=== PATIENT | female | born 1945 | race Caucasian/White ===

== ENCOUNTER 2016-08-23 16:10 | Emergency (ER) | payer MEDICARE, OTHER ==
[2016-08-23 16:36] VITALS: TEMP 97.7
[2016-08-23] MEDS: SODIUM CHLORIDE 0.9% 500 ML IV SCH ×2 (17:40→21:48)
[2016-08-23 18:01] LABS: Basophils % (A) 0 %; CH 30.3; CHCM 33.4; Eosinophils % (A) 0 %; HCT 36.5 % (34.0-46.0); HDW 2.41; HGB 12.1 gm/dL (11.4-16.0); Luc # (Auto) 0.11; Luc % (Auto) 2; Lymphocytes # (A) 0.5 k/uL (1.0-4.8); Lymphocytes % (A) 7 %; MCV 90.8 fL (80.0-100.0); Monocytes # (A) 0.4 k/uL (0-1.0); Monocytes % (A) 5 %; Neutrophils # (A) 6.2 k/uL (1.3-7.7); Neutrophils % (A) 87 %; RBC 4.02 m/uL (3.80-5.40); RDW 14.4 % (11.5-15.5); WBC 7.1 k/uL (3.8-10.6); WBC (Perox) 7.09
[2016-08-23 18:07] LABS: ALT 53 U/L (9-52); AST 25 U/L (14-36); Alkaline Phosphatase 75 U/L (38-126); Anion Gap 4 mmol/L; Blood Urea Nitrogen 34 mg/dL (7-17); Calcium 9.2 mg/dL (8.4-10.2); Carbon Dioxide 27 mmol/L (22-30); Chloride 107 mmol/L (98-107); Glucose 110 mg/dL (74-99); Non-African American GFR(MDRD) 55 (>60 ml/min/1.73 sqM); Potassium 4.4 mmol/L (3.5-5.1); Sodium 138 mmol/L (137-145); Total Bilirubin 0.5 mg/dL (0.2-1.3); Total Protein 5.6 g/dL (6.3-8.2)
[2016-08-23 18:14] LABS: Appearance,Urine Cloudy (Clear); Bacteria,Urine Rare /hpf; Bilirubin,Urine Negative (Negative); Calcium Oxalate Crystals,Urine Many /hpf; Glucose,Urine (UA) Negative (Negative); Ketones,Urine Negative (Negative); Leukocyte Esterase,Urine Trace (Negative); Mucus,Urine Rare /hpf; Nitrite,Urine Negative (Negative); Particle Count 3022; Protein,Urine 1+ (Negative); RBC,Urine 4 /hpf (0-5); Specific Gravity,Urine 1.028 (1.001-1.035); Squamous Epithelial Cell,Urine <1 /hpf (0-4); UA Billing (MACRO vs. MICRO) MICRO; WBC,Urine 10 /hpf (0-5)
[2016-08-23 18:17] LABS: INR 0.9 (<1.1); Prothrombin Time 9.5 sec (9.0-12.0)
[2016-08-23 18:18] LABS: Creatine Kinase MB 0.6 ng/mL (0.0-2.4); Troponin I 0.022 ng/mL (0.000-0.034)
[2016-08-23 18:25] LABS: Partial Thromboplastin Time 19.4 sec (22.0-30.0)
[2016-08-23] MEDS ORDERED: SODIUM CHLORIDE 0.9% 1,000 ML IV ONE (20:00)
--- NOTE | 2016-08-23 20:52 | ED ---
General Adult HPI - General Chief complaint: Recheck/Abnormal Lab/Rx Stated complaint: Sent by [facility]. Time Seen by Provider: 08/23/16 16:46 Source: patient, RN notes reviewed Mode of arrival: ambulatory Limitations: no limitations - History of Present Illness Initial comments: This patient is a 70-year-old woman who presents to be evaluated for decreased urinary output. The patient states that she had been at her radiation oncologist's today at the [facility]. She told him there that she had not urinated today. She states that she also feels she has not been producing much urine over the past 2-3 days. She attributes this to the steroids that she is taking for her metastatic cancer. The patient is denying symptoms of urinary tract infection including no fevers or chills, no flank or abdominal pain, no dysuria or hematuria. -: hour(s) - Related Data Home Medications Medication Instructions Recorded Confirmed Cimetidine [Tagamet] 400 mg PO BID 05/26/14 08/23/16 Metoprolol Tartrate [Lopressor] 25 mg PO BID 05/26/14 08/23/16 Anastrozole [Arimidex] 1 mg PO DAILY 07/06/14 08/23/16 Beclomethasone Dipropionate [Qvar 1 - 2 puff INHALATION RT-BID PRN 06/25/15 80 mcg/puff] Calcium Carbonate/Vitamin D3 1 tab PO TID 06/25/15 08/23/16 [Calcium 600 + Vit D Tablet] Cyanocobalamin [Vitamin B-12] 500 mcg PO DAILY 06/25/15 08/23/16 LORazepam [Ativan] 0.5 mg PO BID PRN 06/25/15 08/23/16 Multivit with Calcium,Iron,Min 1 tab PO DAILY 06/25/15 08/23/16 [Women's Daily Multivitamin] Denosumab [Prolia] 60 mg SQ Q180D 06/30/15 08/23/16 Dexamethasone 4 mg PO BID 07/07/16 08/23/16 Enalapril [Vasotec] 5 mg PO DAILY 07/12/16 08/23/16 Azithromycin [Zithromax] 500 mg PO DAILY 08/23/16 08/23/16 Previous Rx's Medication Instructions Recorded Sulfamethox-Tmp 800-160Mg [Bactrim 1 each PO Q12HR #6 tab 08/23/16 Ds] Allergies Allergy/AdvReac Type Severity Reaction Status Date / Time ciprofloxacin HCl Allergy Itching Verified 08/23/16 17:10 [From Cipro] NSAIDS (Non-Steroidal Allergy Rash/Hives Verified 08/23/16 17:10 Anti-Inflamma aripiprazole [From Abilify] AdvReac sleepiness Verified 08/23/16 17:10 Penicillins AdvReac Nausea Verified 08/23/16 17:10 Review of Systems ROS Statement: Those systems with pertinent positive or pertinent negative responses have been documented in the HPI. ROS Other: All systems not noted in ROS Statement are negative. Constitutional: Reports: weakness. Denies: fever, chills Respiratory: Denies: cough, dyspnea Cardiovascular: Denies: chest pain, palpitations Endocrine: Reports: fatigue Gastrointestinal: Denies: abdominal pain, nausea, vomiting, diarrhea, constipation Genitourinary: Reports: other (Decreased urination). Denies: dysuria, frequency , hematuria Musculoskeletal: Denies: back pain Skin: Denies: rash Neurological: Reports: weakness (Generalized weakness). Denies: headache Past Medical History Past Medical History: Asthma, Cancer, COPD, GERD/Reflux, Hypertension, Osteoarthritis (OA), Renal Disease Additional Past Medical History / Comment(s): osteoporosis,right kidney CA, right BREAST CA-had chemo & radiation 2012, sliding hiatal hernia, 07/09 brain, lung, lymph node of unknown primary at this time, starting radiation 07/12/16. History of Any Multi-Drug Resistant Organisms: None Reported Past Surgical History: Appendectomy, Cholecystectomy, Orthopedic Surgery Additional Past Surgical History / Comment(s): RT mastectomy, lymph node removal , R wrist fx repair, right nephrectomy, left hand surg. Past Anesthesia/Blood Transfusion Reactions: No Reported Reaction Past Psychological History: No Psychological Hx Reported Smoking Status: Former smoker Past Alcohol Use History: Occasional Additional Past Alcohol Use History / Comment(s): quit smoking 1 month, smoked 1 /2-1ppd since mid Past Drug Use History: None Reported - Past Family History Mother Family Medical History: No Reported History Additional Family Medical History / Comment(s): pt adopted no family history General Exam Limitations: no limitations General appearance: alert, in no apparent distress Head exam: Present: atraumatic, other (Treviño facies) Eye exam: Present: normal appearance. Absent: scleral icterus, conjunctival injection ENT exam: Present: mucous membranes dry Neck exam: Present: normal inspection, full ROM Respiratory exam: Present: normal lung sounds bilaterally. Absent: respiratory distress, wheezes, rales, rhonchi Cardiovascular Exam: Present: regular rate, normal rhythm, normal heart sounds. Absent: systolic murmur, diastolic murmur, rubs, gallop GI/Abdominal exam: Present: soft. Absent: distended, tenderness, guarding, rebound, rigid, mass Extremities exam: Absent: pedal edema, calf tenderness Back exam: Present: normal inspection. Absent: CVA tenderness (R), CVA tenderness (L) Neurological exam: Present: alert Skin exam: Present: warm, dry, intact, normal color. Absent: rash Course Vital Signs 08/23/16 08/23/16 08/23/16 16:33 17:14 18:46 Temperature 97.7 F Pulse Rate 90 64 Respiratory 18 18 18 Rate Blood Pressure 111/79 133/74 O2 Sat by Pulse 97 98 Oximetry 08/23/16 20:35 Temperature Pulse Rate 74 Respiratory 16 Rate Blood Pressure 124/69 O2 Sat by Pulse 97 Oximetry EKG Findings - EKG Results: EKG: interpreted by FRANK, sinus rhythm (Rate 70 bpm), normal axis, normal QRS, normal ST/T, no acute changes Medical Decision Making - Medical Decision Making Given the patient's history and the fact that she states she only has one kidney she had labs sent. The results show that her creatinine is at approximately her baseline, but she does have elevated BUN, consistent with prerenal. Patient will be given IV fluid. She also has a few white cells in the urine, and she is given antibiotics here and prescription for the same. She requests to go home and states that she is feeling better. Given that she has come here from her oncologist's office, I paged and discussed her case with Dr. Mckeon, the oncologist. The patient is clear to go home and have close follow-up. Discussed return parameters and appropriate follow-up. - Lab Data Result diagrams: 08/23/16 17:35 08/23/16 17:35 Lab Results 08/23/16 08/23/16 08/23/16 Range/Units 17:35 17:35 17:35 WBC 7.1 (3.8-10.6) k/uL RBC 4.02 (3.80-5.40) m/uL Hgb 12.1 (11.4-16.0) gm/dL Hct 36.5 (34.0-46.0) % MCV 90.8 (80.0-100.0) fL MCH 30.0 (25.0-35.0) pg MCHC 33.0 (31.0-37.0) g/dL RDW 14.4 (11.5-15.5) % Plt Count 137 L (150-450) k/uL Neutrophils % 87 % Lymphocytes % 7 % Monocytes % 5 % Eosinophils % 0 % Basophils % 0 % Neutrophils # 6.2 (1.3-7.7) k/uL Lymphocytes # 0.5 L (1.0-4.8) k/uL Monocytes # 0.4 (0-1.0) k/uL Eosinophils # 0.0 (0-0.7) k/uL Basophils # 0.0 (0-0.2) k/uL PT (9.0-12.0) sec INR (<1.1) APTT (22.0-30.0) sec Sodium 138 (137-145) mmol/L Potassium 4.4 (3.5-5.1) mmol/L Chloride 107 (98-107) mmol/L Carbon Dioxide 27 (22-30) mmol/L Anion Gap 4 mmol/L BUN 34 H (7-17) mg/dL Creatinine 1.00 (0.52-1.04) mg/dL Est GFR (MDRD) Af Amer >60 (>60 ml/min/1.73 sqM) Est GFR (MDRD) Non-Af 55 (>60 ml/min/1.73 sqM) Glucose 110 H (74-99) mg/dL Plasma Lactic Acid Sami (0.7-2.0) mmol/L Calcium 9.2 (8.4-10.2) mg/dL Total Bilirubin 0.5 (0.2-1.3) mg/dL AST 25 (14-36) U/L ALT 53 H (9-52) U/L Alkaline Phosphatase 75 (38-126) U/L Total Creatine Kinase 32 (30-135) U/L CK-MB (CK-2) 0.6 (0.0-2.4) ng/mL CK-MB (CK-2) Rel Index 1.9 Troponin I 0.022 (0.000-0.034) ng/mL Total Protein 5.6 L (6.3-8.2) g/dL Albumin 3.0 L (3.5-5.0) g/dL Cortisol 1 ug/dL Urine Color Urine Appearance (Clear) Urine pH (5.0-8.0) Ur Specific [place] (1.001-1.035) Urine Protein (Negative) Urine Glucose (UA) (Negative) Urine Ketones (Negative) Urine Blood (Negative) Urine Nitrate (Negative) Urine Bilirubin (Negative) Urine Urobilinogen (<2.0) mg/dL Ur Leukocyte Esterase (Negative) Urine RBC (0-5) /hpf Urine WBC (0-5) /hpf Ur Squamous Epith Cells (0-4) /hpf Calcium Oxalate Crystal (None) /hpf Urine Bacteria (None) /hpf Hyaline Casts (0-2) /lpf Urine Mucus (None) /hpf 08/23/16 08/23/16 08/23/16 Range/Units 17:35 17:35 17:47 WBC (3.8-10.6) k/uL RBC (3.80-5.40) m/uL Hgb (11.4-16.0) gm/dL Hct (34.0-46.0) % MCV (80.0-100.0) fL MCH (25.0-35.0) pg MCHC (31.0-37.0) g/dL RDW (11.5-15.5) % Plt Count (150-450) k/uL Neutrophils % % Lymphocytes % % Monocytes % % Eosinophils % % Basophils % % Neutrophils # (1.3-7.7) k/uL Lymphocytes # (1.0-4.8) k/uL Monocytes # (0-1.0) k/uL Eosinophils # (0-0.7) k/uL Basophils # (0-0.2) k/uL PT 9.5 (9.0-12.0) sec INR 0.9 (<1.1) APTT 19.4 L (22.0-30.0) sec Sodium (137-145) mmol/L Potassium (3.5-5.1) mmol/L Chloride (98-107) mmol/L Carbon Dioxide (22-30) mmol/L Anion Gap mmol/L BUN (7-17) mg/dL Creatinine (0.52-1.04) mg/dL Est GFR (MDRD) Af Amer (>60 ml/min/1.73 sqM) Est GFR (MDRD) Non-Af (>60 ml/min/1.73 sqM) Glucose (74-99) mg/dL Plasma Lactic Acid Sami 1.2 (0.7-2.0) mmol/L Calcium (8.4-10.2) mg/dL Total Bilirubin (0.2-1.3) mg/dL AST (14-36) U/L ALT (9-52) U/L Alkaline Phosphatase (38-126) U/L Total Creatine Kinase (30-135) U/L CK-MB (CK-2) (0.0-2.4) ng/mL CK-MB (CK-2) Rel Index Troponin I (0.000-0.034) ng/mL Total Protein (6.3-8.2) g/dL Albumin (3.5-5.0) g/dL Cortisol ug/dL Urine Color Yellow Urine Appearance Cloudy H (Clear) Urine pH 6.0 (5.0-8.0) Ur Specific [place] 1.028 (1.001-1.035) Urine Protein 1+ H (Negative) Urine Glucose (UA) Negative (Negative) Urine Ketones Negative (Negative) Urine Blood Negative (Negative) Urine Nitrate Negative (Negative) Urine Bilirubin Negative (Negative) Urine Urobilinogen 3.0 (<2.0) mg/dL Ur Leukocyte Esterase Trace H (Negative) Urine RBC 4 (0-5) /hpf Urine WBC 10 H (0-5) /hpf Ur Squamous Epith Cells <1 (0-4) /hpf Calcium Oxalate Crystal Many H (None) /hpf Urine Bacteria Rare H (None) /hpf Hyaline Casts 1 (0-2) /lpf Urine Mucus Rare H (None) /hpf Disposition Clinical Impression: Dehydration, Urinary tract infection Disposition: HOME SELF-CARE Condition: Fair Instructions: Urinary Tract Infection in Women (ED) Prescriptions: Sulfamethox-Tmp 800-160Mg [Bactrim Ds] 1 each PO Q12HR #6 tab Referrals: Ronnell Koo MD [Primary Care Provider] - 1-2 days
[2016-08-23 21:01] VITALS: BP 124/69; PULSE 74; RESP 16
== END 2016-08-23 21:20 | disposition home or self-care (01) ==
LOC: EC 16:10
DX: E86.0 Dehydration (principal); N39.0 Urinary tract infection, site not specified; K21.9 Gastro-esophageal reflux disease without esophagitis; I10 Essential (primary) hypertension; J45.909 Unspecified asthma, uncomplicated; J44.9 Chronic obstructive pulmonary disease, unspecified; Z79.899 Other long term (current) drug therapy; Z88.0 Allergy status to penicillin; Z88.6 Allergy status to analgesic agent; Z88.1 Allergy status to other antibiotic agents; Z88.8 Allergy status to other drugs, medicaments and biological substances; Z85.3 Personal history of malignant neoplasm of breast; Z87.891 Personal history of nicotine dependence; Z79.51 Long term (current) use of inhaled steroids; Z92.3 Personal history of irradiation; Z92.21 Personal history of antineoplastic chemotherapy
CPT/HCPCS: 36415; 93005; 80053; 82533; 82550; 82553; 83605; 84484; 85025; 85610; 85730; 81001; 87040; 87086; 99283; 96365; J0696; 87077; 87186

== ENCOUNTER 2016-09-04 11:28 | Inpatient (IN) | payer BC, MEDICARE, OTHER ==
[2016-09-04] MEDS ORDERED: SODIUM CHLORIDE 0.9% 1,000 ML IV STA (11:48)
--- NOTE | 2016-09-04 11:50 | ED ---
General Adult HPI - General Chief complaint: Weakness Stated complaint: Weakness Time Seen by Provider: 09/04/16 11:38 Source: patient, EMS, RN notes reviewed Mode of arrival: EMS Limitations: physical limitation - History of Present Illness Initial comments: Patient is a pleasant 70-year-old female presenting to the emergency department for concerns of weakness and not being able to take care of herself. Patient does have a history of breast cancer with radiation to the brain. Patient did recently finish radiation therapy and has started chemotherapy. Patient does have progressive right-sided weakness. Patient is unable to get in and out of bed on her own. Patient is unable to use her walker. Patient is fearful living at home at this time. Patient states she has had some dyspnea and elevated heart rate for a couple of months now. - Related Data Home Medications Medication Instructions Recorded Confirmed Cimetidine [Tagamet] 400 mg PO BID 05/26/14 09/04/16 Metoprolol Tartrate [Lopressor] 25 mg PO BID 05/26/14 09/04/16 Beclomethasone Dipropionate [Qvar 1 - 2 puff INHALATION RT-BID PRN 06/25/1506/10 80 mcg/puff] Calcium Carbonate/Vitamin D3 1 tab PO TID 06/25/15 09/04/16 [Calcium 600 + Vit D Tablet] Cyanocobalamin [Vitamin B-12] 500 mcg PO DAILY 06/25/15 09/04/16 Multivit with Calcium,Iron,Min 1 tab PO DAILY 06/25/15 09/04/16 [Women's Daily Multivitamin] Denosumab [Prolia] 60 mg SQ Q180D 06/30/15 09/04/16 Dexamethasone 4 mg PO BID 07/07/16 09/04/16 Enalapril [Vasotec] 5 mg PO DAILY 07/12/16 09/04/16 Anastrozole [Arimidex] 1 mg PO DAILY 09/04/16 09/04/16 LORazepam [Ativan] 0.5 mg PO BID PRN 09/04/16 09/04/16 Allergies Allergy/AdvReac Type Severity Reaction Status Date / Time ciprofloxacin HCl Allergy Itching Verified 09/04/16 13:13 [From Cipro] NSAIDS (Non-Steroidal Allergy Rash/Hives Verified 09/04/16 13:13 Anti-Inflamma aripiprazole [From Abilify] AdvReac sleepiness Verified 09/04/16 13:13 Penicillins AdvReac Nausea Verified 09/04/16 13:13 Review of Systems ROS Statement: Those systems with pertinent positive or pertinent negative responses have been documented in the HPI. ROS Other: All systems not noted in ROS Statement are negative. Constitutional: Denies: fever Eyes: Denies: eye pain ENT: Denies: ear pain Respiratory: Reports: dyspnea. Denies: cough Cardiovascular: Reports: palpitations Endocrine: Reports: fatigue Gastrointestinal: Denies: abdominal pain Genitourinary: Denies: dysuria Skin: Denies: rash Neurological: Reports: weakness (Right-sided) Past Medical History Past Medical History: Asthma, Cancer, COPD, GERD/Reflux, Hypertension, Osteoarthritis (OA), Renal Disease Additional Past Medical History / Comment(s): osteoporosis,right kidney CA, right BREAST CA-had chemo & radiation 2012, sliding hiatal hernia, 07/09 brain, lung, lymph node of unknown primary at this time, starting radiation 07/12/16. History of Any Multi-Drug Resistant Organisms: None Reported Past Surgical History: Appendectomy, Cholecystectomy, Orthopedic Surgery Additional Past Surgical History / Comment(s): RT mastectomy, lymph node removal , R wrist fx repair, right nephrectomy, left hand surg. Past Anesthesia/Blood Transfusion Reactions: No Reported Reaction Past Psychological History: No Psychological Hx Reported Smoking Status: Former smoker Past Alcohol Use History: Occasional Additional Past Alcohol Use History / Comment(s): quit smoking 1 month, smoked 1 /2-1ppd since mid Past Drug Use History: None Reported - Past Family History Mother Family Medical History: No Reported History Additional Family Medical History / Comment(s): pt adopted no family history General Exam Limitations: no limitations General appearance: alert, in no apparent distress Head exam: Present: atraumatic Eye exam: Present: normal appearance, PERRL ENT exam: Present: normal oropharynx Neck exam: Present: normal inspection Respiratory exam: Present: normal lung sounds bilaterally Cardiovascular Exam: Present: tachycardia GI/Abdominal exam: Present: soft. Absent: tenderness Extremities exam: Present: normal inspection Neurological exam: Present: alert Expanded Motor strength exam: RUE: 4, LUE: 5, RLE: 3, LLE: 5 Psychiatric exam: Present: normal affect, normal mood Skin exam: Absent: rash Course Vital Signs 09/04/16 09/04/16 11:38 13:34 Temperature 98.1 F 98.3 F Pulse Rate 134 H 130 H Respiratory 18 17 Rate Blood Pressure 138/73 118/86 O2 Sat by Pulse 96 98 Oximetry EKG Findings - EKG Comments: EKG Findings:: Sinus tachycardia 131. NH 142. QRS 68. QT 286. QTc 422. Normal axis. Normal QRS. Normal ST-T. Medical Decision Making - Medical Decision Making Patient reexamined and unchanged. Case was discussed in detail with Dr. Velez who did come evaluate the patient. Case also discussed with Dr. Hanson, who will admit. - Lab Data Result diagrams: 09/04/16 12:15 09/04/16 12:15 Lab Results 09/04/16 09/04/16 09/04/16 Range/Units 12:15 12:15 12:15 WBC 6.4 (3.8-10.6) k/uL RBC 4.35 (3.80-5.40) m/uL Hgb 12.8 (11.4-16.0) gm/dL Hct 39.3 (34.0-46.0) % MCV 90.3 (80.0-100.0) fL MCH 29.4 (25.0-35.0) pg MCHC 32.6 (31.0-37.0) g/dL RDW 14.7 (11.5-15.5) % Plt Count 108 L (150-450) k/uL Neutrophils % 73 % Lymphocytes % 15 % Monocytes % 7 % Eosinophils % 1 % Basophils % 1 % Neutrophils # 4.7 (1.3-7.7) k/uL Lymphocytes # 1.0 (1.0-4.8) k/uL Monocytes # 0.5 (0-1.0) k/uL Eosinophils # 0.1 (0-0.7) k/uL Basophils # 0.0 (0-0.2) k/uL PT (9.0-12.0) sec INR (<1.1) APTT (22.0-30.0) sec Sodium 137 (137-145) mmol/L Potassium 4.2 (3.5-5.1) mmol/L Chloride 103 (98-107) mmol/L Carbon Dioxide 25 (22-30) mmol/L Anion Gap 9 mmol/L BUN 19 H (7-17) mg/dL Creatinine 1.19 H (0.52-1.04) mg/dL Est GFR (MDRD) Af Amer 55 (>60 ml/min/1.73 sqM) Est GFR (MDRD) Non-Af 45 (>60 ml/min/1.73 sqM) Glucose 140 H (74-99) mg/dL Calcium 10.0 (8.4-10.2) mg/dL Total Bilirubin 1.6 H (0.2-1.3) mg/dL AST 38 H (14-36) U/L ALT 53 H (9-52) U/L Alkaline Phosphatase 88 (38-126) U/L Total Creatine Kinase 91 (30-135) U/L CK-MB (CK-2) 0.7 (0.0-2.4) ng/mL CK-MB (CK-2) Rel Index 0.8 Troponin I 0.058 H* (0.000-0.034) ng/mL Total Protein 6.9 (6.3-8.2) g/dL Albumin 3.6 (3.5-5.0) g/dL Urine Color Urine Appearance (Clear) Urine pH (5.0-8.0) Ur Specific [place] (1.001-1.035) Urine Protein (Negative) Urine Glucose (UA) (Negative) Urine Ketones (Negative) Urine Blood (Negative) Urine Nitrate (Negative) Urine Bilirubin (Negative) Urine Urobilinogen (<2.0) mg/dL Ur Leukocyte Esterase (Negative) Urine RBC (0-5) /hpf Urine WBC (0-5) /hpf Ur Squamous Epith Cells (0-4) /hpf Calcium Oxalate Crystal (None) /hpf Hyaline Casts (0-2) /lpf Urine Mucus (None) /hpf 09/04/16 09/04/16 Range/Units 12:15 12:20 WBC (3.8-10.6) k/uL RBC (3.80-5.40) m/uL Hgb (11.4-16.0) gm/dL Hct (34.0-46.0) % MCV (80.0-100.0) fL MCH (25.0-35.0) pg MCHC (31.0-37.0) g/dL RDW (11.5-15.5) % Plt Count (150-450) k/uL Neutrophils % % Lymphocytes % % Monocytes % % Eosinophils % % Basophils % % Neutrophils # (1.3-7.7) k/uL Lymphocytes # (1.0-4.8) k/uL Monocytes # (0-1.0) k/uL Eosinophils # (0-0.7) k/uL Basophils # (0-0.2) k/uL PT 10.1 (9.0-12.0) sec INR 1.0 (<1.1) APTT 21.8 L (22.0-30.0) sec Sodium (137-145) mmol/L Potassium (3.5-5.1) mmol/L Chloride (98-107) mmol/L Carbon Dioxide (22-30) mmol/L Anion Gap mmol/L BUN (7-17) mg/dL Creatinine (0.52-1.04) mg/dL Est GFR (MDRD) Af Amer (>60 ml/min/1.73 sqM) Est GFR (MDRD) Non-Af (>60 ml/min/1.73 sqM) Glucose (74-99) mg/dL Calcium (8.4-10.2) mg/dL Total Bilirubin (0.2-1.3) mg/dL AST (14-36) U/L ALT (9-52) U/L Alkaline Phosphatase (38-126) U/L Total Creatine Kinase (30-135) U/L CK-MB (CK-2) (0.0-2.4) ng/mL CK-MB (CK-2) Rel Index Troponin I (0.000-0.034) ng/mL Total Protein (6.3-8.2) g/dL Albumin (3.5-5.0) g/dL Urine Color Yellow Urine Appearance Clear (Clear) Urine pH 6.0 (5.0-8.0) Ur Specific [place] 1.021 (1.001-1.035) Urine Protein 1+ H (Negative) Urine Glucose (UA) Negative (Negative) Urine Ketones Negative (Negative) Urine Blood Trace H (Negative) Urine Nitrate Negative (Negative) Urine Bilirubin Negative (Negative) Urine Urobilinogen <2.0 (<2.0) mg/dL Ur Leukocyte Esterase Negative (Negative) Urine RBC 6 H (0-5) /hpf Urine WBC 4 (0-5) /hpf Ur Squamous Epith Cells <1 (0-4) /hpf Calcium Oxalate Crystal Few H (None) /hpf Hyaline Casts 3 H (0-2) /lpf Urine Mucus Rare H (None) /hpf - Radiology Data Radiology results: image reviewed (Chest x-ray shows right middle lobe infiltrate) Disposition Clinical Impression: Weakness, Pneumonia Disposition: ADMITTED IP TO THIS HOSP
[2016-09-04 12:49] LABS: Basophils % (A) 1 %; CH 30.5; CHCM 33.9; Eosinophils # (A) 0.1 k/uL (0-0.7); Eosinophils % (A) 1 %; HCT 39.3 % (34.0-46.0); HDW 2.68; HGB 12.8 gm/dL (11.4-16.0); Luc # (Auto) 0.17; Luc % (Auto) 3; Lymphocytes % (A) 15 %; MCH 29.4 pg (25.0-35.0); MCHC 32.6 g/dL (31.0-37.0); MCV 90.3 fL (80.0-100.0); Mean Platelet Volume 8.4; Monocytes # (A) 0.5 k/uL (0-1.0); Monocytes % (A) 7 %; Neutrophils # (A) 4.7 k/uL (1.3-7.7); Neutrophils % (A) 73 %; RBC 4.35 m/uL (3.80-5.40); RDW 14.7 % (11.5-15.5); WBC 6.4 k/uL (3.8-10.6); WBC (Perox) 6.66
--- NOTE | 2016-09-04 12:53 | XR ---
EXAMINATION TYPE: XR chest 2V DATE OF EXAM: 09/04/2016 12:38 PM COMPARISON: 04/27/2016 HISTORY: Weakness TECHNIQUE: Frontal and lateral views of the chest are obtained. FINDINGS: There is some infiltrate in the right middle lobe seen on the lateral view. The other lung anderson are clear. There is no heart failure. Heart is slightly enlarged. There are chest leads. Ther e is no definite pleural effusion. Bony thorax appears intact. IMPRESSION: There is new right middle lobe pneumonic infiltrate compared to last exam. No heart fail ure.
[2016-09-04 13:00] LABS: Appearance,Urine Clear (Clear); Bilirubin,Urine Negative (Negative); Calcium Oxalate Crystals,Urine Few /hpf; Glucose,Urine (UA) Negative (Negative); Ketones,Urine Negative (Negative); Leukocyte Esterase,Urine Negative (Negative); Mucus,Urine Rare /hpf; Nitrite,Urine Negative (Negative); Particle Count 4601; Protein,Urine 1+ (Negative); RBC,Urine 6 /hpf (0-5); Specific Gravity,Urine 1.021 (1.001-1.035); Squamous Epithelial Cell,Urine <1 /hpf (0-4); UA Billing (MACRO vs. MICRO) MICRO; Urobilinogen,Urine <2.0 mg/dL (<2.0); WBC,Urine 4 /hpf (0-5)
[2016-09-04 13:09] LABS: Prothrombin Time 10.1 sec (9.0-12.0)
[2016-09-04 13:10] LABS: Total Bilirubin 1.6 mg/dL (0.2-1.3); Total Protein 6.9 g/dL (6.3-8.2)
[2016-09-04 13:11] LABS: Potassium 4.2 mmol/L (3.5-5.1)
[2016-09-04 13:13] LABS: Partial Thromboplastin Time 21.8 sec (22.0-30.0)
[2016-09-04 13:29] LABS: Creatine Kinase MB 0.7 ng/mL (0.0-2.4)
[2016-09-04 13:38] LABS: Troponin I 0.058 ng/mL (0.000-0.034)
[2016-09-04] MEDS ORDERED: PNEUMONIA PROTOCOL UTILIZED 1 EACH MISC PO PRN (14:28)
[2016-09-04] MEDS ORDERED: AZITHROMYCIN 500 MG in SODIUM CHLORIDE 0.9% 250 ML IVPB STA (14:28)
[2016-09-04 17:07] VITALS: BMI 34.0
[2016-09-04] MEDS ORDERED: DENOSUMAB 60 MG/ML 1 ML SYRINGE SQ SCH (17:15)
--- NOTE | 2016-09-04 19:42 | HP ---
DATE OF ADMISSION: Patient is a 70-year-old pleasant female with history of breast cancer, is actively receiving radiation therapy for metastatic disease for pain, came in with complaints of generalized weakness, unable to take care of herself, anxiety, has been going on for 3 days. Patient has been subsequently getting ( ). Patient is also complaining of ( ) with musculoskeletal chest pain in the right chest, probably from the metastatic disease. Patient appears to have a few mets into the adrenal glands, she says it is kidney and some other places. Patient is on Decadron for metastasis to the brain. Patient is presently undergoing radiation. Patient is having generalized weakness and patient was brought into [facility] and patient is complaining of some minimal cough as well as multiple episodes of diarrhea yesterday and cough with sputum production. Patient is unable to tell me what color of sputum she was producing. Patient has low-grade fevers here. Patient denied any fevers at home or chills at home. Home medications include ( ), metoprolol, ( ), calcium carbonate, cyanocobalamin, multivitamin, Prolia, dexamethasone, Enalapril, anastrazole and lorazepam. ALLERGIES: ALLERGIC TO CIPROFLOXACIN, NSAIDS, ( ), APRESOLINE. REVIEW OF SYSTEMS: CONSTITUTIONAL: As described in HPI. HEENT: No recent visual problems or hearing problems. Denied any sore throat. CARDIOVASCULAR: No chest pain, orthopnea, PND, no palpitations, no syncope. PULMONARY: As described in HPI. Patient was also complaining of shortness of breath. Denied any orthopnea or PND. GASTROINTESTINAL: No diarrhea, no nausea, no vomiting, no abdominal pain. Normoactive bowel sounds. NEUROLOGICAL: No headaches, no weakness, no numbness. HEMATOLOGICAL: Denies any bleeding or petechiae. GENITOURINARY: Denies any burning micturition, frequency, or urgency. MUSCULOSKELETAL/RHEUMATOLOGICAL: Denies any joint pain, swelling, or any muscle pain. ENDOCRINE: Denies any polyuria or polydipsia. The rest of the 14 point review of systems is negative. PAST MEDICAL HISTORY: Significant for COPD, gastroesophageal reflux disease, hypertension, osteoarthritis, breast cancer, metastatic disease, mets to the brain, chronic kidney disease stage II, hiatal hernia, appendectomy, cholecystectomy, orthopedic surgery, former smoker, used to smoke one and a half packs per day. Denied any alcohol abuse or any drug abuse. FAMILY HISTORY: Patient is adopted and does not know any of mother or father's history. PHYSICAL EXAMINATION: VITAL SIGNS: Temperature 98.1, pulse of 134, respiratory rate of 17, blood pressure is 138/73, saturating at 98% on room air. GENERAL EXAMINATION: Patient appears to be in minimal respiratory distress. Alert and oriented x3. HEENT: Pupils are round and equally reacting to light. EOMI. No scleral icterus. No conjunctival pallor. Normocephalic, atraumatic. No pharyngeal erythema. No thyromegaly. CARDIOVASCULAR: S1 and S2 present. No murmurs, rubs, or gallops. PULMONARY: On lung examination there were crackles in the right upper and posterior lung anderson with bronchophony and egophony on exam. ABDOMEN: Soft, nontender, nondistended, normoactive bowel sounds. No palpable organomegaly. MUSCULOSKELETAL: No joint swelling or deformity. EXTREMITIES: No cyanosis, clubbing, or pedal edema. NEUROLOGICAL: Gross neurological examination did not reveal any focal deficits. SKIN: No rashes. LABORATORY DATA: CBC and CMP are abnormal for normal WBC count, normal hemoglobin. Minimally elevated troponin of 0.058. Normal CK-MB. UA not significantly abnormal. Chest x-ray showed right middle lobe pneumonia. ASSESSMENT AND PLAN: 1. ( ) secondary to right middle lobe pneumonia and patient will be started on IV Zosyn. I will obtain ( ) vancomycin, which will be continued at this point of time. 2. Acute hypoxic respiratory failure secondary to pneumonia for which patient will continue with respiratory support. 3. Chronic obstructive pulmonary disease without any acute exacerbation at this point of time. Continue with Symbicort, continue with inhalational steroids and continue with albuterol and ipratropium. 4. Gastroesophageal reflux disease. 5. Breast cancer with metastasis to the brain. Continue with Decadron and Oncology was consulted. 6. Osteoarthritis. 7. Acute kidney injury with possibility of chronic kidney disease stage II for which patient will be started on IV fluids. 8. We will continue with her pain medications. Will continue with anastrazole and Prolia for her breast cancer. 9. Patient's primary care physician is Dr. Ronnell Koo.
[2016-09-04] MEDS: HYDROcodone/APAP 7.5-325MG 1 EACH TAB PO PRN (19:53)
[2016-09-04] MEDS: SODIUM CHLORIDE 0.9% 1,000 ML IV SCH ×4 (19:57→22:54)
--- NOTE | 2016-09-04 20:47 | CONS ---
DATE OF CONSULTATION: 09/04/2016 REASON FOR CONSULTATION: Metastatic breast cancer. CHIEF COMPLAINT: Right-sided weakness. Maile is a very pleasant 70-year-old lady, very well-known to me. The patient initially presented with palpable right axillary lymph node in April 2012. Her work-up revealed a 2 cm suspicious lesion in the right breast. She had a biopsy, which was positive for malignancy. She underwent right modified mastectomy on June 07, 2012, revealing 2 foci of areas of carcinoma, 2 cm and 1.8 cm, and unfortunately she has 14 out of 25 axillary lymph nodes positive for metastatic disease, estrogen receptor and progesterone receptor positive, and HER-2/lupillo by FISH. Her initial work-up at that time with a CT scan of the chest, abdomen and pelvis and bone scan revealed no evidence of metastatic disease, however, she was found to have a right renal mass, which was suspicious for renal cell carcinoma. The patient started adjuvant chemotherapy with a combination of Taxotere, carboplatin and Herceptin regimen on 07/20/2012 and she completed 6 cycles on 11/02/2012, which she tolerated very well. Subsequently, she was started on Arimidex and she received adjuvant radiation therapy to her chest wall as well, which was completed in December 2012. Then she completed one year of Herceptin on 07/12/2013. 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 The patient had been doing fairly well and she continued on Arimidex and also she was receiving [place] for osteoporosis. Unfortunately, she did well until June 2016 when she presented with left facial numbness, headaches and progressive weakness. She had a MRI done of the brain on 06/30/2016 which revealed at least 7 enhancing parenchymal brain lesions. Repeat CT scan of the chest, abdomen, and pelvis revealed a new 2.5 cm subcarinal node. She did undergo a brain biopsy on 08/08/2016, which was positive for metastatic breast carcinoma. Subsequently, the patient underwent whole brain radiation therapy, which was completed on 08/30/2016. The patient presented to the emergency department yesterday with progressive right upper extremity and right lower extremity weakness. She could not move her leg. She felt tired with inability to move right leg. She was also found to be tachycardic and she had some wheezing in her lungs. She is being admitted to the hospital for further evaluation. Overall, just feels very tired. She is short of breath with slight exertion. She has difficult hard ambulating and moving her right leg and also she has weakness in her right upper extremity as well. She denies any fever or chills. Her appetite is borderline but she has not lost any weight. She does not have any headaches or nausea or vomiting. No dysphagia. She is short of breath with exertion. No nausea or vomiting. No melena, hematochezia, hematuria, hemoptysis, hematemesis or epistaxis. PAST MEDICAL HISTORY: In addition to what is stated above in regard to her breast cancer and her renal cell carcinoma, she has a history of hypertension and osteoporosis. PAST SURGICAL HISTORY: She had a right mastectomy, appendectomy, cholecystectomy, and right nephrectomy. FAMILY HISTORY: She is adopted. SOCIAL HISTORY: She is a smoker. She continues to smoke. No alcohol abuse or substance abuse. She is . ALLERGIES: CIPRO, PENICILLIN, ANCEF. REVIEW OF SYSTEMS: As stated above in the history of present illness, otherwise noncontributory. On physical examination she is alert and oriented x3. She does not appear to be in distress. VITAL SIGNS: Her vital signs: Temperature 99.1, afebrile, pulse 124, respirations 20, blood pressure 118/86. HEENT: Normocephalic, atraumatic. No obvious icterus. NECK: Supple. No jugular venous distention. CHEST: Equal expansion bilaterally. LUNGS: Reveal scattered wheezes in all anderson. HEART: Tachy and regular. ABDOMEN: Soft. No apparent organomegaly or masses. EXTREMITIES: Reveal no edema. SKIN: No significant bruises, ecchymosis or petechia. LYMPHATICS: No peripherally enlarged cervical, supraclavicular lymphadenopathy. MUSCULOSKELETAL: She has upper motor weakness in the right upper extremity and right lower extremity as well. LYMPHATICS: No peripherally enlarged cervical, supraclavicular lymphadenopathy. There is no percussion tenderness detected over spine or sternum. LABORATORY DATA: WBC 6.4, hemoglobin 12.8, hematocrit 39.3, platelets are 105. Sodium 137, potassium 4.2, chloride 103, BUN is 19, creatinine 1.19. Total bilirubin is 1.6, AST 38, ALT 53, alkaline phosphatase is 88. Her troponin is 0.08. Chest x-ray revealed a new right middle lobe infiltrate. IMPRESSION: 1. Metastatic breast carcinoma with diagnostic and therapeutic circumstances as stated above, with recent completion of palliative whole brain radiation therapy. 2. History of early stage renal cell carcinoma. 3. Progressive right-sided weakness related to brain metastases. 4. Possible pneumonia. RECOMMENDATIONS: 1. Agree with admitting the patient to the hospital. 2. Agree with starting the patient on antibiotics. 3. The patient has been, in the outpatient setting, on tapering dose of Decadron. We will resume Decadron while she is in the hospital and this time and we will increase the dose, hopefully that will help her overall neurological symptoms. 4. Her overall prognosis is very guarded. The patient is aware of that and the plan is based on how much improvement she gets in her performance status, then systemic treatment would be considered. We did discuss the option of treatment with Ado-Trastuzumab Emtansin as an outpatient versus treatment with oral Cabecitabine and Lapatinib in the outpatient setting based on her improvement in performance status. The above was discussed in detail with the patient and all questions were answered her satisfaction. Thank you very much for allowing me to participate in the care of this patient.
[2016-09-04] MEDS: METOPROLOL TARTRATE 25 MG TAB PO SCH (20:59)
[2016-09-04] MEDS: FAMOTIDINE 20 MG TAB PO SCH (20:59)
[2016-09-04] MEDS: DEXAMETHASONE 4 MG TAB PO SCH (20:59)
[2016-09-05] MEDS: HYDROcodone/APAP 7.5-325MG 1 EACH TAB PO PRN (06:56)
[2016-09-05] MEDS: ALBUTEROL NEBULIZED 2.5 MG/3 ML INHALATION PRN ×2 (07:06→19:28)
[2016-09-05 07:16] LABS: CH 30.6; CHCM 33.7; HCT 38.8 % (34.0-46.0); HGB 12.8 gm/dL (11.4-16.0); Mean Platelet Volume 9.1; RBC 4.26 m/uL (3.80-5.40); RDW 14.4 % (11.5-15.5)
[2016-09-05 08:14] LABS: ALT 50 U/L (9-52); AST 41 U/L (14-36); Alkaline Phosphatase 97 U/L (38-126); Anion Gap 10 mmol/L; Blood Urea Nitrogen 24 mg/dL (7-17); Calcium 9.8 mg/dL (8.4-10.2); Carbon Dioxide 23 mmol/L (22-30); Chloride 105 mmol/L (98-107); Glucose 141 mg/dL (74-99); Non-African American GFR(MDRD) 55 (>60 ml/min/1.73 sqM); Potassium 4.8 mmol/L (3.5-5.1); Sodium 138 mmol/L (137-145); Total Bilirubin 1.3 mg/dL (0.2-1.3); Total Protein 6.3 g/dL (6.3-8.2)
[2016-09-05] MEDS: METOPROLOL TARTRATE 25 MG TAB PO SCH ×2 (08:24→20:05)
[2016-09-05] MEDS: DEXAMETHASONE 4 MG TAB PO SCH ×2 (08:24→20:05)
[2016-09-05] MEDS: ANASTROZOLE 1 MG TAB PO SCH (08:24)
[2016-09-05] MEDS: SODIUM CHLORIDE 0.9% 1,000 ML IV SCH ×4 (08:26→18:05)
--- NOTE | 2016-09-05 08:29 | XR ---
EXAMINATION TYPE: XR chest 2V DATE OF EXAM: 09/05/2016 6:30 AM COMPARISON: September 04, 2016 HISTORY: Weakness, history of breast cancer with intracranial metastasis and current shortness of serina ath. TECHNIQUE: Frontal and lateral views of the chest are obtained. FINDINGS: There is worsening of the right middle lobe infiltrate, again best appreciated on the late ral image. There is also a degree of atelectasis within the right lower lobe is there is a secondary sign of volume loss demonstrated as right hemidiaphragm elevation. Remainder the lungs are again katherine r. Cardia mediastinal silhouette is within normal limits of size. Osseous structures appear intact. IMPRESSION: Worsening right middle lobe pneumonia and right basilar atelectasis.
--- NOTE | 2016-09-05 12:13 | PN ---
Patient is a 70-year-old admitted with right middle lobe pneumonia. Patient has chest wall pain which is musculoskeletal in nature. Patient is still a bit tachycardic. I will continue with IV fluids. I will also obtain a TSH level on her and it is probably because of pneumonia. Continue with antibiotics and possibility of discharge tomorrow. I will repeat another troponin. Troponin elevation is secondary to pneumonia and sepsis. REVIEW OF SYSTEMS: CARDIOVASCULAR: No chest pain, no orthopnea, no PND, no palpitations. PULMONARY: Denied any shortness of breath. No cough or hemoptysis. GASTROINTESTINAL: No diarrhea, nausea or vomiting. No abdominal pain. Normoactive bowel sounds. NEUROLOGIC: No headaches, no weakness, no numbness. Patient is feeling much better compared to yesterday. Medications were reviewed. PHYSICAL EXAMINATION: Temperature 97.1, pulse 113, respiratory rate 22, blood pressure is 130/71, saturating at 90% on room air. GENERAL: The patient is alert and oriented x3, not in any acute distress. Well developed, well nourished. HEENT: Pupils are round and equally reacting to light. EOMI. No scleral icterus. No conjunctival pallor. Normocephalic, atraumatic. No pharyngeal erythema. No thyromegaly. CARDIOVASCULAR: S1 and S2 present. No murmurs, rubs, or gallops. PULMONARY: Chest is clear to auscultation, no wheezing or crackles. ABDOMEN: Soft, nontender, nondistended, normoactive bowel sounds. No palpable organomegaly. MUSCULOSKELETAL: No joint swelling or deformity. EXTREMITIES: No cyanosis, clubbing, or pedal edema. NEUROLOGICAL: Gross neurological examination did not reveal any focal deficits. SKIN: No rashes. LABORATORY DATA: CBC, CMP are abnormal for elevated BUN and creatinine. Although, creatinine minimally improved compared to yesterday. Mildly low platelet count of 103,000. ASSESSMENT AND PLAN: 1. Sepsis secondary to right middle lobe pneumonia. Continue with Rocephin and azithromycin. 2. Acute hypoxic respiratory pneumonia secondary to pneumonia. 3. Chronic obstructive pulmonary disease without any significant exacerbation at this point of time. 4. Gastroesophageal reflux disease. 5. Breast cancer with metastatic disease to brain. Patient is on Decadron, which will be continued. 6. Acute kidney injury, which is improving with IV fluid resuscitation secondary to intravascular volume depletion from sepsis. 7. Tachycardia due to intravascular volume depletion. 8. Breast cancer for which patient is on anastrozole and Prolia, which will be continued.
[2016-09-05] MEDS: AZITHROMYCIN 500 MG TAB PO SCH (12:41)
[2016-09-05] MEDS: SYMBICORT 160-4.5 MCG INHALER INHALATION SCH (19:28)
[2016-09-05] MEDS: FAMOTIDINE 20 MG TAB PO SCH (20:05)
[2016-09-05] MEDS: LORazepam 0.5 MG TAB PO PRN (20:07)
[2016-09-06] MEDS: SODIUM CHLORIDE 0.9% 1,000 ML IV SCH ×3 (01:38→21:43)
[2016-09-06] MEDS: SYMBICORT 160-4.5 MCG INHALER INHALATION SCH ×2 (07:10→18:56)
[2016-09-06] MEDS: BECLOMETHASONE DIP 80 MCG/PUFF INHALER INHALATION PRN ×2 (07:11→18:56)
[2016-09-06 08:09] LABS: Anion Gap 9 mmol/L; Blood Urea Nitrogen 20 mg/dL (7-17); Calcium 9.7 mg/dL (8.4-10.2); Carbon Dioxide 23 mmol/L (22-30); Chloride 109 mmol/L (98-107); Glucose 132 mg/dL (74-99); Non-African American GFR(MDRD) >60 (>60 ml/min/1.73 sqM); Potassium 4.3 mmol/L (3.5-5.1); Sodium 141 mmol/L (137-145)
[2016-09-06] MEDS: LORazepam 0.5 MG TAB PO PRN (08:29)
[2016-09-06] MEDS: AZITHROMYCIN 500 MG TAB PO SCH (08:29)
[2016-09-06] MEDS: METOPROLOL TARTRATE 25 MG TAB PO SCH ×3 (08:29→21:42)
[2016-09-06] MEDS: DEXAMETHASONE 4 MG TAB PO SCH ×2 (08:30→21:42)
[2016-09-06] MEDS: ANASTROZOLE 1 MG TAB PO SCH (08:30)
[2016-09-06] MEDS ORDERED: RX INFO: IV CONTRAST WAS GIVEN 1 EACH MISC MISCELLANE PRN (09:49)
--- NOTE | 2016-09-06 10:01 | P.CRDCN ---
History of Present Illness Consult date: 09/06/16 Chief complaint: Shortness of breath History of present illness: This is a pleasant 70-year-old female patient who sees Dr. Umana as an outpatient with a past medical history significant for hypertension who was diagnosed with breast cancer with metastasis to the brain as well as renal cell carcinoma was admitted to the hospital with shortness of breath. The patient was diagnosed with COPD exacerbation as well as with community-acquired pneumonia. The patient has right sided weakness secondary to the metastasis to the brain and she is on steroids as an outpatient. We get involved in the care of the patient because her cardiac enzymes were checked and came in to be slightly abnormal. The patient also describes atypical chest discomfort. She is not aware of any prior history of coronary artery disease or coronary artery revascularization. On physical examination, she is tachycardic with heart rate around 100. The blood pressure has been within normal range. Also, the patient has reproducible chest discomfort. In view of the patient's poor prognosis I would recommend a conservative medical approach. The patient abnormal cardiac enzymes is likely secondary to the thigh sinus tachycardia. I am going to increase the dose of metoprolol to 25 mg by mouth 3 times a day. We'll obtain an echocardiogram was Doppler. I would not recommend any further cardiac workup at this point. Past Medical History Past Medical History: Asthma, Cancer, COPD, GERD/Reflux, Hypertension, Osteoarthritis (OA), Renal Disease Additional Past Medical History / Comment(s): . History of Any Multi-Drug Resistant Organisms: None Reported Past Surgical History: Appendectomy, Cholecystectomy, Orthopedic Surgery Additional Past Surgical History / Comment(s): RT mastectomy, lymph node removal , R wrist fx repair, right nephrectomy, Past Anesthesia/Blood Transfusion Reactions: No Reported Reaction Past Psychological History: Depression Smoking Status: Former smoker Past Alcohol Use History: Occasional Additional Past Alcohol Use History / Comment(s): quit smoking 1 month, smoked 1 /2-1ppd since mid Past Drug Use History: None Reported - Past Family History Mother Family Medical History: No Reported History Additional Family Medical History / Comment(s): pt adopted no family history known Medications and Allergies Home Medications Medication Instructions Recorded Confirmed Type Cimetidine [Tagamet] 400 mg PO BID 05/26/14 09/04/16 History Metoprolol Tartrate [Lopressor] 25 mg PO BID 05/26/14 09/04/16 History Beclomethasone Dipropionate [Qvar 1 - 2 puff INHALATION RT-BID PRN 06/25/1506/10 History 80 mcg/puff] Calcium Carbonate/Vitamin D3 1 tab PO TID 06/25/15 09/04/16 History [Calcium 600 + Vit D Tablet] Cyanocobalamin [Vitamin B-12] 500 mcg PO DAILY 06/25/15 09/04/16 History Multivit with Calcium,Iron,Min 1 tab PO DAILY 06/25/15 09/04/16 History [Women's Daily Multivitamin] Denosumab [Prolia] 60 mg SQ Q180D 06/30/15 09/04/16 History Dexamethasone 4 mg PO BID 07/07/16 09/04/16 History Enalapril [Vasotec] 5 mg PO DAILY 07/12/16 09/04/16 History Anastrozole [Arimidex] 1 mg PO DAILY 09/04/16 09/04/16 History LORazepam [Ativan] 0.5 mg PO BID PRN 09/04/16 09/04/16 History Allergies Allergy/AdvReac Type Severity Reaction Status Date / Time ciprofloxacin HCl Allergy Itching Verified 09/04/16 13:13 [From Cipro] NSAIDS (Non-Steroidal Allergy Rash/Hives Verified 09/04/16 13:13 Anti-Inflamma aripiprazole [From Abilify] AdvReac sleepiness Verified 09/04/16 13:13 Penicillins AdvReac Nausea Verified 09/04/16 13:13 Physical Exam Vitals: Vital Signs Temp Pulse Pulse Resp BP Pulse Ox 09/06/16 07:00 97 F L 95 20 121/81 94 L 09/05/16 22:40 107 H 18 09/05/16 22:14 97.5 F L 107 H 18 127/86 90 L 09/05/16 19:43 100 09/05/16 19:28 100 09/05/16 14:44 97.8 F 109 H 18 107/56 92 L 09/05/16 12:00 102 H 16 107/76 90 L Intake and Output 09/05/16 09/06/16 09/06/16 22:59 06:59 14:59 Intake Total 760 800 Balance 760 800 Intake: IV 400 800 Sodium Chloride 0.9% 1, 400 800 000 ml @ 100 mls/hr IV . Q10H EDISON Rx#:[id number] Oral 360 Other: Voiding Method Bedside Commode Bedside Commode # Voids 1 1 Weight 85 kg - Constitutional General appearance: no acute distress - Respiratory Respiratory: bilateral: diminished, wheezing - Cardiovascular Rhythm: regular Heart sounds: normal: S1, S2 Results 09/05/16 06:35 09/06/16 07:32 Cardiac Enzymes 09/05/16 09/05/16 Range/Units 10:44 16:53 Troponin I 0.114 H* 0.115 H* (0.000-0.034) ng/mL Comprehensive Metabolic Panel 09/06/16 Range/Units 07:32 Sodium 141 (137-145) mmol/L Potassium 4.3 (3.5-5.1) mmol/L Chloride 109 H (98-107) mmol/L Carbon Dioxide 23 (22-30) mmol/L BUN 20 H (7-17) mg/dL Creatinine 0.80 (0.52-1.04) mg/dL Glucose 132 H (74-99) mg/dL Calcium 9.7 (8.4-10.2) mg/dL Current Medications Generic Name Dose Route Start Last Admin Trade Name Freq PRN Reason Stop Dose Admin Acetaminophen/Hydrocodone Bitart 1 each 09/04/16 17:25 09/05/16 06:56 [place] 7.5-325 PO 1 each Q6H PRN Administration Pain Albuterol Sulfate 2.5 mg 09/04/16 14:28 09/05/16 19:28 Ventolin Nebulized INHALATION 2.5 mg RT-Q4H PRN Administration Shortness Of Breath Or Wheezing Anastrozole 1 mg 09/05/16 09:00 09/06/16 08:30 Arimidex PO 1 mg DAILY EDISON Administration Azithromycin 500 mg 09/05/16 12:00 09/06/16 08:29 Zithromax PO 500 mg DAILY EDISON Administration Beclomethasone Dipropionate 2 puff 09/04/16 17:15 09/06/16 07:11 Qvar INHALATION 2 puff RT-BID PRN Administration copd Budesonide/Formoterol Fumarate 2 puff 09/05/16 20:00 09/06/16 07:10 Symbicort 160-4.5 Mcg Inhaler INHALATION 2 puff RT-BID EDISON Administration Dexamethasone 4 mg 09/04/16 21:00 09/06/16 08:30 Hexadrol PO 4 mg BID EDISON Administration Famotidine 20 mg 09/04/16 21:00 09/05/16 20:05 Pepcid PO 20 mg HS EDISON Administration Sodium Chloride 1,000 mls @ 100 mls/hr 09/04/16 14:30 09/06/16 01:38 Saline 0.9% IV 100 mls/hr .Q10H EDISON Administration Ceftriaxone Sodium 1,000 mg/ 50 mls @ 100 mls/hr 09/05/16 12:00 09/06/16 08: 29 Sodium Chloride IVPB 09/08/16 12:01 100 mls/hr Q24HR EDISON Administration Lorazepam 0.5 mg 09/04/16 17:15 09/06/16 08:29 Ativan PO 0.5 mg BID PRN Administration Anxiety Metoprolol Tartrate 25 mg 09/06/16 16:00 Lopressor PO TID EDISON Miscellaneous Information 1 each 09/04/16 14:28 Pneumonia Protocol Utilized PO ONCE PRN Per Protocol Miscellaneous Information 1 each 09/06/16 09:49 Rx Info: Iv Contrast Was Given MISCELLANE 09/08/16 09:49 DAILY PRN Per Protocol Intake and Output 09/05/16 09/06/16 09/06/16 22:59 06:59 14:59 Intake Total 760 800 Balance 760 800 Intake: IV 400 800 Sodium Chloride 0.9% 1, 400 800 000 ml @ 100 mls/hr IV . Q10H EDISON Rx#:[id number] Oral 360 Other: Voiding Method Bedside Commode Bedside Commode # Voids 1 1 Weight 85 kg 09/05/16 06:35 09/06/16 07:32 Assessment and Plan Plan: Assessment #1 breast cancer with metastasis to the brain #2 renal cell carcinoma #3 sinus tachycardia #4 mildly abnormal cardiac enzymes #5 COPD Plan #1 increase the dose of metoprolol to 25 mg by mouth 3 times a day #2 obtain an echocardiogram was Doppler #3 follow-up with the patient
--- NOTE | 2016-09-06 11:35 | ECHOF ---
Referral Reason:abnormal cardiac enzymes MEASUREMENTS -------- HEIGHT: 157.5 cm WEIGHT: 84.8 kg BP: 121/81 RVIDd: 2.9 cm (< 3.3) IVSd: 1.1 cm (0.6 - 1.1) LVIDd: 3.2 cm (3.9 - 5.3) LVPWd: 1.0 cm (0.6 - 1.1) IVSs: 1.5 cm LVIDs: 2.4 cm LVPWs: 1.6 cm LA Diam: 2.9 cm (2.7 - 3.8) LAESV Index (A-L): 15.47 ml/m Ao Diam: 3.7 cm (2.0 - 3.7) AV Cusp: 1.9 cm (1.5 - 2.6) MV EXCURSION: 13.666 mm (> 18.000) MV EF SLOPE: 35 mm/s (70 - 150) EPSS: 0.8 cm MV E Kimani: 0.74 m/s MV DecT: 237 ms MV A Kimani: 0.88 m/s MV E/A Ratio: 0.84 RAP: 5.00 mmHg RVSP: 32.43 mmHg FINDINGS -------- Sinus rhythm. This was a technically good study. The left ventricular size is normal. There is borderline concentric left ventricular hypertrophy. Overall left ventricular systolic function is normal with, an EF between 55 - 60 %. The right ventricle is normal in size and function. The left atrium is normal in size. Normal LA size by volume 22+/-6 ml/m2. The right atrium is normal in size. Aortic valve is trileaflet and is mildly thickened. Mild mitral annular calcification present. Mild tricuspid regurgitation present. Right ventricular systolic pressure is normal at < 35 mmHg. The pulmonic valve was not well visualized. The aortic root is dilated measuring 3.7cm. Normal inferior vena cava with normal inspiratory collapse consistent with estimated right atrial pressure of 5 mmHg. There is no pericardial effusion. CONCLUSIONS -------- 1. Sinus rhythm. 2. Mild mitral annular calcification present. 3. Mild tricuspid regurgitation present. 4. Right ventricular systolic pressure is normal at < 35 mmHg. 5. The pulmonic valve was not well visualized. 6. The aortic root is dilated measuring 3.7cm. 7. There is no pericardial effusion. 8. This was a technically good study. 9. The left ventricular size is normal. 10. There is borderline concentric left ventricular hypertrophy. 11. Overall left ventricular systolic function is normal with, an EF between 55 - 60 %. 12. The right ventricle is normal in size and function. 13. Normal LA size by volume 22+/-6 ml/m2. 14. The right atrium is normal in size. 15. Aortic valve is trileaflet and is mildly thickened. [employer] SUPERVISOR: Abigail Rose RDCS
--- NOTE | 2016-09-06 12:04 | US ---
EXAMINATION TYPE: US venous doppler duplex LE DATE OF EXAM: 09/06/2016 11:49 AM COMPARISON: NONE CLINICAL HISTORY: swelling. SIDE PERFORMED: bilateral VESSELS IMAGED: External Iliac Vein (EIV) Common Femoral Vein Deep Femoral Vein Greater Saphenous Vein * Femoral Vein Popliteal Vein Small Saphenous Vein * Proximal Calf Veins (* superficial vessels) TECHNOLOGIST IMPRESSION: left Greater Saphenous clot propagating into Common femoral Right Leg: Negative for DVT Left Leg: Left GSV clot propagating into CFV No popliteal fossa lesion is seen. IMPRESSION: This examination is positive for superficial thrombus in this greater saphenous vein on the left whic h is extending into the deep venous system of the common femoral vein.
--- NOTE | 2016-09-06 12:37 | CT ---
EXAMINATION TYPE: CT angio chest DATE OF EXAM: 09/06/2016 11:35 AM COMPARISON: Chest x-ray 05 September 2016 HISTORY: Shortness of breath, deep venous thrombosis CT DLP: 335.30 mGycm Automated exposure control for dose reduction was used. CONTRAST: CTA scan of the thorax is performed with IV Contrast, patient injected with 80 ml mL of Visipaque 320 , pulmonary embolism protocol. MIP images are created and reviewed. 3D reconstructed images are cre ated on an independent workstation and reviewed. FINDINGS: LUNGS: Abnormal attenuation present in the right upper lobe peripherally has increased in the interva l and may be due to some local airspace disease, difficult to exclude aspiration, some patchy density also present at the posterior right lung base, right lower lobe. There may be underlying pulmonary i nfarction. AORTA: Rib the aorta is dilated at 3.9 cm, a sending aorta 4.2 cm. MEDIASTINUM: There is extensive abnormal luminal filling defect involving the left and right pulmonar y arteries, pulmonary artery, occlusion of the segmental branches to the right lower lobe, partial oc clusion to the right middle lobe as well as segmental filling defects involving the left lower lobe a re noted as well as lingula, segmental left upper lobe branches. Mediastinal and hilar adenopathy yovany nges are suspected. OTHER: Edematous change in the left axilla. There is a large hiatal hernia present. IMPRESSION: EXTENSIVE PULMONARY EMBOLISM DESCRIBED, THERE IS LIKELY ASSOCIATED PULMONARY INFARCTION, DIFFICULT TO EXCLUDE ASPIRATION PNEUMONIA. REPORT RELATED TO ONCOLOGY NURSE AT THE TIME OF INTERPRETATION OF T HIS EXAM AT 1235 HOURS 06 SEPTEMBER 2016.
[2016-09-06] MEDS: RIVAROXABAN 15 MG TAB PO SCH ×2 (13:31→16:56)
[2016-09-06] MEDS: HYDROcodone/APAP 7.5-325MG 1 EACH TAB PO PRN (13:47)
--- NOTE | 2016-09-06 14:06 | CDI ---
In responding to this query, please exercise your independent professional judgment. The [facility] Coding Staff and Clinical Documentation Specialists appreciate your assistance in clarifying documentation, maintaining compliance with coding guidelines, accurately documenting patients condition and capturing severity of illness. The fact that a question is asked does not imply that any particular answer is desired or expected. Communication forms are a method of clarifying documentation and are not made part of the Legal Health Record. Thank you in advance for your clarification. Last Revision, September 2015 Selene Patel [address] [facility] [place] [address] Documentation Clarification Form Date: 09/06/2016 1:48:00 PM From: Marlene Douglas Admit Date: 09/04/2016 3:12:00 PM Patient Name: Shira Cornell Visit Number: [id number] Discharge Date: Dr. Sean Umana/Rica DAVILA Asthma is documented in the consult and progress notes. Patient history/risk factors: COPD, Asthma, Diabetes Mellitus, Hyperlipidemia, Hypertension, Clinical Indicators: Complains of increased shortness of breath, mild cough, Wheezes with decreased breath sounds Chest x-ray: No ac cardiopulmonary disease, clearing of the mild atelectasis at the lung bases. Vital Signs: 127/70 84 22 97.4 91 % Ra 95 % 10 /L Aerosol Mask Other Clinical Indicators: Lungs per attending: Significantly limited air entry to bilateral lung anderson with minimal expiratory wheezing. Treatment: Albuterol Duonebs Symbicort Inhaler Vibromycin PO Solu-Medrol IV Monitor Labs/BS In your professional opinion, can you please further specify Asthma if known? With Acute Exacerbation Status asthmaticus Acute lower respiratory infection COPD (specify with or without exacerbation) Chronic obstructive bronchitis Other, please specify Unable to determine Severity Mild intermittent Mild persistent Moderate persistent Severe persistent Other, please specify ____ Unable to determine Form or Type Cough variant Childhood Exercise induced bronchospasm Extrinsic allergic Idiosyncratic Intrinsic nonallergic Late-onset Mixed Other, please specify Unable to determine Please document in your progress notes and discharge summary in order to capture severity of illness and risk of mortality. Include clinical findings that support your diagnosis. FYI: Press F11 to launch patient chart. Place X here if this finding has no clinical significance, is not applicable or if you are not able to provide any additional documentation. MTDD
--- NOTE | 2016-09-06 15:02 | PN ---
Patient is admitted with right middle lobe pneumonia. Patient continues to complain of chest pain with clear lungs because of which patient has musculoskeletal chest pain because of which there is a concern of pulmonary embolism. Patient is getting a CT angio of the chest. Patient has only unilateral kidney, although this test is definitely needed because of which will monitor the kidney function. Will go ahead and get the test done. REVIEW OF SYSTEMS: CARDIOVASCULAR: No chest pain, no orthopnea, no PND, no palpitations. PULMONARY: As described above. denied any shortness of breath. No cough or hemoptysis. GASTROINTESTINAL: No diarrhea, nausea or vomiting. No abdominal pain. Normoactive bowel sounds. NEUROLOGIC: No headaches, no weakness, no numbness. Medications were reviewed. PHYSICAL EXAMINATION: Temperature 97.0, pulse of 95, respiratory rate of 20, blood pressure is 121/81, saturating at 94% on 2 L of O2 by nasal cannula. Although on paper she appears to be improved, but she was getting quite short of breath upon just ambulation and regular activities. GENERAL: The patient is alert and oriented x3, not in any acute distress. Well developed, well nourished. HEENT: Pupils are round and equally reacting to light. EOMI. No scleral icterus. No conjunctival pallor. Normocephalic, atraumatic. No pharyngeal erythema. No thyromegaly. CARDIOVASCULAR: S1 and S2 present. No murmurs, rubs, or gallops. PULMONARY: Chest is clear to auscultation, no wheezing or crackles. ABDOMEN: Soft, nontender, nondistended, normoactive bowel sounds. No palpable organomegaly. MUSCULOSKELETAL: No joint swelling or deformity. EXTREMITIES: No cyanosis, clubbing, or pedal edema. NEUROLOGICAL: Gross neurological examination did not reveal any focal deficits. SKIN: No rashes. Patient appears to be in mild respiratory distress as she just came from the bathroom. LABORATORY DATA: Basic metabolic profile is essentially within normal limits. ASSESSMENT AND PLAN: 1. Sepsis secondary to right middle lobe pneumonia and acute hypoxic respiratory failure secondary to that. Continue with Zosyn and azithromycin. 2. Continued acute hypoxemia without any chronic obstructive pulmonary disease exacerbation, obtaining a CT for pulmonary embolism to rule out pulmonary embolism. 3. Gastroesophageal reflux disease. 4. Breast cancer, metastatic disease to brain. Patient is presently on Decadron. 5. Acute kidney injury which improved with IV fluid resuscitation. 6. Tachycardia due to intravascular volume depletion, which improved and metoprolol dose was increased. Breast cancer for which patient is on anastrozole and Prolia, which will be continued.
--- NOTE | 2016-09-06 17:47 | P.PN ---
Subjective Principal diagnosis: left sided weakness Pt seen today in follow up, her right leg is stronger, her RUE is still weak. She continues to be SOB with pleuritic chest pain. She denies fever, nausea, dysuria, diarrhea or constipation, no other pain to report. Objective - Vital Signs Vital signs: Vital Signs Temp 96.5 F L 09/06/16 15:00 Pulse 98 09/06/16 15:00 Resp 20 09/06/16 15:00 BP 142/84 09/06/16 15:00 Pulse Ox 95 09/06/16 15:00 Intake & Output 09/05/16 09/06/16 09/06/16 18:59 06:59 18:59 Intake Total 1560 750 Balance 1560 750 Weight 84.8 kg 85 kg 85 kg Intake: IV 1200 700 Sodium Chloride 0.9% 1, 1200 700 000 ml @ 100 mls/hr IV . Q10H [facility] Rx#:[id number] Intake, IV Titration 50 Amount cefTRIAXone 1,000 mg In 50 Sodium Chloride 0.9% 50 ml @ 100 mls/hr IVPB Q24HR [facility] Rx#:[id number] Oral 360 Other: Voiding Method Bedside Commode Bedside Commode Bedside Commode # Voids 1 1 2 - Constitutional General appearance: Present: cooperative, mild distress, obese - EENT Eyes: Present: anicteric sclerae ENT: Present: normal oropharynx - Respiratory Respiratory: bilateral: diminished (tight) - Cardiovascular Heart sounds: normal: S1, S2 - Gastrointestinal General gastrointestinal: Present: normal bowel sounds, soft. Absent: absent bowel sounds, decreased bowel sounds, distended, hepatomegaly, hyperactive bowel sounds, organomegaly, rigid, scaphoid, splenomegaly, tenderness, umbilical hernia, ventral hernia - Neurologic Neurologic Comment(s): RUE weakness, BLE strength nearly equal, slight right leg deficit - Psychiatric Psychiatric: Present: A&O x's 3, appropriate affect, intact judgment & insight - Labs CBC & Chem 7: 09/05/16 06:35 09/06/16 07:32 Labs: Abnormal Lab Results - Last 24 Hours (Table) 09/05/16 09/06/16 Range/Units 16:53 07:32 Chloride 109 H (98-107) mmol/L BUN 20 H (7-17) mg/dL Glucose 132 H (74-99) mg/dL Troponin I 0.115 H* (0.000-0.034) ng/mL Microbiology - Last 24 Hours (Table) 09/05/16 08:30 Gram Stain - Preliminary Sputum 09/04/16 16:52 Blood Culture - Preliminary Blood No Growth after 24 hours 09/04/16 16:07 Blood Culture - Preliminary Blood No Growth after 24 hours Assessment and Plan (1) Breast cancer Narrative/Plan: Pt has just recently completed WBRT for recurrent metastatic disease. Her steroids have been resumed with significant improvement in her neurological symptoms. Will taper steroids over a longer period of time and monitor closely for symptoms. She will f/u with Dr. Velez for further plans for treatment. Status: Chronic (2) SOB (shortness of breath) Narrative/Plan: CTA chest ordered for SOB, pleuritic chest pain BLE doppler requested for complete work up Status: Acute Plan: CTA and doppler reports available at time of documentation, anticoagulation has already been started on pt, will review results with her in AM.
[2016-09-06] MEDS: FAMOTIDINE 20 MG TAB PO SCH (21:42)
[2016-09-07] MEDS: SYMBICORT 160-4.5 MCG INHALER INHALATION SCH ×2 (07:58→19:32)
[2016-09-07] MEDS: BECLOMETHASONE DIP 80 MCG/PUFF INHALER INHALATION PRN (07:58)
[2016-09-07] MEDS: DEXAMETHASONE 4 MG TAB PO SCH ×2 (09:59→20:49)
[2016-09-07] MEDS: RIVAROXABAN 15 MG TAB PO SCH ×2 (09:59→17:15)
[2016-09-07] MEDS: LORazepam 0.5 MG TAB PO PRN (09:59)
[2016-09-07] MEDS: ANASTROZOLE 1 MG TAB PO SCH (10:00)
[2016-09-07] MEDS: METOPROLOL TARTRATE 25 MG TAB PO SCH ×3 (10:00→20:49)
[2016-09-07] MEDS: AZITHROMYCIN 500 MG TAB PO SCH (10:07)
--- NOTE | 2016-09-07 12:28 | P.PN ---
Subjective Principal diagnosis: Patient noted have extensive pulmonary embolism with pulmonary infarction. Patient states she is comfortable at this time Objective - Vital Signs Vital signs: Vital Signs Temp 98.1 F 09/07/16 07:00 Pulse 86 09/07/16 07:00 Resp 20 09/07/16 07:00 BP 118/74 09/07/16 07:00 Pulse Ox 93 L 09/07/16 07:00 Intake & Output 09/06/16 09/07/16 09/07/16 18:59 06:59 18:59 Intake Total 750 1560 Balance 750 1560 Weight 85 kg Intake: IV 700 1200 Sodium Chloride 0.9% 1, 700 1200 000 ml @ 100 mls/hr IV . Q10H [facility] Rx#:[id number] Intake, IV Titration 50 Amount cefTRIAXone 1,000 mg In 50 Sodium Chloride 0.9% 50 ml @ 100 mls/hr IVPB Q24HR [facility] Rx#:[id number] Oral 360 Other: Voiding Method Bedside Commode Bedside Commode # Voids 2 1 - Constitutional General appearance: Present: mild distress - EENT Eyes: Present: PERRLA Ears: bilateral: normal - Neck Neck: Present: normal ROM - Respiratory Respiratory: bilateral: diminished - Cardiovascular Rhythm: regular - Integumentary Integumentary: Present: normal - Neurologic Neurologic: Present: CNII-XII intact - Musculoskeletal Musculoskeletal: Present: generalized weakness - Psychiatric Psychiatric: Present: A&O x's 3, appropriate affect, intact judgment & insight - Labs CBC & Chem 7: 09/05/16 06:35 09/06/16 07:32 Labs: Microbiology - Last 24 Hours (Table) 09/05/16 08:30 Gram Stain - Final Sputum Sputum Culture - Final 09/04/16 16:52 Blood Culture - Preliminary Blood No Growth after 48 hours 09/04/16 16:07 Blood Culture - Preliminary Blood No Growth after 48 hours - Imaging and Cardiology Chest x-ray: report reviewed CT scan - chest: report reviewed Assessment and Plan Plan: Assessment Sepsis secondary to middle lobe pneumonia and acute hypoxic respiratory failure secondary to pneumonia Hypoxia acute Pulmonary embolism extensive with pulmonary infarction GERD Breast cancer metastatic disease to brain Acute kidney injury Tachycardia secondary to intervascular volume depletion Plan continue consultation with Dr. Velez Continue consultation with cardiology Pulmonology consulted regarding PE
--- NOTE | 2016-09-07 12:42 | P.PN ---
Progress Note - Text This is a pleasant 70-year-old female patient who sees Dr. Umana as an outpatient with a past medical history significant for hypertension who was diagnosed with breast cancer with metastasis to the brain as well as renal cell carcinoma was admitted to the hospital with shortness of breath. The patient was diagnosed with COPD exacerbation as well as with community-acquired pneumonia. The patient has right sided weakness secondary to the metastasis to the brain and she is on steroids as an outpatient. We get involved in the care of the patient because her cardiac enzymes were checked and came in to be slightly abnormal. The patient also describes atypical chest discomfort. She is not aware of any prior history of coronary artery disease or coronary artery revascularization. The patient was slightly tachycardic yesterday and she was in sinus tachycardia. She was started on metoprolol with improvement in the heart rate. She underwent an echocardiogram which showed normal LV function without significant valvular abnormalities. She underwent a CTA of the chest which showed finding consistent was PE. Anticoagulation was initiated using Xarelto. From the cardiovascular standpoint overview, I would continue the metoprolol. We'll continue anticoagulation using Xarelto.
[2016-09-07] MEDS: DOCUSATE 100 MG CAP PO SCH (13:40)
[2016-09-07] MEDS: SODIUM CHLORIDE 0.9% 1,000 ML IV SCH ×2 (13:40→20:50)
--- NOTE | 2016-09-07 15:25 | P.CNPUL ---
History of Present Illness Consult date: 09/07/16 Reason for consult: dyspnea, pulmonary embolism, DVT Chief complaint: Weakness History of present illness: This is a 70-year-old white female who presented to the emergency department on September 04 complaining of weakness and not be able get up off the commode. She has a history of breast cancer with radiation to the brain because of metastasis. The patient appeared apparently presented with progressive weakness and was really unable to do much for herself at home. Her had to help her. For that reason she was evaluated in admitted. In addition, she apparently had some shortness of breath and an elevated heart rate was subsequently evaluated for pulmonary embolism. She was found to have extensive PE on CT angiogram and a left DVT. Review of Systems A 12 point review of systems is positive for primarily weakness but also positive for shortness of breath and tachycardia. She is a bit better today but still having significant weakness and some shortness of breath particularly when she exerts herself. The rest of the 12 point review of system is unremarkable. Past Medical History Past Medical History: Asthma, Cancer, COPD, GERD/Reflux, Hypertension, Osteoarthritis (OA), Renal Disease Additional Past Medical History / Comment(s): . History of Any Multi-Drug Resistant Organisms: None Reported Past Surgical History: Appendectomy, Cholecystectomy, Orthopedic Surgery Additional Past Surgical History / Comment(s): RT mastectomy, lymph node removal , R wrist fx repair, right nephrectomy, Past Anesthesia/Blood Transfusion Reactions: No Reported Reaction Past Psychological History: Depression Smoking Status: Former smoker Past Alcohol Use History: Occasional Additional Past Alcohol Use History / Comment(s): quit smoking 1 month, smoked 1 /2-1ppd since mid Past Drug Use History: None Reported - Past Family History Mother Family Medical History: No Reported History Additional Family Medical History / Comment(s): pt adopted no family history known Medications and Allergies Home Medications Medication Instructions Recorded Confirmed Type Cimetidine [Tagamet] 400 mg PO BID 05/26/14 09/04/16 History Metoprolol Tartrate [Lopressor] 25 mg PO BID 05/26/14 09/04/16 History Beclomethasone Dipropionate [Qvar 1 - 2 puff INHALATION RT-BID PRN 06/25/1506/10 History 80 mcg/puff] Calcium Carbonate/Vitamin D3 1 tab PO TID 06/25/15 09/04/16 History [Calcium 600 + Vit D Tablet] Cyanocobalamin [Vitamin B-12] 500 mcg PO DAILY 06/25/15 09/04/16 History Multivit with Calcium,Iron,Min 1 tab PO DAILY 06/25/15 09/04/16 History [Women's Daily Multivitamin] Denosumab [Prolia] 60 mg SQ Q180D 06/30/15 09/04/16 History Dexamethasone 4 mg PO BID 07/07/16 09/04/16 History Enalapril [Vasotec] 5 mg PO DAILY 07/12/16 09/04/16 History Anastrozole [Arimidex] 1 mg PO DAILY 09/04/16 09/04/16 History LORazepam [Ativan] 0.5 mg PO BID PRN 09/04/16 09/04/16 History Allergies Allergy/AdvReac Type Severity Reaction Status Date / Time ciprofloxacin HCl Allergy Itching Verified 09/04/16 13:13 [From Cipro] NSAIDS (Non-Steroidal Allergy Rash/Hives Verified 09/04/16 13:13 Anti-Inflamma aripiprazole [From Abilify] AdvReac sleepiness Verified 09/04/16 13:13 Penicillins AdvReac Nausea Verified 09/04/16 13:13 Physical Exam Osteopathic Statement: *. No significant issues noted on an osteopathic structural exam other than those noted in the History and Physical/Consult. Vitals: Vital Signs Temp Pulse Resp BP Pulse Ox 09/07/16 14:21 97 F L 94 18 118/73 09/07/16 07:00 98.1 F 86 20 118/74 93 L 09/07/16 00:00 83 09/06/16 22:55 97.9 F 83 18 125/67 94 L Intake and Output 09/07/16 09/07/16 09/07/16 06:59 14:59 22:59 Intake Total 800 Balance 800 Intake: IV 800 Sodium Chloride 0.9% 1, 800 000 ml @ 100 mls/hr IV . Q10H [facility] Rx#:[id number] Other: Voiding Method Bedside Commode Bedside Commode # Voids 2 No acute distress, oriented 3. HEENT examination is grossly unremarkable. Mucous membranes are moist. No oral lesions. Supple. Full range of motion. No adenopathy or thyromegaly. Cardiovascular examination reveals regular rhythm rate. S1-S2 normal. Lungs reveal few scattered rhonchi. No wheezes. Breath sounds are diminished. No crackles. Abdomen soft bowel sounds are heard. Extremities are intact. Results - Laboratory Findings CBC and BMP: 09/05/16 06:35 09/06/16 07:32 PT/INR, D-dimer PT 10.1 sec (9.0-12.0) 09/04/16 12:15 INR 1.0 (<1.1) 09/04/16 12:15 Abnormal lab findings: Abnormal Labs 09/05/16 09/05/16 09/05/16 06:35 06:35 10:44 Plt Count 103 L Chloride BUN 24 H Glucose 141 H AST 41 H Troponin I 0.114 H* Albumin 3.4 L TSH 09/05/16 09/05/16 09/06/16 10:44 16:53 07:32 Plt Count Chloride 109 H BUN 20 H Glucose 132 H AST Troponin I 0.115 H* Albumin TSH 0.139 L - Diagnostic Findings Chest x-ray: image reviewed CT scan - chest: image reviewed U/S of Legs: image reviewed (X-rays blood work in medications are all reviewed.) Assessment and Plan (1) Pulmonary embolism and infarction Status: Acute (2) DVT (deep venous thrombosis) Status: Acute (3) SOB (shortness of breath) Status: Acute (4) Weakness Status: Acute (5) Breast cancer Status: Chronic Plan: Plan dated 09/07/2016 The patient has been diagnosed as having pulmonary embolism a left-sided DVT. Her clot burden is extensive. The patient will be treated with IV heparin and then oral anticoagulants. Because of her history of metastatic breast cancer, she should have lifelong treatment. Additional recommendations and suggestions are forthcoming. Prognosis is poor. Time with Patient: Greater than 30
[2016-09-07] MEDS: FAMOTIDINE 20 MG TAB PO SCH (20:49)
[2016-09-07] MEDS: HYDROcodone/APAP 7.5-325MG 1 EACH TAB PO PRN (20:51)
[2016-09-07 22:01] VITALS: RESP 20
[2016-09-08] MEDS: SYMBICORT 160-4.5 MCG INHALER INHALATION SCH ×2 (07:44→20:41)
[2016-09-08] MEDS: ANASTROZOLE 1 MG TAB PO SCH (08:46)
[2016-09-08] MEDS: AZITHROMYCIN 500 MG TAB PO SCH (08:46)
[2016-09-08] MEDS: METOPROLOL TARTRATE 25 MG TAB PO SCH ×3 (08:46→21:53)
[2016-09-08] MEDS: DEXAMETHASONE 4 MG TAB PO SCH ×2 (08:46→20:17)
[2016-09-08] MEDS: DOCUSATE 100 MG CAP PO SCH (08:46)
[2016-09-08] MEDS: SODIUM CHLORIDE 0.9% 1,000 ML IV SCH ×2 (08:47→18:23)
--- NOTE | 2016-09-08 10:49 | P.PN ---
Progress Note - Text This is a pleasant 70-year-old female patient who sees Dr. Umana as an outpatient with a past medical history significant for hypertension who was diagnosed with breast cancer with metastasis to the brain as well as renal cell carcinoma was admitted to the hospital with shortness of breath, and was diagnosed with PE. The patient has right sided weakness secondary to the metastasis to the brain and she is on steroids as an outpatient. We get involved in the care of the patient because her cardiac enzymes were checked and came in to be slightly abnormal. The patient was slightly tachycardic yesterday and she was in sinus tachycardia. She was started on metoprolol with improvement in the heart rate. She underwent an echocardiogram which showed normal LV function without significant valvular abnormalities. She underwent a CTA of the chest which showed finding consistent was PE. Anticoagulation was initiated using Xarelto. From the cardiovascular standpoint overview, I would continue the metoprolol. We'll continue anticoagulation using Xarelto. We will follow-up with the patient on when necessary case.
[2016-09-08] MEDS: LORazepam 0.5 MG TAB PO PRN (11:56)
--- NOTE | 2016-09-08 12:27 | P.PN ---
Subjective Patient resting comfortably in bed denies chest pain. Shortness of breath develops with ambulation. And pulmonary consultation regarding of pulmonary embolism Objective - Vital Signs Vital signs: Vital Signs Temp 97.9 F 09/08/16 07:00 Pulse 66 09/08/16 07:00 Resp 20 09/08/16 08:00 BP 141/82 09/08/16 07:00 Pulse Ox 95 09/08/16 07:00 Intake & Output 09/07/16 09/08/16 09/08/16 18:59 06:59 18:59 Intake Total 1200 75 Balance 1200 75 Intake: IV 1200 Sodium Chloride 0.9% 1, 1200 000 ml @ 100 mls/hr IV . Q10H [facility] Rx#:[id number] Oral 75 Other: Voiding Method Bedside Commode Bedside Commode Bedside Commode # Voids 2 1 - Constitutional General appearance: Present: obese - EENT Eyes: Present: PERRLA Ears: bilateral: normal - Neck Neck: Present: normal ROM - Respiratory Respiratory: bilateral: diminished - Cardiovascular Rhythm: regular - Gastrointestinal General gastrointestinal: Present: soft - Integumentary Integumentary: Present: normal - Neurologic Neurologic: Present: CNII-XII intact - Musculoskeletal Musculoskeletal: Present: generalized weakness - Psychiatric Psychiatric: Present: A&O x's 3, appropriate affect, intact judgment & insight - Labs CBC & Chem 7: 09/05/16 06:35 09/06/16 07:32 Labs: Microbiology - Last 24 Hours (Table) 09/04/16 16:52 Blood Culture - Preliminary Blood No Growth after 72 hours 09/04/16 16:07 Blood Culture - Preliminary Blood No Growth after 72 hours 09/05/16 08:30 Gram Stain - Final Sputum Sputum Culture - Final Assessment and Plan Plan: Assessment Sepsis secondary to middle lobe pneumonia with acute hypoxic respiratory failure Pulmonary embolism extensive with pulmonary infarction GERD Breast cancer with metastatic disease to the brain Acute kidney injury Tachycardia secondary to volume depletion Plan Continue consultation with Dr. Velez Continue consultation with cardiology Continue consultation with pulmonology regarding PE
--- NOTE | 2016-09-08 13:00 | P.PN ---
Subjective This is a very pleasant 70-year-old female patient with a history of breast cancer with metastasis to the brain. She is recently been undergoing treatment. She presented here on 09/04/2016 with complaints of progressive weakness and inability to stand. She also had complaints of shortness of breath at the time. She was found to have a DVT of the left lower extremity as well as extensive bilateral pulmonary emboli along with associated pulmonary infarction. She was seen yesterday in consultation by Dr. Umana. She is seen again today in the oncology for follow-up. She is awake and alert in no acute distress. She denies any significant shortness of breath, cough or congestion. She is maintaining good O2 saturations in the mid 90s on 2 L/m per nasal cannula. She has been initiated on Xarelto. Objective - Vital Signs Vital signs: Vital Signs Temp 97.9 F 09/08/16 07:00 Pulse 66 09/08/16 07:00 Resp 20 09/08/16 08:00 BP 141/82 09/08/16 07:00 Pulse Ox 95 09/08/16 07:00 Intake & Output 09/07/16 09/08/16 09/08/16 18:59 06:59 18:59 Intake Total 1200 75 Balance 1200 75 Intake: IV 1200 Sodium Chloride 0.9% 1, 1200 000 ml @ 100 mls/hr IV . Q10H [facility] Rx#:[id number] Oral 75 Other: Voiding Method Bedside Commode Bedside Commode Bedside Commode # Voids 2 1 - Exam GENERAL EXAM: Alert, active, comfortable in no apparent distress. HEAD: Normocephalic. EYES: Normal reaction of pupils, equal size. NOSE: Clear with pink turbinates. THROAT: No erythema or exudates. NECK: No masses, no JVD. CHEST: No chest wall deformity. LUNGS: Equal air entry with no crackles, wheeze, rhonchi or dullness. CVS: S1 and S2 normal with no audible murmurs, regular rhythm. ABDOMEN: No hepatosplenomegaly, normal bowel sounds, no guarding or rigidity. SPINE: No scoliosis or deformity SKIN: No rashes CENTRAL NERVOUS SYSTEM: No focal deficits, tone is normal in all 4 extremities. Extremities: There is no significant peripheral edema. No clubbing, no cyanosis. Peripheral pulses are intact. - Labs CBC & Chem 7: 09/05/16 06:35 09/06/16 07:32 Labs: Microbiology - Last 24 Hours (Table) 09/04/16 16:52 Blood Culture - Preliminary Blood No Growth after 72 hours 09/04/16 16:07 Blood Culture - Preliminary Blood No Growth after 72 hours 09/05/16 08:30 Gram Stain - Final Sputum Sputum Culture - Final Assessment and Plan Plan: Impression: #1 Acute pulmonary embolism with extensive clot burden suspect secondary to breast cancer history with metastasis to the brain. #2 Acute left lower extremity DVT. #3 Progressive weakness secondary to above. #4 Hypertension. #5 Osteoarthritis. #6 History of asthma. #7 Chronic obstructive pulmonary disease. #8 Chronic tobacco dependence for approximately 40 years. Quit approximately 1 month ago. Plan: The patient was seen and evaluated by Dr. Umana. He has recommended lifelong anticoagulation due to her metastatic cancer and significant clot burden. She has been initiated on Xarelto. We will continue with her current pulmonary medications including Symbicort and bronchodilators. She remains on empiric antibiotics in the form of azithromycin. We will continue to follow and make further recommendations based on her clinical status.
[2016-09-08] MEDS: RIVAROXABAN 15 MG TAB PO SCH (17:16)
--- NOTE | 2016-09-08 18:48 | P.PN ---
Subjective Principal diagnosis: Right sided weakness-incorrectly documented as left-sided weakness Patient seen today in follow-up. Patient is able to raise her right arm above her head independently but numbness and tingling persists, she does drop any items she picks up if she does not focus, she does notice increase neuropathic type pain, this fluctuates. Patient's right lower extremity strength is significantly improved, she still has weak plantar flexion, patient is not having numbness and tingling in the leg. Patient's right face is numb but she denies difficulty swallowing, coughing after ingesting food or fluids. Patient denies any incontinence of stool or urine. Patient has not had any fevers, no taste but she continues to eat, no nausea or vomiting. Patient states she has been working with physical therapy, she was in the shower today and has been up to the bedside commode multiple times Objective - Vital Signs Vital signs: Vital Signs Temp 98.3 F 09/08/16 15:58 Pulse 84 09/08/16 15:58 Resp 20 09/08/16 16:00 BP 112/58 09/08/16 15:58 Pulse Ox 94 L 09/08/16 15:58 Intake & Output 09/07/16 09/08/16 09/08/16 18:59 06:59 18:59 Intake Total 1200 875 Balance 1200 875 Intake: IV 1200 800 Sodium Chloride 0.9% 1, 1200 800 000 ml @ 100 mls/hr IV . Q10H [facility] Rx#:[id number] Oral 75 Other: Voiding Method Bedside Commode Bedside Commode Bedside Commode # Voids 2 1 4 - Constitutional Constitutional Comment(s): Treviño facies General appearance: Present: cooperative, no acute distress, obese - EENT Eyes: Present: EOMI, normal appearance ENT: Present: normal oropharynx - Respiratory Respiratory: bilateral: CTA - Cardiovascular Heart sounds: normal: S1, S2 - Peripheral edema leg Peripheral Edema: bilateral: Trace - Gastrointestinal General gastrointestinal: Present: normal bowel sounds, soft. Absent: absent bowel sounds, decreased bowel sounds, distended, hepatomegaly, hyperactive bowel sounds, organomegaly, rigid, scaphoid, splenomegaly, tenderness, umbilical hernia, ventral hernia - Musculoskeletal Musculoskeletal: Present: right sided weakness - Psychiatric Psychiatric: Present: A&O x's 3, appropriate affect, intact judgment & insight - Labs CBC & Chem 7: 09/05/16 06:35 09/06/16 07:32 Labs: Microbiology - Last 24 Hours (Table) 09/04/16 16:07 Blood Culture - Preliminary Blood No Growth after 96 hours 09/04/16 16:52 Blood Culture - Preliminary Blood No Growth after 72 hours Assessment and Plan (1) Breast cancer Narrative/Plan: Pt has just recently completed WBRT for recurrent metastatic disease. Her steroids have been resumed with significant improvement in her neurological symptoms. We'll continue steroids at this time. Patient states that Dr. Velez wanted to follow-up with her 3 weeks after completion of whole brain radiation. Will continue with this plan of care. Plans for chemotherapy based on Dr. Velez's evaluation of the patient at that time Status: Chronic (2) SOB (shortness of breath) Narrative/Plan: Patient has been diagnosed with DVT and pulmonary embolism. Patient is started on anticoagulation. Shortness of breath is improved. Pulmonary is following. Patient was able to ambulate today without O2. Status: Acute (3) Metastasis to brain Narrative/Plan: Patient is status post whole brain radiation completed about 6 days ago. Patient neurological symptoms did return when the steroids were being tapered. Steroids have been increased with improvement in neurological symptoms. Patient will continue on steroids at this time with a very slow taper over probably about the next month. Status: Acute (4) Right sided weakness Narrative/Plan: Secondary to brain metastases. Patient is going to participate in rehabilitation for a few weeks which was encouraged. Patient is doing much better with the increase in steroids on admission. As stated above steroids will be tapered over the next 4 weeks based on symptoms and response. Status: Acute
[2016-09-08] MEDS: FAMOTIDINE 20 MG TAB PO SCH (20:17)
[2016-09-08] MEDS: HYDROcodone/APAP 7.5-325MG 1 EACH TAB PO PRN (20:18)
[2016-09-09] MEDS: SODIUM CHLORIDE 0.9% 1,000 ML IV SCH (02:04)
[2016-09-09] MEDS: SYMBICORT 160-4.5 MCG INHALER INHALATION SCH (07:39)
[2016-09-09 07:42] VITALS: BP 129/77; PULSE 74; TEMP 97.6
[2016-09-09] MEDS: DOCUSATE 100 MG CAP PO SCH (07:50)
[2016-09-09] MEDS: AZITHROMYCIN 500 MG TAB PO SCH (07:50)
[2016-09-09] MEDS: ANASTROZOLE 1 MG TAB PO SCH (07:50)
[2016-09-09] MEDS: RIVAROXABAN 15 MG TAB PO SCH (07:50)
[2016-09-09] MEDS: METOPROLOL TARTRATE 25 MG TAB PO SCH (07:50)
[2016-09-09] MEDS: DEXAMETHASONE 4 MG TAB PO SCH (07:50)
--- NOTE | 2016-09-09 13:02 | DS ---
DATE OF ADMISSION: 09/04/2016 DATE OF DISCHARGE: FINAL DIAGNOSES: 1. Acute pulmonary embolism with acute extensive pulmonary infarction. 2. Admitted on pneumonia with possible sepsis and acute hypoxic respiratory failure. 3. Acute deep venous thrombosis of the leg. 4. Gastroesophageal reflux disease. 5. History of breast cancer with METs to the brain. 6. Acute kidney injury. 7. Tachycardia secondary to volume depletion. 8. Troponin 0.115 indeterminate. 9. Increased creatinine with acute mild acute renal, present on admission with possible prerenal factors. 10. Increased AST, ALT, present on admission, improved. 11. Thrombocytopenia, possibly secondary to malignancy. 12. Chronic obstructive pulmonary disease, without any acute exacerbation. 13. Gastroesophageal reflux disease. 14. NO CODE, NO CPR, NO VENT. DISCHARGE DISPOSITION: The patient will be discharged in stable condition with guarded prognosis. Total time taken 35 minutes. HISTORY OF PRESENT ILLNESS: This 70-year-old woman with a past medical history of multiple medical problems being followed by Dr. Ronnell Koo in the outpatient setting was admitted with features of pulmonary embolism infarction, DVT, and as well as shortness of breath, possible pneumonia and sepsis. The patient treated with anticoagulation and patient improved significantly. Multiple consultants including Dr. Umana, Dr. De La Cruz, Dr. Ceja saw the patient's. Care was coordinated. The patient improved significantly. On exam, vital signs are stable. CARDIOVASCULAR SYSTEM: S1, S2 muffled. RESPIRATORY: A few scattered rhonchi and crackles. ABDOMEN: Soft, nontender. So the patient will be transferred to [facility] on the [address] in a stable condition with guarded prognosis. DISCHARGE ADVICE AND MEDICATIONS: 1. Diet is cardiac. 2. Activity limited until follow-up. 3. Follow up with Dr. Dueñas at [facility] in 2 to 3 days. 4. Follow up with Dr. Ronnell Koo 2 to 3 days. 5. Follow-up with Dr. Velez as recommended. 6. Medications are as before: albuterol 2.5 q.i.d. and p.r.n. 7. Arimidex 1 mg p.o. daily. 8. Zithromax 500 mg p.o. daily for 5 days. 9. Q-Brennon 1 to 2 puffs q.i.d. p.r.n. 10. Tagamet 400 mg p.o. b.i.d. 11. Vitamin B12 500 mcg p.o. daily. 12. Prolia 60 mg subcu every 180 days. 13. Dexamethasone 4 mg p.o. b.i.d. for 10 days, 4 mg milligrams daily for 10 days. 2 mg daily for 10 days and 1 mg daily for 10 days and then discontinue. 14. Colace 100 mg p.o. daily. Hold if the patient has diarrhea. 15. Pepcid 20 mg at bedtime. 16. [place] 7.5 q.6 p.r.n. 17. Ativan 0.5 mg p.o. b.i.d. p.r.n. for anxiety. 18. Lopressor 25 mg p.o. t.i.d. 19. Multivitamins 1 p.o. daily. 20. Xarelto 15 mg p.o. b.i.d. with meals for now and follow-up in the outpatient setting, 15 for 3 weeks and then 20 mg p.o. daily. 21. CBC, BMP in [address] Dueñas. 22. Follow up with Dr. Ronnell Koo after discharge from [facility].
== END 2016-09-09 12:55 | disposition home or self-care (01) | DRG 871 ==
LOC: EC 11:28 → EEVIPCON 11:28 → 6SEL 14:28 → 5ONC 09-05 10:21
PROVIDERS: ADMIT Family Medicine; ATTEND Family Medicine
DX: A41.9 Sepsis, unspecified organism (principal); I26.99 Other pulmonary embolism without acute cor pulmonale; J96.01 Acute respiratory failure with hypoxia; N17.9 Acute kidney failure, unspecified; J18.9 Pneumonia, unspecified organism; D69.59 Other secondary thrombocytopenia; C79.31 Secondary malignant neoplasm of brain; E86.9 Volume depletion, unspecified; I82.402 Acute embolism and thrombosis of unspecified deep veins of left lower extremity; J44.9 Chronic obstructive pulmonary disease, unspecified; J45.909 Unspecified asthma, uncomplicated; M81.0 Age-related osteoporosis without current pathological fracture; K44.9 Diaphragmatic hernia without obstruction or gangrene; M19.90 Unspecified osteoarthritis, unspecified site; N18.2 Chronic kidney disease, stage 2 (mild); I12.9 Hypertensive chronic kidney disease with stage 1 through stage 4 chronic kidney disease, or unspecified chronic kidney disease; K21.9 Gastro-esophageal reflux disease without esophagitis; Z90.11 Acquired absence of right breast and nipple; Z85.3 Personal history of malignant neoplasm of breast; Z87.891 Personal history of nicotine dependence; Z90.49 Acquired absence of other specified parts of digestive tract; Z92.3 Personal history of irradiation; Z85.528 Personal history of other malignant neoplasm of kidney; Z92.21 Personal history of antineoplastic chemotherapy; Z79.899 Other long term (current) drug therapy
CPT/HCPCS: 36415; 71020; 71275; 77336; 77412; 77417; 80048; 80053; 81001; 82550; 82553; 83605; 84439; 84443; 84484; 85025; 85027; 85610; 85730; 87040; 87070; 87205; 93005; 93306; 93970; 94640; 96360; 96361; 99285

== ENCOUNTER → 2016-10-11 | Outpatient (CLI) | payer MEDICARE, OTHER | LOC: RADCTMAIN 13:48 → EEVIPCON 16:00 | PROVIDERS: ATTEND Internal Medicine Hematology & Oncology | DX: Z03.89 Encounter for observation for other suspected diseases and conditions ruled out (principal); C50.111 Malignant neoplasm of central portion of right female breast | CPT/HCPCS: 82565; 84520 ==

== ENCOUNTER → 2016-10-13 | Outpatient (CLI) | payer MEDICARE, OTHER ==
--- NOTE | 2016-10-13 15:48 | CT ---
EXAMINATION TYPE: CT ChestAbdPelvis w con DATE OF EXAM: 10/13/2016 2:39 PM COMPARISON: CTA chest September 06, 2016. HISTORY: Follow up breast cancer CT DLP: 1600 mGycm. Automated Exposure Control for Dose Reduction was Utilized. CONTRAST: CT scan of the thorax, abdomen and pelvis is performed with oral and with IV Contrast, patient inject ed with 80 mL of Visipaque 320. FINDINGS: LUNGS: Some peripheral reticulation and/or fibrosis remains present more prominent in the right lung versus left lung. There is interval improvement in groundglass opacity and consolidation in the right middle lobe with persistent nodular consolidation laterally measuring 13 x 12 mm on axial image 36. Slightly more focal atelectasis or nodular consolidation posteriorly in the right lung base is presen t axial image 50. There is improvement in posterior atelectasis and/or infiltrate noted. No pleural e ffusion or pneumothorax is seen bilaterally. Tracheobronchial tree is patent MEDIASTINUM: There are no greater than 1 cm hilar or mediastinal lymph nodes. Ascending aorta measure s 3.8 cm in diameter felt stable. No cardiomegaly or pericardial effusion is seen. OTHER: Surgical changes from right-sided mastectomy are redemonstrated. Interval improvement in edema and subcentimeter nodularity left axillary region is noted. LIVER/GB: Cholecystectomy clips are present. PANCREAS: No significant abnormality is seen. SPLEEN: No significant abnormality is seen. ADRENALS: Right adrenal Mass. Posterior limb measuring 2.2 x 1.6 cm on axial image 54 is felt unchang ed from prior abdominal CT. KIDNEYS: Right kidney is surgically absent. Numerous clips at this level are present. BOWEL: There is stable moderate size hiatal hernia. Some scattered colonic diverticula are present. T here is no suspicious small or large bowel dilatation GENITAL ORGANS: A 1.6 cm low dense lesion in left ovary or adnexa on axial image 98 is abnormal findi ng for postmenopausal female but unchanged from prior CT suggesting benign etiology. LYMPH NODES: No greater than 1cm abdominal or pelvic lymph nodes are appreciated. OSSEOUS STRUCTURES: There is multilevel facet arthropathy in the lower lumbar spine. Exaggerated curv ature is seen on sagittal images. OTHER: No significant additional abnormality is seen. IMPRESSION: 1. Improving groundglass opacity and consolidation in the right upper and lower lobes. Some areas of nodularity need to be followed. 2. Stable right adrenal and left ovarian mass. No new mass or adenopathy is seen to suggest neoplasti c recurrence or progression. 3. Resolving inflammatory change or edema left axillary region noted.
== END | disposition home or self-care (01) ==
LOC: RADCTMAIN 13:23
PROVIDERS: ATTEND Internal Medicine Hematology & Oncology
DX: C50.111 Malignant neoplasm of central portion of right female breast (principal); J98.4 Other disorders of lung; R91.8 Other nonspecific abnormal finding of lung field
CPT/HCPCS: 82565; 84520; 71260; 74177; 96360; 96361; 36415; Q9967

== ENCOUNTER → 2016-10-13 | Outpatient (CLI) | payer MEDICARE, OTHER ==
[~2016-10-13] MED LIST: SODIUM CHLORIDE 0.9% 1,000 ML IV SCH; SODIUM CHLORIDE 0.9% 250 ML in EMPTY BAG 1 BAG IV PRN; SODIUM CHLORIDE 0.9% 500 ML in EMPTY BAG 1 BAG IV PRN
[2016-10-13 10:47] VITALS: BP 92/67; PULSE 78; RESP 16; TEMP 98.2
== END ==
LOC: PROCWHC3 10:00
PROVIDERS: ATTEND Internal Medicine Hematology & Oncology
DX: C50.111 Malignant neoplasm of central portion of right female breast (principal); N18.3 Chronic kidney disease, stage 3 (moderate); D63.1 Anemia in chronic kidney disease
CPT/HCPCS: 36415; 82565; 84520; 96360; 96361

== ENCOUNTER 2016-10-17 10:50 | Inpatient (IN) | payer MEDICARE, OTHER ==
[2016-10-17] MEDS ORDERED: SODIUM CHLORIDE 0.9% 500 ML IV SCH (11:30)
[2016-10-17 12:09] LABS: Calcium 9.1 mg/dL (8.4-10.2); Total Bilirubin 0.8 mg/dL (0.2-1.3); Total Protein 5.2 g/dL (6.3-8.2)
--- NOTE | 2016-10-17 12:10 | XR ---
EXAMINATION TYPE: XR chest 2V DATE OF EXAM: 10/17/2016 11:52 AM COMPARISON: 09/05/2016 HISTORY: Fever TECHNIQUE: Frontal and lateral views of the chest are obtained. FINDINGS: There is some patchy consolidation along the right lateral chest wall. Heart is probably e nlarged. There is no gross heart failure. There is slight blunting of right costophrenic angle. There are chest leads. The bony thorax appears intact. IMPRESSION: There is small right pleural effusion with right lower lobe pulmonary infiltrate along t he right lateral chest wall. The chest is slightly improved compared to 09/05/2016. No heart failure.
[2016-10-17 12:13] LABS: Creatine Kinase 26 U/L (30-135)
[2016-10-17 12:25] LABS: Creatine Kinase MB <0.2 ng/mL (0.0-2.4); Troponin I <0.012 ng/mL (0.000-0.034)
[2016-10-17 12:40] LABS: Aty Lym Flag Slight; CH 31.2; CHCM 32.2; HCT 25.8 % (34.0-46.0); HDW 2.93; Hypochromasia Slight; MCH 32.1 pg (25.0-35.0); Mean Platelet Volume 7.6; RBC 2.65 m/uL (3.80-5.40); RDW 15.7 % (11.5-15.5); WBC 5.1 k/uL (3.8-10.6); WBC (Perox) 5.06
[2016-10-17 12:41] LABS: HGB 8.5 gm/dL (11.4-16.0); MCV 97.5 fL (80.0-100.0)
[2016-10-17 12:48] LABS: INR 1.4 (<1.1); Partial Thromboplastin Time 26.5 sec (22.0-30.0); Prothrombin Time 13.5 sec (9.0-12.0)
[2016-10-17 13:02] LABS: Add Differential Manual Differential
[2016-10-17 13:04] LABS: Manual Review Performed; Nucleated Red Blood Cells 0 /100 WBC (0-0); Total Cells Counted 100
[2016-10-17 13:10] LABS: Appearance,Urine Clear (Clear); Bilirubin,Urine Negative (Negative); Glucose,Urine (UA) Negative (Negative); Ketones,Urine Negative (Negative); Leukocyte Esterase,Urine Trace (Negative); Nitrite,Urine Negative (Negative); Particle Count 594; Protein,Urine Negative (Negative); Specific Gravity,Urine 1.003 (1.001-1.035); UA Billing (MACRO vs. MICRO) MICRO; Urobilinogen,Urine <2.0 mg/dL (<2.0); WBC,Urine 2 /hpf (0-5)
--- NOTE | 2016-10-17 13:44 | ED ---
General Adult HPI - General Chief complaint: Recheck/Abnormal Lab/Rx Stated complaint: Hypotension Time Seen by Provider: 10/17/16 10:59 Source: EMS Mode of arrival: EMS Limitations: no limitations - History of Present Illness Initial comments: 70 years old female presented with a low blood pressure she checked her blood pressure at home today was 67/47 and in the EMS he was low as well she felt weak blood pressure was fine last night she had some fever as well she has been treated for breast cancer and PE in the past and now she had a radiation for brain cancer. Denies any headaches no chest pain or shortness of breath no abdominal pain no frequency urgency dysuria no signs of TIA or CVA - Related Data Home Medications Medication Instructions Recorded Confirmed Cimetidine [Tagamet] 400 mg PO DAILY@0600 05/26/14 10/17/16 Beclomethasone Dipropionate [Qvar 1 - 2 puff INHALATION RT-BID PRN 06/25/15 80 mcg/puff] Multivit with Calcium,Iron,Min 1 tab PO DAILY@0900 06/25/15 10/17/16 [Women's Daily Multivitamin] Anastrozole [Arimidex] 1 mg PO DAILY@0900 09/04/16 10/17/16 Dexamethasone 1 mg PO DAILY@0900 10/13/16 10/17/16 LORazepam [Ativan] 0.5 mg PO BID PRN 10/13/16 10/17/16 Metoprolol Tartrate [Lopressor] 25 mg PO BID@0900,2100 10/13/16 10/17/16 Rivaroxaban [Xarelto] 20 mg PO DAILY@0900 10/13/16 10/17/16 Acetaminophen [Tylenol] 650 mg PO Q4H PRN 10/17/16 10/17/16 Albuterol Nebulized [Ventolin 2.5 mg INHALATION RT-Q4H PRN 10/17/16 10/17/16 Nebulized] Albuterol Nebulized [Ventolin 2.5 mg INHALATION RT-QID 10/17/16 10/17/16 Nebulized] Arginaid Extra Liquid 1 can PO AC-BID@0900,1700 10/17/16 10/17/16 Docusate [Colace] 100 mg PO HS@2100 10/17/16 10/17/16 Famotidine [Pepcid] 20 mg PO HS@2100 10/17/16 10/17/16 Gabapentin [Neurontin] 300 mg PO TID@0900,1300,2100 10/17/16 10/17/16 HYDROcodone/APAP 7.5-325MG [[place] 1 tab PO Q6H PRN 10/17/16 10/17/16 7.5-325] Allergies Allergy/AdvReac Type Severity Reaction Status Date / Time ciprofloxacin HCl Allergy Itching Verified 10/17/16 12:22 [From Cipro] NSAIDS (Non-Steroidal Allergy Rash/Hives Verified 10/17/16 12:22 Anti-Inflamma aripiprazole [From Abilify] AdvReac sleepiness Verified 10/17/16 12:22 Penicillins AdvReac Nausea Verified 10/17/16 12:22 Review of Systems ROS Statement: Those systems with pertinent positive or pertinent negative responses have been documented in the HPI. ROS Other: All systems not noted in ROS Statement are negative. Past Medical History Past Medical History: Asthma, Cancer, COPD, GERD/Reflux, Hypertension, Osteoarthritis (OA), Pulmonary Embolus (PE), Renal Disease Additional Past Medical History / Comment(s): breast, Brain, and kidney cancer History of Any Multi-Drug Resistant Organisms: None Reported Past Surgical History: Appendectomy, Cholecystectomy Additional Past Surgical History / Comment(s): RT mastectomy, lymph node removal , R wrist fx repair, right nephrectomy, brain biopsy Past Anesthesia/Blood Transfusion Reactions: No Reported Reaction Past Psychological History: Depression Smoking Status: Former smoker Past Alcohol Use History: Occasional Additional Past Alcohol Use History / Comment(s): quit smoking 1 month, smoked 1 /2-1ppd since mid Past Drug Use History: None Reported - Past Family History Mother Family Medical History: No Reported History Additional Family Medical History / Comment(s): pt adopted no family history known General Exam - General Exam Comments Initial Comments: General: The patient is awake and alert, in no distress, and does not appear acutely ill. Skin: Skin is warm and dry and no rashes or lesions are noted. She Large areas of ecchymosis on the left arm she said he been there for a few days, mild erythema Eye: Pupils are equal, round and reactive to light, extra-ocular movements are intact; there is normal conjunctiva bilaterally. Ears, nose, mouth and throat: There are moist mucous membranes and no oral lesions. Neck: The neck is supple, there is no tenderness or JVD. Cardiovascular: There is a regular rate and rhythm. No murmur, rub or gallop is appreciated. Respiratory: To auscultation bilateral, no wheezing no rhonchi no distress respiratory harg[place] noticed Gastrointestinal: Soft, non-distended, non-tender abdomen without masses or organomegaly noted. There is no rebound or guarding present. Bowel sounds are unremarkable. Back: There is no tenderness to palpation in the midline. There is no obvious deformity. Musculoskeletal: Normal ROM, no tenderness, There is no pedal edema. There is no calf tenderness or swelling. No cords were appreciated. Neurological: CN II-XII intact, Cranial nerves III through XII are intact. There are no obvious motor or sensory deficits. Coordination appears grossly intact. Speech is normal. Psychiatric: Cooperative, appropriate mood & affect, normal judgment. Limitations: no limitations Course Vital Signs 10/17/16 10:53 Temperature 99.3 F Pulse Rate 85 Respiratory 20 Rate Blood Pressure 92/57 O2 Sat by Pulse 97 Oximetry Patient was reassessed at 1330 white count is normal INR is normal hemoglobin is 8.5 and was above 12 just a month ago lactate is 2.8 and troponin is 0 considering her low blood pressure and anemia and a pneumonia she be started on empiric strong antibiotics she be admitted and would have a GI consult to make sure that she is not bleeding in upper or lower GI and also do the serial CBCs as well EKG Findings - EKG Comments: EKG Findings:: EKG is normal sinus rhythm ventricular rate is 78 NV interval is 156 QRS duration is 66 QT/QTc is 372/424 review of this EKG does not reveal any ST elevation or ST depression Medical Decision Making - Lab Data Result diagrams: 10/17/16 12:35 10/17/16 11:11 Lab Results 10/17/16 10/17/16 10/17/16 Range/Units 11:11 11:11 11:11 WBC (3.8-10.6) k/uL RBC (3.80-5.40) m/uL Hgb (11.4-16.0) gm/dL Hct (34.0-46.0) % MCV (80.0-100.0) fL MCH (25.0-35.0) pg MCHC (31.0-37.0) g/dL RDW (11.5-15.5) % Plt Count (150-450) k/uL Neutrophils % (Manual) % Band Neutrophils % % Lymphocytes % (Manual) % Monocytes % (Manual) % Neutrophils # (Manual) (1.3-7.7) k/uL Lymphocytes # (Manual) (1.0-4.8) k/uL Monocytes # (Manual) (0-1.0) k/uL Nucleated RBCs (0-0) /100 WBC Manual Slide Review Hypochromasia Poikilocytosis (manual PT (9.0-12.0) sec INR (<1.1) APTT (22.0-30.0) sec Sodium 140 (137-145) mmol/L Potassium 4.0 (3.5-5.1) mmol/L Chloride 105 (98-107) mmol/L Carbon Dioxide 24 (22-30) mmol/L Anion Gap 11 mmol/L BUN 18 H (7-17) mg/dL Creatinine 1.30 H (0.52-1.04) mg/dL Est GFR (MDRD) Af Amer 49 (>60 ml/min/1.73 sqM) Est GFR (MDRD) Non-Af 41 (>60 ml/min/1.73 sqM) Glucose 78 (74-99) mg/dL Plasma Lactic Acid Sami 2.8 H* (0.7-2.0) mmol/L Calcium 9.1 (8.4-10.2) mg/dL Total Bilirubin 0.8 (0.2-1.3) mg/dL AST 24 (14-36) U/L ALT 33 (9-52) U/L Alkaline Phosphatase 39 (38-126) U/L Total Creatine Kinase 26 L (30-135) U/L CK-MB (CK-2) <0.2 (0.0-2.4) ng/mL CK-MB (CK-2) Rel Index Troponin I <0.012 (0.000-0.034) ng/mL Total Protein 5.2 L (6.3-8.2) g/dL Albumin 2.9 L (3.5-5.0) g/dL Cortisol 6 ug/dL Urine Color Urine Appearance (Clear) Urine pH (5.0-8.0) Ur Specific [place] (1.001-1.035) Urine Protein (Negative) Urine Glucose (UA) (Negative) Urine Ketones (Negative) Urine Blood (Negative) Urine Nitrite (Negative) Urine Bilirubin (Negative) Urine Urobilinogen (<2.0) mg/dL Ur Leukocyte Esterase (Negative) Urine WBC (0-5) /hpf 10/17/16 10/17/16 10/17/16 Range/Units 11:29 12:35 12:44 WBC 5.1 (3.8-10.6) k/uL RBC 2.65 L (3.80-5.40) m/uL Hgb 8.5 L D (11.4-16.0) gm/dL Hct 25.8 L (34.0-46.0) % MCV 97.5 D (80.0-100.0) fL MCH 32.1 (25.0-35.0) pg MCHC 33.0 (31.0-37.0) g/dL RDW 15.7 H (11.5-15.5) % Plt Count 259 D (150-450) k/uL Neutrophils % (Manual) 62.0 % Band Neutrophils % 1.0 % Lymphocytes % (Manual) 18.0 % Monocytes % (Manual) 19.0 % Neutrophils # (Manual) 3.2 (1.3-7.7) k/uL Lymphocytes # (Manual) 0.9 L (1.0-4.8) k/uL Monocytes # (Manual) 1.0 (0-1.0) k/uL Nucleated RBCs 0 (0-0) /100 WBC Manual Slide Review Performed Hypochromasia Slight Poikilocytosis (manual Present PT 13.5 H (9.0-12.0) sec INR 1.4 (<1.1) APTT 26.5 (22.0-30.0) sec Sodium (137-145) mmol/L Potassium (3.5-5.1) mmol/L Chloride (98-107) mmol/L Carbon Dioxide (22-30) mmol/L Anion Gap mmol/L BUN (7-17) mg/dL Creatinine (0.52-1.04) mg/dL Est GFR (MDRD) Af Amer (>60 ml/min/1.73 sqM) Est GFR (MDRD) Non-Af (>60 ml/min/1.73 sqM) Glucose (74-99) mg/dL Plasma Lactic Acid Sami (0.7-2.0) mmol/L Calcium (8.4-10.2) mg/dL Total Bilirubin (0.2-1.3) mg/dL AST (14-36) U/L ALT (9-52) U/L Alkaline Phosphatase (38-126) U/L Total Creatine Kinase (30-135) U/L CK-MB (CK-2) (0.0-2.4) ng/mL CK-MB (CK-2) Rel Index Troponin I (0.000-0.034) ng/mL Total Protein (6.3-8.2) g/dL Albumin (3.5-5.0) g/dL Cortisol ug/dL Urine Color Light Yellow Urine Appearance Clear (Clear) Urine pH 6.0 (5.0-8.0) Ur Specific [place] 1.003 (1.001-1.035) Urine Protein Negative (Negative) Urine Glucose (UA) Negative (Negative) Urine Ketones Negative (Negative) Urine Blood Negative (Negative) Urine Nitrite Negative (Negative) Urine Bilirubin Negative (Negative) Urine Urobilinogen <2.0 (<2.0) mg/dL Ur Leukocyte Esterase Trace H (Negative) Urine WBC 2 (0-5) /hpf Disposition Clinical Impression: Hypotension, Pneumonia, Anemia Disposition: ADMITTED IP TO THIS [facility] Condition: Fair
[2016-10-17] MEDS ORDERED: AZITHROMYCIN 500 MG in SODIUM CHLORIDE 0.9% 250 ML IVPB STA (13:45)
[2016-10-17] MEDS ORDERED: PNEUMONIA PROTOCOL UTILIZED 1 EACH MISC PO PRN (13:46)
[2016-10-17] MEDS ORDERED: cefTRIAXone 2,000 MG in SODIUM CHLORIDE 0.9% 100 ML IVPB STA (13:49)
[2016-10-17] MEDS: SODIUM CHLORIDE 0.9% 1,000 ML IV SCH (14:21)
[2016-10-17] MEDS: IPRATROPIUM-ALBUTEROL 3 ML NEB INHALATION SCH ×2 (15:35→19:15)
[2016-10-17 16:16] VITALS: BMI 36.6
[2016-10-17 17:41] LABS: Creatine Kinase 29 U/L (30-135)
[2016-10-17 17:54] LABS: Creatine Kinase MB <0.2 ng/mL (0.0-2.4); Troponin I <0.012 ng/mL (0.000-0.034)
[2016-10-17] MEDS ORDERED: PIPERACILLIN-TAZOBACTAM 3.375 GM in DEXTROSE/WATER 1 50ML.BAG IVPB SCH (18:15)
[2016-10-17] MEDS ORDERED: HYDROmorphone 1 MG/ML 1 ML SYRINGE IVP PRN (18:15)
[2016-10-17] MEDS ORDERED: ALPRAZolam 0.25 MG TAB PO PRN (18:15)
[2016-10-17] MEDS ORDERED: TEMAZEPAM 15 MG CAP PO PRN (18:15)
[2016-10-17] MEDS ORDERED: LORazepam 0.5 MG TAB PO PRN (18:16)
[2016-10-17] MEDS: BUDESONIDE 1 MG/2 ML NEBU INHALATION SCH (19:15)
[2016-10-17] MEDS: FORMOTEROL FUMARATE 20 MCG/2 ML NEBU INHALATION SCH (19:15)
[2016-10-17] MEDS: DOCUSATE 100 MG CAP PO SCH (21:03)
[2016-10-17] MEDS: METOPROLOL TARTRATE 25 MG TAB PO SCH (21:04)
[2016-10-17] MEDS: GABAPENTIN 300 MG CAP PO SCH (21:04)
[2016-10-17] MEDS: PIPERACILLIN-TAZOBACTAM 3.375 GM in DEXTROSE/WATER 1 50ML.BAG IVPB SCH (21:04)
--- NOTE | 2016-10-17 22:41 | HP ---
DATE OF ADMISSION: 10/17/2016 CHIEF COMPLAINT: Hypotension as well as shortness of breath. I am covering for Dr. Koo. HISTORY OF PRESENT ILLNESS: This 70-year-old woman with a past history of multiple medical problems, including past medical history including history of breast cancer, metastases to the brain, history of asthma, COPD, history of pulmonary embolus, history of DVTs, history of hypertension, history of DJD, history of renal disease, appendectomy, cholecystectomy, depression, being followed by Dr. Koo in the outpatient setting was a weak and blood pressure found to be 67/47, EMS brought the patient to [facility] and admitted to the hospital for further evaluation and treatment. The patient also had some fever. The patient also was receiving radiation of the brain for mets. Otherwise, there is no history of fever, rigors or chills. No history of headache, loss of consciousness or seizures. The patient was taken to [facility] and admitted to the hospital for further evaluation and treatment. Evaluation in the ER showed WBC 5.7, hemoglobin 8.5. INR is 1.4, plasma lactic acid 2.8 and 1.2. Influenza is negative. Chest x-ray which I reviewed personally showed evidence of right pleural effusion with right lower lobe infiltrate also. There is no history of any fever, rigors, chills, headache, loss of consciousness or seizures. PAST MEDICAL HISTORY: History of breast cancer with METS to the brain with radiation, COPD, GERD, hypertension, history of DJD, pulmonary embolus, history of cholecystectomy, depression. Medications prior to admission include: Home medications are: 1. Xarelto 20 mg p.o. daily. 2. Multivitamins 1 p.o. daily. 3. Lopressor 25 mg b.i.d. 4. Ativan 0.5 mg b.i.d. p.r.n. 5. [place] 7.5 1 q.6h p.r.n. 6. Neurontin 300 mg t.i.d. 7. Pepcid 20 mg q.h.s. 8. Colace 100 milligrams q.h.s. 9. Dexamethasone 1 milligrams p.o. daily. 10. Tagamet 400 mg p.o. daily. 11. Q-[place]ren[place] 1 to 2 puffs b.i.d. p.r.n. 13. Arimidex 1 mg p.o. daily. 14. Ventolin 2.5 q.i.d. and q.4 p.r.n. 15. Tylenol 650 q.4 p.r.n. ALLERGIES: CIPRO, NSAIDS, ABILIFY AND PENICILLIN. FAMILY HISTORY: The family is adopted. Family history unknown. SOCIAL HISTORY: Previous history of smoking, occasional alcohol intake. REVIEW OF SYSTEMS: ENT: Diminishing hearing. Diminished vision. CARDIOVASCULAR: As mentioned earlier. RESPIRATORY: As mentioned earlier. GI: No nausea. No vomiting. : No dysuria. Nervous system: No numbness or weakness. Allergy/immunology: No asthma or hayfever. MUSCULOSKELETAL: As mentioned earlier. Dermatology: Negative. Rheumatology: Negative. HEMATOLOGY/ONCOLOGY: No history of anemia. ENDOCRINE: No history of diabetes mellitus, hypothyroidism. CONSTITUTIONAL: As mentioned earlier. DERMATOLOGY: Negative. RHEUMATOLOGY: Negative. PSYCHIATRY: As mentioned earlier. PHYSICAL EXAMINATION: The patient is alert and oriented times three. Pulse 88, blood pressure nd. Respiratory rate 18, temperature normal, pulse ox 98% on room air. HEENT: Conjunctivae normal. Oral mucosal moist. NECK: No jugular venous distention. No carotid bruit. No lymph node enlargement. CARDIOVASCULAR: S1, S2 muffled. RESPIRATORY: Breath sounds diminished at the bases. A few scattered rhonchi and crackles. ABDOMEN: Soft, obese, nontender. LEGS: No edema. No swelling. CENTRAL NERVOUS SYSTEM: No focal deficits. LABS: WBC ntd hemoglobin 8.5, creatinine 1.30. ASSESSMENT: 1. Acute right lower lobe pneumonia, possibly gram-negative with severe sepsis and septic shock and hypotension. 2. Increased plasma lactic acid. 3. Increased creatinine with possibly chronic kidney disease, stage III. 4. Anemia, normocytic. 5. Hypoalbuminemia with mild to moderate protein calorie malnutrition. 6. History of breast cancer with brain metastases status post radiation. 7. History of chronic obstructive pulmonary disease. 8. History of gastroesophageal reflux disease. 9. Hypertension. 10. History of degenerative joint disease. 11. History of extensive pulmonary embolism with pulmonary infarction. 12. History of cholecystectomy. 13. History of right mastectomy. 14. History of depression, not otherwise specified. 15. Remote history of nicotine dependence. 16. Anemia, normocytic, anemia secondary to malignancy. 17. Mild coagulopathy. 18. Chronic obstructive pulmonary disease. 19. History of gastroesophageal reflux disease. 20. NO CODE, NO CARDIOPULMONARY RESUSCITATION NO VENT. RECOMMENDATIONS AND DISCUSSION: In this 70-year-old woman who presented with multiple complex medical issues, we will monitor the patient closely. Continue the current medications, continue symptomatic treatment. I would recommend continue the bronchodilators and empiric antibiotics. I would recommend IV Zosyn at this time and obtain the cultures. Other than that, also recommend evaluation with Dr. Ceja and as well as pulmonary team also. The prognosis is guarded because of multiple complex medical issues. Further recommendations to follow. A copy of dictation being forwarded to Dr. Ronnell Koo who is the primary care physician. NIC
[2016-10-17 23:39] LABS: Creatine Kinase 36 U/L (30-135)
[2016-10-17 23:49] LABS: Creatine Kinase MB <0.2 ng/mL (0.0-2.4); Troponin I <0.012 ng/mL (0.000-0.034)
[2016-10-18] MEDS: SODIUM CHLORIDE 0.9% 1,000 ML IV SCH ×3 (05:52→21:33)
[2016-10-18] MEDS: PIPERACILLIN-TAZOBACTAM 3.375 GM in DEXTROSE/WATER 1 50ML.BAG IVPB SCH ×3 (05:52→23:23)
[2016-10-18 06:57] LABS: Basophils % (A) 0 %; CH 30.7; CHCM 30.6; Eosinophils % (A) 1 %; HDW 2.84; HGB 8.9 gm/dL (11.4-16.0); Hypochromasia Moderate; Luc # (Auto) 0.07; Luc % (Auto) 2; Lymphocytes # (A) 0.3 k/uL (1.0-4.8); Lymphocytes % (A) 8 %; MCH 31.9 pg (25.0-35.0); MCHC 31.6 g/dL (31.0-37.0); MCV 100.8 fL (80.0-100.0); Macrocytosis Slight; Mean Platelet Volume 7.4; Monocytes # (A) 0.3 k/uL (0-1.0); Monocytes % (A) 6 %; Neutrophils # (A) 3.7 k/uL (1.3-7.7); Neutrophils % (A) 84 %; RBC 2.78 m/uL (3.80-5.40); RDW 15.4 % (11.5-15.5); WBC 4.4 k/uL (3.8-10.6); WBC (Perox) 4.69
[2016-10-18 07:18] LABS: Calcium 8.9 mg/dL (8.4-10.2)
--- NOTE | 2016-10-18 07:41 | XR ---
EXAMINATION TYPE: XR chest 2V DATE OF EXAM: 10/18/2016 7:37 AM HISTORY: pneumonia. REFERENCE: Previous study dated 10/17/2016. FINDINGS: Lung volumes are prominent. The heart is mildly enlarged. There is a small right-sided effu flor. There are diffuse increased markings on the right. Overall aeration has improved. IMPRESSION: 1. COPD. 2. MILD CARDIOMEGALY. 3. SMALL RIGHT EFFUSION. 4. IMPROVED AERATION OF THE RIGHT LUNG.
[2016-10-18] MEDS ORDERED: MULTIVIT WITH CALCIUM IRON MIN PO SCH (09:00)
[2016-10-18] MEDS ORDERED: [UNRECOGNIZED DRUG - OTHER] PO SCH (09:00)
[2016-10-18] MEDS ORDERED: cefTRIAXone 2,000 MG in SODIUM CHLORIDE 0.9% 100 ML IVPB SCH (09:00)
[2016-10-18] MEDS: ACETAMINOPHEN TAB 325 MG TAB PO PRN ×2 (09:02→17:40)
[2016-10-18] MEDS: PANTOPRAZOLE 40 MG TABLET PO SCH (09:03)
[2016-10-18] MEDS: ANASTROZOLE 1 MG TAB PO SCH (09:03)
[2016-10-18] MEDS: DEXAMETHASONE 0.5 MG TAB PO SCH (09:04)
[2016-10-18] MEDS: GABAPENTIN 300 MG CAP PO SCH ×3 (09:04→21:33)
[2016-10-18] MEDS: RIVAROXABAN 10 MG TAB PO SCH (09:05)
[2016-10-18] MEDS: METOPROLOL TARTRATE 25 MG TAB PO SCH ×2 (09:05→21:33)
[2016-10-18] MEDS: BUDESONIDE 1 MG/2 ML NEBU INHALATION SCH ×2 (09:08→20:27)
[2016-10-18] MEDS: FORMOTEROL FUMARATE 20 MCG/2 ML NEBU INHALATION SCH ×2 (09:08→20:27)
[2016-10-18] MEDS: IPRATROPIUM-ALBUTEROL 3 ML NEB INHALATION SCH ×4 (09:08→20:27)
[2016-10-18] MEDS ORDERED: AZITHROMYCIN 500 MG TAB PO SCH (12:00)
[2016-10-18] MEDS: MULTIVITAMINS, THERA 1 EACH TAB PO SCH (12:29)
[2016-10-18] MEDS: THIAMINE 100 MG TAB PO SCH (12:29)
[2016-10-18] MEDS: FOLIC ACID 1 MG TAB PO SCH (12:29)
--- NOTE | 2016-10-18 12:47 | P.CNPUL ---
History of Present Illness Consult date: 10/18/16 Requesting physician: Ivette Velez Reason for consult: dyspnea Chief complaint: Low blood pressure readings at home, weakness History of present illness: This is a very pleasant 70-year-old female patient who follows with Dr. Ronnell Koo is her primary care physician. She has a history of chronic obstructive pulmonary disease with the 40+ pack per day smoking history however quit approximately a month ago, hypertension, pulmonary embolism/DVT, osteoarthritis. She also has history of breast cancer status post right mastectomy with metastasis to the brain. She has a history of kidney cancer status post right nephrectomy as well. She was seen here approximately one month ago and found to have a PE at that time and has been on Xarelto. She presented here to the emergency room yesterday after having progressive weakness and checked her blood pressure at home and found it to be in the 60s systolically and was brought in by EMS. She is seen today in consultation on the selective care unit. She is currently awake and alert in no acute distress. She denies any worsening shortness of breath, cough or congestion. She's been afebrile. Maintain O2 saturations in the mid 90s on room air. Her chest x-ray today reveals evidence of chronic obstructive pulmonary disease, small right pleural effusion, mild cardiomegaly and improved aeration of the right lung. Her hemoglobin is stable. No leukocytosis. Influenza screen was negative. Review of Systems REVIEW OF SYSTEMS: 14 point review of system was conducted. All negative other than as mentioned in the HPI. Past Medical History Past Medical History: Asthma, Cancer, COPD, GERD/Reflux, Hypertension, Osteoarthritis (OA), Pulmonary Embolus (PE), Renal Disease Additional Past Medical History / Comment(s): breast, Brain, and kidney cancer History of Any Multi-Drug Resistant Organisms: None Reported Past Surgical History: Appendectomy, Cholecystectomy Additional Past Surgical History / Comment(s): RT mastectomy, lymph node removal , R wrist fx repair, right nephrectomy, brain biopsy Past Anesthesia/Blood Transfusion Reactions: No Reported Reaction Past Psychological History: Depression Smoking Status: Former smoker Past Alcohol Use History: Occasional Additional Past Alcohol Use History / Comment(s): quit smoking 1 month, smoked 1 /2-1ppd since mid ' Past Drug Use History: None Reported - Past Family History Mother Family Medical History: No Reported History Additional Family Medical History / Comment(s): pt adopted no family history known Medications and Allergies Home Medications Medication Instructions Recorded Confirmed Type Cimetidine [Tagamet] 400 mg PO DAILY@0600 05/26/14 10/17/16 History Beclomethasone Dipropionate [Qvar 1 - 2 puff INHALATION RT-BID PRN 06/25/15 History 80 mcg/puff] Multivit with Calcium,Iron,Min 1 tab PO DAILY@0900 06/25/15 10/17/16 History [Women's Daily Multivitamin] Anastrozole [Arimidex] 1 mg PO DAILY@0900 09/04/16 10/17/16 History Dexamethasone 1 mg PO DAILY@0900 10/13/16 10/17/16 History LORazepam [Ativan] 0.5 mg PO BID PRN 10/13/16 10/17/16 History Metoprolol Tartrate [Lopressor] 25 mg PO BID@0900,209910/13/16 10/17/16 History Rivaroxaban [Xarelto] 20 mg PO DAILY@0900 10/13/16 10/17/16 History Acetaminophen [Tylenol] 650 mg PO Q4H PRN 10/17/16 10/17/16 History Albuterol Nebulized [Ventolin 2.5 mg INHALATION RT-Q4H PRN 10/17/16 10/17/16 History Nebulized] Albuterol Nebulized [Ventolin 2.5 mg INHALATION RT-QID 10/17/16 10/17/16 History Nebulized] Arginaid Extra Liquid 1 can PO AC-BID@0900,1700 10/17/16 10/17/16 History Docusate [Colace] 100 mg PO HS@209910/17/16 10/17/16 History Famotidine [Pepcid] 20 mg PO HS@209910/17/16 10/17/16 History Gabapentin [Neurontin] 300 mg PO TID@0900,1300,209910/17/16 10/17/16 History HYDROcodone/APAP 7.5-325MG [[place] 1 tab PO Q6H PRN 10/17/16 10/17/16 History 7.5-325] Allergies Allergy/AdvReac Type Severity Reaction Status Date / Time ciprofloxacin HCl Allergy Itching Verified 10/17/16 12:22 [From Cipro] NSAIDS (Non-Steroidal Allergy Rash/Hives Verified 10/17/16 12:22 Anti-Inflamma aripiprazole [From Abilify] AdvReac sleepiness Verified 10/17/16 12:22 Penicillins AdvReac Nausea Verified 10/17/16 12:22 Physical Exam Vitals: Vital Signs Temp Pulse Pulse Resp BP BP Pulse Ox 10/18/16 09:20 88 10/18/16 09:14 88 10/18/16 09:13 84 10/18/16 09:08 84 18 10/18/16 03:32 97 F L 89 18 91/57 98 10/18/16 00:00 82 18 99/57 95 10/17/16 20:00 98.5 F 105 H 18 127/60 96 10/17/16 19:28 88 10/17/16 19:18 88 10/17/16 17:39 96 10/17/16 15:57 18 110/75 96 10/17/16 15:50 88 10/17/16 15:35 90 10/17/16 15:17 98 F 76 18 108/56 98 Intake and Output 10/17/16 10/18/16 10/18/16 22:59 06:59 14:59 Intake Total 222 850 50 Balance 222 850 50 Intake: Intake, IV Titration 850 Amount Piperacillin-Tazobactam 3 50 .375 gm In Dextrose/Water 1 50ml.bag @ 12.5 mls/hr IVPB Q8H [facility] Rx#: [id number] Sodium Chloride 0.9% 1, 800 000 ml @ 100 mls/hr IV . Q10H [facility] Rx#:[id number] Oral 222 50 Other: # Voids 1 1 Weight 90.2 kg GENERAL EXAM: Alert, active, comfortable in no apparent distress. HEAD: Normocephalic. EYES: Normal reaction of pupils, equal size. NOSE: Clear with pink turbinates. THROAT: No erythema or exudates. NECK: No masses, no JVD. CHEST: No chest wall deformity. LUNGS: Equal air entry with no crackles, wheeze, rhonchi or dullness. CVS: S1 and S2 normal with no audible mumurs, regular rhythm. ABDOMEN: No hepatosplenomegaly, normal bowel sounds, no guarding or rigidity. SPINE: No scoliosis or deformity SKIN: No rashes CENTRAL NERVOUS SYSTEM: No focal deficits, tone is normal in all 4 extremities. Extremities: There is no significant peripheral edema. No clubbing, no cyanosis. Peripheral pulses are intact. Results - Laboratory Findings CBC and BMP: 10/18/16 06:04 10/18/16 06:04 PT/INR, D-dimer PT 13.5 sec (9.0-12.0) H 10/17/16 11:29 INR 1.4 (<1.1) 10/17/16 11:29 Abnormal lab findings: Abnormal Labs 10/17/16 10/18/16 10/18/16 16:52 06:04 06:04 RBC 2.78 L Hgb 8.9 L Hct 28.0 L MCV 100.8 H Lymphocytes # 0.3 L Chloride 110 H Creatinine 1.20 H Total Creatine Kinase 29 L - Diagnostic Findings Chest x-ray: image reviewed Assessment and Plan Plan: Impression: #1 Hypotension and weakness secondary to suspected right lower lobe pneumonia, minimal at best. #2 Chronic obstructive pulmonary disease, currently inactive and stable. #3 Chronic tobacco dependence. #4 Breast cancer with brain metastasis status post right mastectomy and status post radiation therapy to the brain. #5 History of kidney cancer status post right nephrectomy. #6 Recent extensive pulmonary embolism with DVT initiated on Xarelto approximately one month ago. Plan: The patient was seen and evaluated by Dr. Umana. Her chest x-rays and labs were reviewed. Doubt any significant right lower lobe pneumonia. We will continue with her current medicationsn including bronchodilators, Perforomist and Pulmicort inhalations, empiric antibiotics in the form of Zosyn. Continue with Xarelto. She is on Protonix for GI prophylaxis. We will increase her activity as tolerated. We'll continue to follow.
--- NOTE | 2016-10-18 20:55 | P.CONS ---
History of Present Illness - Reason for Consult Consult date: 10/18/16 Metastatic breast cancer - History of Present Illness The pt is a 70 yr old WF, who had presented with a right axillary node in . She was found to have a right breast mass, and had a MRM with node dissection. She was found to have 2 masses in the breast with 14/[address] CAP and bone scan were negative for metastatic disease, but incidentally revealed a rt renal mass, s/o a primary renal cell cancer. She had chemotherapy with Carboplatin, Taxotere and Herceptin, completing that in 11/04. She then had RT to the chest wall, and started Arimidex. She completed herceptin in 07/06. In te interim, she had rt radical nephrectomy, confirming chromophobe renal cell cancer. She presented with brain mets in 07/09, with brain biopsy confirming metastatic breast cancer. She underwent WBRT, and was admitted in 09/10 for weakness reslting from steroid withdrawal. She was also diagnosed with DVT/PE during that admission. She was transferred to [facility] on discharge. She was progressing well with PT, discharge home was anticipated soon. However , she developed severe weakness, quite acutely, and was foud to e hypotensive wit SBP in the 70s. She was therefore sent back to the ER. She was found to have RLL opacities with surrounding small effusion. She was admitted for further management, and consult placed. Review of Systems Constitutional: Reports weakness Eyes: denies blurred vision, denies pain Ears, nose, mouth and throat: Denies headache, Denies sore throat Breasts: right: pain Breasts: Reports as per HPI Cardiovascular: Reports decreased exercise tolerance Respiratory: Denies cough Gastrointestinal: Denies abdominal pain, Denies diarrhea, Denies nausea, Denies vomiting Genitourinary: Reports as per HPI (h/o RCC) Menstruation: Reports postmenopausal Musculoskeletal: Reports muscle weakness (RUE weakness, tingling) Integumentary: Denies pruritus, Denies rash Neurological: Reports as per HPI, Reports motor disturbance (RUE weakness, contracture), Reports numbness Psychiatric: Denies anxiety, Denies depression Endocrine: Reports fatigue Hematologic/Lymphatic: Reports as per HPI Past Medical History Past Medical History: Asthma, Cancer, COPD, GERD/Reflux, Hypertension, Osteoarthritis (OA), Pulmonary Embolus (PE), Renal Disease Additional Past Medical History / Comment(s): breast, Brain, and kidney cancer History of Any Multi-Drug Resistant Organisms: None Reported Past Surgical History: Appendectomy, Cholecystectomy Additional Past Surgical History / Comment(s): RT mastectomy, lymph node removal , R wrist fx repair, right nephrectomy, brain biopsy Past Anesthesia/Blood Transfusion Reactions: No Reported Reaction Past Psychological History: Depression Smoking Status: Former smoker Past Alcohol Use History: Occasional Additional Past Alcohol Use History / Comment(s): quit smoking 1 month, smoked 1 /2-1ppd since mid Past Drug Use History: None Reported - Past Family History Mother Family Medical History: No Reported History Additional Family Medical History / Comment(s): pt adopted no family history known Medications and Allergies Home Medications Medication Instructions Recorded Confirmed Type Cimetidine [Tagamet] 400 mg PO DAILY@0600 05/26/14 10/17/16 History Beclomethasone Dipropionate [Qvar 1 - 2 puff INHALATION RT-BID PRN 06/25/15 History 80 mcg/puff] Multivit with Calcium,Iron,Min 1 tab PO DAILY@0900 06/25/15 10/17/16 History [Women's Daily Multivitamin] Anastrozole [Arimidex] 1 mg PO DAILY@0900 09/04/16 10/17/16 History Dexamethasone 1 mg PO DAILY@0900 10/13/16 10/17/16 History LORazepam [Ativan] 0.5 mg PO BID PRN 10/13/16 10/17/16 History Metoprolol Tartrate [Lopressor] 25 mg PO BID@0900,2100 10/13/16 10/17/16 History Rivaroxaban [Xarelto] 20 mg PO DAILY@0900 10/13/16 10/17/16 History Acetaminophen [Tylenol] 650 mg PO Q4H PRN 10/17/16 10/17/16 History Albuterol Nebulized [Ventolin 2.5 mg INHALATION RT-Q4H PRN 10/17/16 10/17/16 History Nebulized] Albuterol Nebulized [Ventolin 2.5 mg INHALATION RT-QID 10/17/16 10/17/16 History Nebulized] Arginaid Extra Liquid 1 can PO AC-BID@0900,1700 10/17/16 10/17/16 History Docusate [Colace] 100 mg PO HS@2100 10/17/16 10/17/16 History Famotidine [Pepcid] 20 mg PO HS@2100 10/17/16 10/17/16 History Gabapentin [Neurontin] 300 mg PO TID@0900,1300,2100 10/17/16 10/17/16 History HYDROcodone/APAP 7.5-325MG [[place] 1 tab PO Q6H PRN 10/17/16 10/17/16 History 7.5-325] Allergies Allergy/AdvReac Type Severity Reaction Status Date / Time ciprofloxacin HCl Allergy Itching Verified 10/17/16 12:22 [From Cipro] NSAIDS (Non-Steroidal Allergy Rash/Hives Verified 10/17/16 12:22 Anti-Inflamma aripiprazole [From Abilify] AdvReac sleepiness Verified 10/17/16 12:22 Penicillins AdvReac Nausea Verified 10/17/16 12:22 Physical Exam Vitals: Vital Signs Temp Pulse Pulse Resp BP Pulse Ox 10/18/16 18:56 98.9 F 10/18/16 17:00 100.1 F H 94 16 135/80 95 10/18/16 16:44 84 10/18/16 16:30 80 10/18/16 13:09 88 10/18/16 12:54 84 10/18/16 12:00 98.5 F 68 16 87/58 96 10/18/16 09:20 88 10/18/16 09:14 88 10/18/16 09:13 84 10/18/16 09:08 84 18 10/18/16 08:50 98.8 F 97 18 105/64 95 10/18/16 03:32 97 F L 89 18 91/57 98 10/18/16 00:00 82 18 99/57 95 10/17/16 20:00 98.5 F 105 H 18 127/60 96 Intake and Output 10/18/16 10/18/16 10/18/16 06:59 14:59 22:59 Intake Total 850 272 100 Balance 850 272 100 Intake: Intake, IV Titration 850 Amount Piperacillin-Tazobactam 3 50 .375 gm In Dextrose/Water 1 50ml.bag @ 12.5 mls/hr IVPB Q8H [facility] Rx#: [id number] Sodium Chloride 0.9% 1, 800 000 ml @ 100 mls/hr IV . Q10H [facility] Rx#:[id number] Oral 272 100 Other: # Voids 1 1 1 # Bowel Movements 1 Weight 90.2 kg - Constitutional General appearance: no acute distress - EENT Eyes: EOMI, PERRLA ENT: hearing grossly normal, normal oropharynx - Neck Neck: no lymphadenopathy Thyroid: bilateral: normal size - Respiratory Respiratory: right: diminished - Cardiovascular Rhythm: regular Heart sounds: normal: S1, S2 - Gastrointestinal General gastrointestinal: normal bowel sounds, soft - Integumentary Integumentary: normal - Neurologic Neurologic: CNII-XII intact - Musculoskeletal Musculoskeletal: right sided weakness (RUE muscle atrophy, hand contracture) - Psychiatric Psychiatric: A&O x's 3, appropriate affect Results CBC & Chem 7: 10/18/16 06:04 10/18/16 06:04 Labs: Abnormal Lab Results - Last 24 Hours (Table) 10/18/16 10/18/16 Range/Units 06:04 06:04 RBC 2.78 L (3.80-5.40) m/uL Hgb 8.9 L (11.4-16.0) gm/dL Hct 28.0 L (34.0-46.0) % MCV 100.8 H (80.0-100.0) fL Lymphocytes # 0.3 L (1.0-4.8) k/uL Chloride 110 H (98-107) mmol/L Creatinine 1.20 H (0.52-1.04) mg/dL Microbiology - Last 24 Hours (Table) 10/17/16 16:52 Blood Culture - Preliminary Blood No Growth after 24 hours Chest x-ray: report reviewed Assessment and Plan (1) Pneumonia Narrative/Plan: The pt had presented with a sepsis type picture, with hypotension, tachycardia, and overt fever this AM. The RLL infiltrate appears to be the likely source at this time. The pt is actually improved this AM with antibiotics and IV fluids. Cultures are pending so far. Defer to IM, and pulmonary for further management Status: Acute (2) Breast cancer Narrative/Plan: The course is as described. The pt has stage 4 disease with brain mets. She has completed WBRT. CT CAP from 10/13/16 did not show any obvious mets elsewhere. She will f/u with Dr Velez on discharge, Status: Chronic (3) Metastasis to brain Narrative/Plan: The pt was recovering well post WBRT, with PT. Symptoms hve improved markedly. She is almost off her decadron taper at 1 mg/d Status: Acute (4) Anemia Narrative/Plan: Hgb is stable from previous. Check iron studies, given her h/o GIB Status: Acute
[2016-10-18 21:10] LABS: Reticulocyte % 2.5 % (0.5-2.0)
[2016-10-18] MEDS: DOCUSATE 100 MG CAP PO SCH (21:33)
--- NOTE | 2016-10-18 23:01 | PN ---
DATE OF SERVICE: 10/18/2016 I am covering for Dr. Koo. This 70-year-old woman was admitted with acute right lower lobe pneumonia, possibly gram-negative with severe sepsis and septic shock is being closely monitor. The patient also had elevated plasma lactic acid. The patient had some hoarse voice also. Influenza negative. Patient being closely monitored. The patient on broad spectrum IV antibiotics. Dr. Umana evaluation in progress. Past medical history reviewed. REVIEW OF SYSTEMS: CARDIOVASCULAR: No angina or palpitations. RESPIRATORY: As mentioned earlier. GASTROINTESTINAL: No nausea or vomiting. No diarrhea. GENITOURINARY: No dysuria. CENTRAL NERVOUS SYSTEM: No numbness, weakness. Allergy/immunology: No asthma or hayfever. Current medications are reviewed and include: 1. Tylenol 650 q.4. 2. [place] 5 mg q.6h p.r.n. 3. DuoNeb q.i.d. and p.r.n. 4. Arimidex 1 mg p.o. daily. 5. Pulmicort 1 mg b.i.d. 6. Hexadrol 1 milligrams p.o. daily. 7. Colace 100 mg p.o. q.h.s. 8. Folic acid. 9. Perforomist. 10. Neurontin. 11. Dilaudid. 12. Ativan. 13. Lopressor. 14. Protonix. 15. Zosyn. 16. Vitamin B1. PHYSICAL EXAMINATION: The patient is alert and oriented times three. Pulse is 80, blood pressure 87/68, respiratory rate 16, temperature 98.4. Pulse ox 97% on 2 L. HEENT: Conjunctivae normal. Oral mucosa moist. NECK: No jugular venous distention. No carotid bruit. No lymph node enlargement. CARDIOVASCULAR: S1, S2 muffled. No S3, no S4. RESPIRATORY: Breath sounds diminished at the bases. A few scattered rhonchi and crackles, especially in the bases. ABDOMEN: Soft, nontender. No mass palpable. Legs: No edema. No swelling. CENTRAL NERVOUS SYSTEM: Higher functions as mentioned earlier. Moves all four limbs. No focal deficits. LYMPHATICS: No lymph nodes palpable in the neck, axillae or groin. SKIN: No ulcer, rash or bleeding. LABS: WBC 4.5, hemoglobin 8.9. Creatinine is 1.20, influenza is negative. ASSESSMENT: 1. Acute right lower lobe pneumonia, possibly gram-negative with severe sepsis, septic shock and hypotension. 2. Increased plasma lactic acid. 3. Increased creatinine with possibly chronic kidney disease stage III. 4. Anemia, normocytic. 5. Hypoalbuminemia with mild to moderate protein calorie malnutrition. 6. History of breast cancer with brain metastases, status post radiation. 7. History of chronic obstructive pulmonary disease. 8. Gastroesophageal reflux disease. 9. Hypertension. 10. History of degenerative joint disease . 11. History of extensive pulmonary embolism with pulmonary infarction. 12. History of cholecystectomy. 13. History of right mastectomy. 14. History of depression not otherwise specified. 15. Remote history of nicotine dependence. 16. Anemia, normocytic anemia secondary to malignancy. 17. Mild coagulopathy. 18. Chronic obstructive pulmonary disease. 19. History of gastroesophageal reflux disease. 20. NO CODE, NO CPR, NO VENTILATOR. RECOMMENDATIONS AND DISCUSSION: In this 70 -year-old woman who presented with multiple complex medical issues, we will monitor the patient closely. Continue the current medications and continue symptomatic treatment. Otherwise, at this time, I would recommend continue with the bronchodilators, continue with antibiotics. Closely follow with Dr. Umana. Guarded prognosis because of multiple complex medical issues. Further recommendations to follow.
[2016-10-18] MEDS: HYDROcodone/APAP 5-325MG 1 EACH TAB PO PRN (23:38)
[2016-10-19] MEDS: PIPERACILLIN-TAZOBACTAM 3.375 GM in DEXTROSE/WATER 1 50ML.BAG IVPB SCH ×3 (04:53→19:55)
[2016-10-19] MEDS: PANTOPRAZOLE 40 MG TABLET PO SCH (06:31)
[2016-10-19] MEDS: SODIUM CHLORIDE 0.9% 1,000 ML IV SCH ×2 (06:31→16:32)
[2016-10-19 06:38] LABS: % Iron Saturation 11.6 % (20-50)
[2016-10-19 06:57] LABS: Basophils % (A) 1 %; CH 30.4; Eosinophils % (A) 1 %; HDW 2.96; Hypochromasia Marked; Luc # (Auto) 0.06; Luc % (Auto) 3; Lymphocytes # (A) 0.1 k/uL (1.0-4.8); Lymphocytes % (A) 8 %; MCH 31.4 pg (25.0-35.0); MCHC 30.9 g/dL (31.0-37.0); MCV 101.8 fL (80.0-100.0); Macrocytosis Slight; Mean Platelet Volume 6.6; Monocytes # (A) 0.1 k/uL (0-1.0); Monocytes % (A) 4 %; Neutrophils # (A) 1.5 k/uL (1.3-7.7); Neutrophils % (A) 83 %; RBC 2.56 m/uL (3.80-5.40); RDW 15.3 % (11.5-15.5)
[2016-10-19 07:19] LABS: WBC 1.8 k/uL (3.8-10.6)
[2016-10-19] MEDS: FORMOTEROL FUMARATE 20 MCG/2 ML NEBU INHALATION SCH ×2 (08:45→21:23)
[2016-10-19] MEDS: IPRATROPIUM-ALBUTEROL 3 ML NEB INHALATION SCH ×4 (08:45→21:23)
[2016-10-19] MEDS: BUDESONIDE 1 MG/2 ML NEBU INHALATION SCH ×2 (08:45→21:22)
[2016-10-19] MEDS: DEXAMETHASONE 0.5 MG TAB PO SCH (08:47)
[2016-10-19] MEDS: RIVAROXABAN 10 MG TAB PO SCH (08:47)
[2016-10-19] MEDS: GABAPENTIN 300 MG CAP PO SCH ×3 (08:47→21:10)
[2016-10-19] MEDS: ANASTROZOLE 1 MG TAB PO SCH (08:47)
[2016-10-19] MEDS: METOPROLOL TARTRATE 25 MG TAB PO SCH ×2 (08:47→21:04)
[2016-10-19 08:55] LABS: Calcium 8.8 mg/dL (8.4-10.2); Potassium 3.8 mmol/L (3.5-5.1)
[2016-10-19] MEDS: ACETAMINOPHEN TAB 325 MG TAB PO PRN (08:56)
--- NOTE | 2016-10-19 11:20 | P.PN ---
Subjective Patient resting in bed states she has some improvement from yesterday Objective - Vital Signs Vital signs: Vital Signs Temp 100.7 F H 10/19/16 08:00 Pulse 96 10/19/16 09:08 Resp 20 10/19/16 08:00 BP 90/55 10/19/16 08:00 Pulse Ox 96 10/19/16 08:47 Intake & Output 10/18/16 10/19/16 10/19/16 18:59 06:59 18:59 Intake Total 372 400 100 Output Total 0 Balance 372 400 100 Weight 91.5 kg Intake: Intake, IV Titration 400 Amount Sodium Chloride 0.9% 1, 400 000 ml @ 100 mls/hr IV . Q10H ED[facility] Rx#:[id number] Oral 372 100 Output: Urine 0 Other: # Voids 1 1 # Bowel Movements 1 - Constitutional General appearance: Present: morbidly obese - EENT Eyes: Present: PERRLA Ears: bilateral: normal - Neck Neck: Present: normal ROM - Respiratory Respiratory: bilateral: diminished - Cardiovascular Rhythm: regular - Integumentary Integumentary: Present: normal - Neurologic Neurologic: Present: CNII-XII intact - Musculoskeletal Musculoskeletal: Present: generalized weakness - Psychiatric Psychiatric: Present: A&O x's 3, appropriate affect, intact judgment & insight - Labs CBC & Chem 7: 10/19/16 06:11 10/19/16 06:11 Labs: Abnormal Lab Results - Last 24 Hours (Table) 10/18/16 10/18/16 10/19/16 Range/Units 06:04 06:04 06:11 WBC 1.8 L* (3.8-10.6) k/uL RBC 2.56 L (3.80-5.40) m/uL Hgb 8.0 L (11.4-16.0) gm/dL Hct 26.0 L (34.0-46.0) % MCV 101.8 H (80.0-100.0) fL MCHC 30.9 L (31.0-37.0) g/dL Lymphocytes # 0.1 L (1.0-4.8) k/uL Retic Count 2.5 H (0.5-2.0) % Chloride 110 H (98-107) mmol/L Carbon Dioxide (22-30) mmol/L Creatinine 1.20 H (0.52-1.04) mg/dL Iron 31 L (37-170) ug/dL % Saturation 11.6 L (20-50) % 10/19/16 Range/Units 06:11 WBC (3.8-10.6) k/uL RBC (3.80-5.40) m/uL Hgb (11.4-16.0) gm/dL Hct (34.0-46.0) % MCV (80.0-100.0) fL MCHC (31.0-37.0) g/dL Lymphocytes # (1.0-4.8) k/uL Retic Count (0.5-2.0) % Chloride 113 H (98-107) mmol/L Carbon Dioxide 20 L (22-30) mmol/L Creatinine 1.16 H (0.52-1.04) mg/dL Iron (37-170) ug/dL % Saturation (20-50) % Microbiology - Last 24 Hours (Table) 10/17/16 16:52 Blood Culture - Preliminary Blood No Growth after 24 hours - Imaging and Cardiology Chest x-ray: report reviewed Assessment and Plan Plan: Assessment Acute right lower lobe pneumonia with septic shock and hypotension Chronic kidney disease stage III Chronic anemia normocytic History of breast cancer with metastatic brain lesions History of chronic COPD GERD Hypertension History of pulmonary embolism with pulmonary infarct History of right mastectomy History of depression No code no CPR no ventilator Plan Continue consultation with pulmonology and oncology Patient on antibiotics Zosyn and bronchodilators Patient has been living at [facility] would like to return to her home
--- NOTE | 2016-10-19 12:04 | P.PN ---
Subjective Progress note dated 10/11/2016 70-year-old female sees Dr. Ronnell Koo as her primary doctor. Has a history of underlying COPD. Heavy smoker in the past. 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 Also has a history of breast cancer, status post right mastectomy with metastases to the brain. Also with a history of kidney cancer or hypernephroma, status post right nephrectomy. The patient presented to the emergency department with complaints of increasing weakness. She apparently was found to be hypotensive. She was admitted to the sixth floor. The patient is well enough to be discharged down to the fourth or fifth floor. Her respiratory status has improved. Her blood pressures much better. We lifted her yesterday and did not think she has significant pulmonary process such as pneumonia. Denies any significant cough or phlegm production at the current time. Objective - Vital Signs Vital signs: Vital Signs Temp 100.7 F H 10/19/16 08:00 Pulse 94 10/19/16 11:54 Resp 20 10/19/16 08:00 BP 90/55 10/19/16 08:00 Pulse Ox 96 10/19/16 08:47 Intake & Output 10/18/16 10/19/16 10/19/16 18:59 06:59 18:59 Intake Total 372 400 100 Output Total 0 Balance 372 400 100 Weight 91.5 kg Intake: Intake, IV Titration 400 Amount Sodium Chloride 0.9% 1, 400 000 ml @ 100 mls/hr IV . Q10H EDISON Rx#:[id number] Oral 372 100 Output: Urine 0 Other: # Voids 1 1 # Bowel Movements 1 - Exam No acute distress, oriented 3. HEENT examination is grossly unremarkable. Membranes are moist. Neck supple. Full range of motion. No adenopathy. Cardio vascular examination reveals regular rhythm rate. S1-S2 normal. No murmur. Heart rate in the mid 80s. Lungs reveal few scattered rhonchi. No wheezes or crackles. Abdomen soft Extremities are intact - Labs CBC & Chem 7: 10/19/16 06:11 10/19/16 06:11 Labs: Abnormal Lab Results - Last 24 Hours (Table) 10/18/16 10/18/16 10/19/16 Range/Units 06:04 06:04 06:11 WBC 1.8 L* (3.8-10.6) k/uL RBC 2.56 L (3.80-5.40) m/uL Hgb 8.0 L (11.4-16.0) gm/dL Hct 26.0 L (34.0-46.0) % MCV 101.8 H (80.0-100.0) fL MCHC 30.9 L (31.0-37.0) g/dL Lymphocytes # 0.1 L (1.0-4.8) k/uL Retic Count 2.5 H (0.5-2.0) % Chloride 110 H (98-107) mmol/L Carbon Dioxide (22-30) mmol/L Creatinine 1.20 H (0.52-1.04) mg/dL Iron 31 L (37-170) ug/dL % Saturation 11.6 L (20-50) % 10/19/16 Range/Units 06:11 WBC (3.8-10.6) k/uL RBC (3.80-5.40) m/uL Hgb (11.4-16.0) gm/dL Hct (34.0-46.0) % MCV (80.0-100.0) fL MCHC (31.0-37.0) g/dL Lymphocytes # (1.0-4.8) k/uL Retic Count (0.5-2.0) % Chloride 113 H (98-107) mmol/L Carbon Dioxide 20 L (22-30) mmol/L Creatinine 1.16 H (0.52-1.04) mg/dL Iron (37-170) ug/dL % Saturation (20-50) % Microbiology - Last 24 Hours (Table) 10/17/16 16:52 Blood Culture - Preliminary Blood No Growth after 24 hours Assessment and Plan (1) Anemia Status: Acute (2) Hypotension Status: Acute (3) Pneumonia Status: Acute (4) DVT (deep venous thrombosis) Status: Acute (5) Metastasis to brain Status: Acute (6) Pneumonia Status: Acute (7) Pulmonary embolism and infarction Status: Acute (8) Weakness Status: Acute (9) Breast cancer Status: Chronic Plan: Plan dated 10/19/2016 The patient seems stable for discharge office for. She has significant medical problems including breast cancer hypernephroma COPD chronic tobacco use and a history of recent DVT and pulmonary embolism. Her admission with primarily for weakness and hypotension which is resolved. The patient's chest x-ray was not very impressive. Time with Patient: Less than 30
[2016-10-19] MEDS: THIAMINE 100 MG TAB PO SCH (12:18)
[2016-10-19] MEDS: FOLIC ACID 1 MG TAB PO SCH (12:18)
[2016-10-19] MEDS: MULTIVITAMINS, THERA 1 EACH TAB PO SCH (12:18)
[2016-10-19] MEDS: DOCUSATE 100 MG CAP PO SCH (21:10)
[2016-10-20] MEDS: SODIUM CHLORIDE 0.9% 1,000 ML IV SCH ×2 (02:37→12:19)
[2016-10-20] MEDS: HYDROcodone/APAP 5-325MG 1 EACH TAB PO PRN (02:39)
[2016-10-20] MEDS: PIPERACILLIN-TAZOBACTAM 3.375 GM in DEXTROSE/WATER 1 50ML.BAG IVPB SCH ×2 (03:20→12:10)
[2016-10-20 07:56] VITALS: BP 107/59; RESP 17; TEMP 98.2
[2016-10-20 07:56] LABS: Aty Lym Flag Slight; CH 31.3; CHCM 32.3; HDW 3.21; HGB 8.8 gm/dL (11.4-16.0); Hypochromasia Slight; MCH 31.5 pg (25.0-35.0); MCHC 32.4 g/dL (31.0-37.0); MCV 97.2 fL (80.0-100.0); Mean Platelet Volume 8.2; RBC 2.78 m/uL (3.80-5.40); RDW 15.3 % (11.5-15.5); WBC 2.1 k/uL (3.8-10.6); WBC (Perox) 2.31
[2016-10-20 08:21] LABS: Potassium 3.9 mmol/L (3.5-5.1)
[2016-10-20 08:27] LABS: Add Differential Manual Differential
[2016-10-20 08:31] LABS: Manual Review Performed; Nucleated Red Blood Cells 0 /100 WBC (0-0); Total Cells Counted 100
[2016-10-20] MEDS: IPRATROPIUM-ALBUTEROL 3 ML NEB INHALATION SCH ×2 (08:46→14:04)
[2016-10-20] MEDS: FORMOTEROL FUMARATE 20 MCG/2 ML NEBU INHALATION SCH (08:46)
[2016-10-20] MEDS: BUDESONIDE 1 MG/2 ML NEBU INHALATION SCH (08:46)
[2016-10-20 09:00] VITALS: PULSE 88
[2016-10-20] MEDS: GABAPENTIN 300 MG CAP PO SCH ×2 (09:13→12:19)
[2016-10-20] MEDS: PANTOPRAZOLE 40 MG TABLET PO SCH (09:13)
[2016-10-20] MEDS: ANASTROZOLE 1 MG TAB PO SCH (09:13)
[2016-10-20] MEDS: RIVAROXABAN 10 MG TAB PO SCH (09:13)
[2016-10-20] MEDS: DEXAMETHASONE 0.5 MG TAB PO SCH (09:13)
[2016-10-20] MEDS: METOPROLOL TARTRATE 25 MG TAB PO SCH (09:14)
--- NOTE | 2016-10-20 10:36 | P.PN ---
Subjective Progress note dated 10/11/2016 70-year-old female sees Dr. Ronnell Koo as her primary doctor. Has a history of underlying COPD. Heavy smoker in the past. 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 Also has a history of breast cancer, status post right mastectomy with metastases to the brain. Also with a history of kidney cancer or hypernephroma, status post right nephrectomy. The patient presented to the emergency department with complaints of increasing weakness. She apparently was found to be hypotensive. She was admitted to the sixth floor. The patient is well enough to be discharged down to the fourth or fifth floor. Her respiratory status has improved. Her blood pressures much better. We lifted her yesterday and did not think she has significant pulmonary process such as pneumonia. Denies any significant cough or phlegm production at the current time. Progress note dated 10/20/2016 This is a 70-year-old female who sees Dr. Quiana Koo is her primary. She has a history of underlying COPD hypertension DVT DJD and breast cancer. She's doing relatively well. She status post right mastectomy. She has brain metastases. Blood pressure still a bit low. From the pulmonary standpoint doing very well. From our perspective could be discharged home. Not requiring any oxygen therapy. No respiratory issues. No difficulty breathing. We are never impressed that she had actual pneumonia. Objective - Vital Signs Vital signs: Vital Signs Temp 98.2 F 10/20/16 07:00 Pulse 88 10/20/16 09:13 Resp 17 10/20/16 07:00 BP 107/59 10/20/16 07:00 Pulse Ox 94 L 10/20/16 07:00 Intake & Output 10/19/16 10/20/16 10/20/16 18:59 06:59 18:59 Intake Total 730 50 Output Total 0 Balance 730 50 Intake: Oral 730 50 Output: Urine 0 Other: # Voids 0 1 # Bowel Movements 1 - Exam No acute distress, oriented 3. HEENT examination is grossly unremarkable. Membranes are moist. Neck supple. Full range of motion. No adenopathy. Cardio vascular examination reveals regular rhythm rate. S1-S2 normal. No murmur. Heart rate in the mid 80s. Lungs reveal few scattered rhonchi. No wheezes or crackles. Abdomen soft Extremities are intact - Labs CBC & Chem 7: 10/20/16 07:04 10/20/16 07:04 Labs: Abnormal Lab Results - Last 24 Hours (Table) 10/20/16 10/20/16 Range/Units 07:04 07:04 WBC 2.1 L (3.8-10.6) k/uL RBC 2.78 L (3.80-5.40) m/uL Hgb 8.8 L (11.4-16.0) gm/dL Hct 27.0 L (34.0-46.0) % Lymphocytes # (Manual) 0.2 L (1.0-4.8) k/uL Chloride 115 H (98-107) mmol/L Carbon Dioxide 20 L (22-30) mmol/L Creatinine 1.16 H (0.52-1.04) mg/dL Microbiology - Last 24 Hours (Table) 10/17/16 16:52 Blood Culture - Preliminary Blood No Growth after 48 hours Assessment and Plan (1) Anemia Status: Acute (2) Hypotension Status: Acute (3) Pneumonia Status: Acute (4) DVT (deep venous thrombosis) Status: Acute (5) Metastasis to brain Status: Acute (6) Pneumonia Status: Acute (7) Pulmonary embolism and infarction Status: Acute (8) Weakness Status: Acute (9) Breast cancer Status: Chronic Plan: Plan dated 10/19/2016 The patient seems stable for discharge office for. She has significant medical problems including breast cancer hypernephroma COPD chronic tobacco use and a history of recent DVT and pulmonary embolism. Her admission with primarily for weakness and hypotension which is resolved. The patient's chest x-ray was not very impressive. Plan dated 10/20/2016 The patient is doing well. No respiratory issues. Not requiring any supplemental oxygen. She has a history of multiple medical problems including breast cancer previous right mastectomy hypernephroma COPD chronic tobacco use brain metastases DVT pulmonary embolism. The patient is still a bit hypotensive. Will likely be discharged the next day or so. From the pulmonary standpoint no additional recommendations will be made at this point. We'll see as needed. Medications x-rays and labs are all reviewed. Time with Patient: Less than 30
--- NOTE | 2016-10-20 11:43 | P.DS ---
Providers Date of admission: 10/17/16 13:46 Expected date of discharge: 10/20/16 Attending physician: Ronnell Koo Consults: 10/17/16 18:14 Consult Physician Routine Consulting Provider: Maria Guadalupe Sanchez Consult Reason/Comments: pneumonia Do you want consulting provider notified?: Yes Primary care physician: Ronnell Koo [facility] Hospital Course: 70-year-old female presented to the emergency room with complaints of increasing shortness of breath chest x-ray indicated the right lower lobe pneumonia. Patient has history of breast cancer with metastatic disease to the brain. Patient was evaluated by pulmonology Dr. Umana and also by oncology. Patient is been cleared for discharge home patient was treated with bronchodilators and antibiotics. Assessment right lower lobe pneumonia chronic kidney disease stage III anemia of chronic disease normocytic history of breast cancer with brain metastasis history of COPD history of GERD hypertension history of pulmonary embolism history of right meniscectomy patients no code Plan discharge some with follow up with Dr. Sonia Kaiser Patient Condition at Discharge: Fair Plan - Discharge Summary New Discharge Prescriptions: Budesonide-Formot 160-4.5 Mcg [Symbicort 160-4.5 Mcg Inhaler] 2 puff INHALATION RT-BID #1 puff Discharge Medication List Cimetidine [Tagamet] 400 mg PO DAILY@0600 05/26/14 [History] Beclomethasone Dipropionate [Qvar 80 mcg/puff] 1 - 2 puff INHALATION RT-BID PRN 06/25/15 [History] Multivit with Calcium,Iron,Min [Women's Daily Multivitamin] 1 tab PO DAILY@0906/25/15 [History] Anastrozole [Arimidex] 1 mg PO DAILY@0909/04/16 [History] Dexamethasone 1 mg PO DAILY@0910/13/16 [History] LORazepam [Ativan] 0.5 mg PO BID PRN 10/13/16 [History] Metoprolol Tartrate [Lopressor] 25 mg PO BID@0900,2100 10/13/16 [History] Rivaroxaban [Xarelto] 20 mg PO DAILY@0900 10/13/16 [History] Acetaminophen [Tylenol] 650 mg PO Q4H PRN 10/17/16 [History] Albuterol Nebulized [Ventolin Nebulized] 2.5 mg INHALATION RT-Q4H PRN 10/17/16 [ History] Albuterol Nebulized [Ventolin Nebulized] 2.5 mg INHALATION RT-QID 10/17/16 [ History] Arginaid Extra Liquid 1 can PO AC-BID@0900,1700 10/17/16 [History] Docusate [Colace] 100 mg PO HS@2100 10/17/16 [History] Gabapentin [Neurontin] 300 mg PO TID@0900,1300,209910/17/16 [History] HYDROcodone/APAP 7.5-325MG [[place] 7.5-325] 1 tab PO Q6H PRN 10/17/16 [History] Budesonide-Formot 160-4.5 Mcg [Symbicort 160-4.5 Mcg Inhaler] 2 puff INHALATION RT-BID #1 puff 10/20/16 [Rx] Folic Acid 1 mg PO DAILY@1200 tab 10/20/16 [Rx] Thiamine [Vitamin B-1] 100 mg PO DAILY@1200 tab 10/20/16 [Rx] Follow up Appointment(s)/Referral(s): Ronenll Koo MD [Primary Care Provider] - 1-2 days
[2016-10-20] MEDS: THIAMINE 100 MG TAB PO SCH (12:19)
[2016-10-20] MEDS: MULTIVITAMINS, THERA 1 EACH TAB PO SCH (12:19)
[2016-10-20] MEDS: FOLIC ACID 1 MG TAB PO SCH (12:19)
[2016-10-20] MEDS ORDERED: SYMBICORT 160-4.5 MCG INHALER INHALATION SCH (20:00)
== END 2016-10-20 14:55 | disposition home or self-care (01) | DRG 871 ==
LOC: EC 10:50 → 6SEL 13:46 → 5ONC 10-19 15:28
PROVIDERS: ADMIT Family Medicine; ATTEND Family Medicine
DX: A41.9 Sepsis, unspecified organism (principal); J15.6 Pneumonia due to other Gram-negative bacteria; R65.21 Severe sepsis with septic shock; C79.31 Secondary malignant neoplasm of brain; J90 Pleural effusion, not elsewhere classified; D68.9 Coagulation defect, unspecified; E44.0 Moderate protein-calorie malnutrition; J44.0 Chronic obstructive pulmonary disease with (acute) lower respiratory infection; Z66 Do not resuscitate; N18.3 Chronic kidney disease, stage 3 (moderate); D63.0 Anemia in neoplastic disease; I12.9 Hypertensive chronic kidney disease with stage 1 through stage 4 chronic kidney disease, or unspecified chronic kidney disease; K21.9 Gastro-esophageal reflux disease without esophagitis; M19.91 Primary osteoarthritis, unspecified site; J45.909 Unspecified asthma, uncomplicated; F32.9 Major depressive disorder, single episode, unspecified; Z87.891 Personal history of nicotine dependence; Z86.711 Personal history of pulmonary embolism; Z86.718 Personal history of other venous thrombosis and embolism; Z90.49 Acquired absence of other specified parts of digestive tract; Z90.11 Acquired absence of right breast and nipple; Z92.3 Personal history of irradiation; Z92.21 Personal history of antineoplastic chemotherapy; Z88.6 Allergy status to analgesic agent; Z88.1 Allergy status to other antibiotic agents; Z88.0 Allergy status to penicillin; Z88.8 Allergy status to other drugs, medicaments and biological substances; Z90.5 Acquired absence of kidney; Z85.528 Personal history of other malignant neoplasm of kidney; Z85.3 Personal history of malignant neoplasm of breast; Z79.811 Long term (current) use of aromatase inhibitors; Z79.01 Long term (current) use of anticoagulants; Z79.899 Other long term (current) drug therapy
CPT/HCPCS: 36415; 71020; 80048; 80053; 81001; 82533; 82550; 82553; 82728; 83540; 83550; 83605; 84484; 85025; 85045; 85610; 85730; 87040; 87086; 87502; 93005; 94640; 94760; 96361; 96365; 99285

== ENCOUNTER 2016-10-22 12:51 | Inpatient (IN) | payer MEDICARE, OTHER ==
--- NOTE | 2016-10-22 13:18 | US ---
EXAMINATION TYPE: US venous doppler duplex LE DATE OF EXAM: 10/22/2016 12:14 PM COMPARISON: prior us in pacs with left leg dvt CLINICAL HISTORY: Niko Lower, Unilat Upper Left, Edema Ext R60.0. prior left leg dvt, pt currently on thinners since Jul 2016, very sob SIDE PERFORMED: bilateral VESSELS IMAGED: External Iliac Vein (EIV) Common Femoral Vein Deep Femoral Vein Greater Saphenous Vein * Femoral Vein Popliteal Vein Small Saphenous Vein * Proximal Calf Veins (* superficial vessels) Right Leg: Negative for DVT Left Leg: Negative for DVT Results called to Nkechi in the office at the time of the exam. IMPRESSION: 1. No diagnostic evidence of DVT
--- NOTE | 2016-10-22 13:22 | US ---
EXAMINATION TYPE: US venous doppler duplex UE LT DATE OF EXAM: 10/22/2016 12:33 PM COMPARISON: NONE CLINICAL HISTORY: Unilat Upper Left, Edema Ext R60.0. left arm pain and swelling, history of PEs, cu rrently on thinners SIDE PERFORMED: left Left Arm: there is non-occlusive thrombus seen within the left IJV, subclavian, axilla, brachial and basilic vns. Results called to Nkechi in the office at the time of the exam. Patient to be assessed through our E R. IMPRESSION: There is DVT within the left internal jugular vein, subclavian vein, axillary vein and brachial vein
[2016-10-22] MEDS ORDERED: IPRATROPIUM-ALBUTEROL 3 ML NEB INHALATION STA (14:55)
--- NOTE | 2016-10-22 15:03 | ED ---
General Adult HPI - General Source: patient, family Mode of arrival: ambulatory Limitations: no limitations <Jonatan Saleh - Last Filed: 10/22/16 14:51> <Aristeo Valdez - Last Filed: 10/22/16 16:08> - General Chief complaint: Extremity Injury, Upper Time Seen by Provider: 10/22/16 14:38 - History of Present Illness Initial comments: 70-year-old female patient presents to emergency department today after having an outpatient ultrasound of her left upper extremity in her bilateral lower extremities. Patient was found to have a DVT in the left internal jugular vein , subclavian vein, axillary vein and brachial vein. Patient states that she presented to her doctor for evaluation of left arm swelling that started last Tuesday while she was inpatient for low blood pressures. She states that the swelling in her arm and the worsening throughout the week. Patient has past medical history significant for breast cancer with metastases to the brain. Patient did complete radiation and has a follow-up MRI on November 01. Patient also has a past medical history significant for pulmonary embolism has been taking Xarelto since July for this. Patient states she has been taking her anticoagulant as directed except for one day and which she did not have her prescription. Patient denies any abnormal shortness of breath, chest pain, palpitations, weakness, dizziness, abdominal pain, constipation, diarrhea, hematuria, dysuria, urinary urgency, or urinary frequency. She denies any fever or chills. She denies any numbness or tingling to the extremity. (Jonatan Saleh) - Related Data Home Medications Medication Instructions Recorded Confirmed Cimetidine [Tagamet] 400 mg PO DAILY@0605/26/14 10/22/16 Beclomethasone Dipropionate [Qvar 1 - 2 puff INHALATION RT-BID PRN 06/25/15 80 mcg/puff] Multivit with Calcium,Iron,Min 1 tab PO DAILY@89906/25/15 10/22/16 [Women's Daily Multivitamin] Anastrozole [Arimidex] 1 mg PO DAILY@89909/04/16 10/22/16 Dexamethasone 1 mg PO DAILY@89910/13/16 10/22/16 LORazepam [Ativan] 0.5 mg PO BID PRN 10/13/16 10/22/16 Metoprolol Tartrate [Lopressor] 25 mg PO BID@0900,2100 10/13/16 10/22/16 Rivaroxaban [Xarelto] 20 mg PO DAILY@0900 10/13/16 10/22/16 Acetaminophen [Tylenol] 650 mg PO Q4H PRN 10/17/16 10/22/16 Albuterol Nebulized [Ventolin 2.5 mg INHALATION RT-Q4H PRN 10/17/16 10/22/16 Nebulized] Albuterol Nebulized [Ventolin 2.5 mg INHALATION RT-QID 10/17/16 10/22/16 Nebulized] Arginaid Extra Liquid 1 can PO AC-BID@0900,1700 10/17/16 10/22/16 Docusate [Colace] 100 mg PO HS@2100 10/17/16 10/22/16 Gabapentin [Neurontin] 300 mg PO TID@0900,1300,2100 10/17/16 10/22/16 HYDROcodone/APAP 7.5-325MG [[place] 1 tab PO Q6H PRN 10/17/16 10/22/16 7.5-325] Previous Rx's Medication Instructions Recorded Budesonide-Formot 160-4.5 Mcg 2 puff INHALATION RT-BID #1 puff 10/20/16 [Symbicort 160-4.5 Mcg Inhaler] Folic Acid 1 mg PO DAILY@1200 tab 10/20/16 Thiamine [Vitamin B-1] 100 mg PO DAILY@1200 tab 10/20/16 Allergies Allergy/AdvReac Type Severity Reaction Status Date / Time ciprofloxacin HCl Allergy Itching Verified 10/22/16 14:18 [From Cipro] NSAIDS (Non-Steroidal Allergy Rash/Hives Verified 10/22/16 14:18 Anti-Inflamma aripiprazole [From Abilify] AdvReac sleepiness Verified 10/22/16 14:18 Penicillins AdvReac Nausea Verified 10/22/16 14:18 Review of Systems ROS Other: All systems not noted in ROS Statement are negative. <Jonatan Saleh - Last Filed: 10/22/16 14:51> ROS Other: All systems not noted in ROS Statement are negative. <Aristeo Valdez - Last Filed: 10/22/16 16:08> ROS Statement: Those systems with pertinent positive or pertinent negative responses have been documented in the HPI. Past Medical History Past Medical History: Asthma, Cancer, COPD, GERD/Reflux, Hypertension, Osteoarthritis (OA), Pulmonary Embolus (PE), Renal Disease Additional Past Medical History / Comment(s): breast, Brain, and kidney cancer History of Any Multi-Drug Resistant Organisms: None Reported Past Surgical History: Appendectomy, Cholecystectomy Additional Past Surgical History / Comment(s): RT mastectomy, lymph node removal , R wrist fx repair, right nephrectomy, brain biopsy Past Anesthesia/Blood Transfusion Reactions: No Reported Reaction Past Psychological History: Depression Smoking Status: Former smoker Past Alcohol Use History: Occasional Additional Past Alcohol Use History / Comment(s): quit smoking 1 month, smoked 1 /2-1ppd since mid Past Drug Use History: None Reported - Past Family History Mother Family Medical History: No Reported History Additional Family Medical History / Comment(s): pt adopted no family history known <Jonatan Saleh - Last Filed: 10/22/16 14:51> General Exam Limitations: no limitations General appearance: alert, in no apparent distress Head exam: Present: atraumatic, normocephalic, normal inspection Eye exam: Present: normal appearance, PERRL, EOMI. Absent: scleral icterus, conjunctival injection, periorbital swelling ENT exam: Present: normal exam, normal oropharynx, mucous membranes moist Neck exam: Present: normal inspection. Absent: tenderness, meningismus, lymphadenopathy Respiratory exam: Present: normal lung sounds bilaterally. Absent: respiratory distress, wheezes, rales, rhonchi, stridor Cardiovascular Exam: Present: regular rate, normal rhythm, normal heart sounds. Absent: systolic murmur, diastolic murmur, rubs, gallop, clicks GI/Abdominal exam: Present: soft, normal bowel sounds. Absent: distended, tenderness, guarding, rebound, rigid Extremities exam: Present: other (Left upper extremity edema, 2+ pitting. Left radial pulse intact 2+. Skin pale, warm, dry. Bilateral lower extremity edema , pedal edema 2+ pitting.) Back exam: Present: normal inspection Neurological exam: Present: alert, oriented X3, CN II-XII intact Psychiatric exam: Present: normal affect, normal mood Skin exam: Present: warm, dry, intact, pallor. Absent: rash <Jonatan Saleh Last Filed: 10/22/16 14:51> General appearance: alert, in no apparent distress Head exam: Present: atraumatic, normocephalic, normal inspection Eye exam: Present: normal appearance, PERRL, EOMI. Absent: scleral icterus, conjunctival injection, periorbital swelling ENT exam: Present: normal exam, mucous membranes moist Neck exam: Present: normal inspection. Absent: tenderness, meningismus, lymphadenopathy Respiratory exam: Present: normal lung sounds bilaterally. Absent: respiratory distress, wheezes, rales, rhonchi, stridor Cardiovascular Exam: Present: regular rate, normal rhythm, normal heart sounds. Absent: systolic murmur, diastolic murmur, rubs, gallop, clicks GI/Abdominal exam: Present: soft, normal bowel sounds. Absent: distended, tenderness, guarding, rebound, rigid Extremities exam: Present: normal inspection, full ROM, normal capillary refill. Absent: tenderness, pedal edema, joint swelling, calf tenderness Back exam: Present: normal inspection Neurological exam: Present: alert, oriented X3, CN II-XII intact Psychiatric exam: Present: normal affect, normal mood Skin exam: Present: warm, dry, intact, normal color. Absent: rash <Aristeo Valdez - Last Filed: 10/22/16 16:08> Course <Jonatan Saleh - Last Filed: 10/22/16 14:51> <Aristeo Valdez - Last Filed: 10/22/16 16:08> Vital Signs 10/22/16 10/22/16 10/22/16 13:06 15:25 15:34 Temperature 97.4 F L Pulse Rate 103 H 100 100 Respiratory 20 Rate Blood Pressure 135/76 O2 Sat by Pulse 99 Oximetry - Reevaluation(s) Reevaluation #1: 10/22/16 16:07 Patient does have positive DVT on Xarelto (Aristeo Valdez) Medical Decision Making <Jonatan Saleh - Last Filed: 10/22/16 14:51> - Lab Data Result diagrams: 10/22/16 15:18 10/22/16 15:18 <Aristeo Valdez - Last Filed: 10/22/16 16:08> - Medical Decision Making 62 female here for evaluation of extremity swelling and pain. Patient does have some positive for DVT, will be admitted to continue anticoagulation and further evaluation (Aristeo Valdez) - Lab Data Lab Results 10/22/16 10/22/16 10/22/16 Range/Units 15:18 15:18 15:18 WBC 2.7 L (3.8-10.6) k/uL RBC 2.68 L (3.80-5.40) m/uL Hgb 8.0 L (11.4-16.0) gm/dL Hct 26.1 L (34.0-46.0) % MCV 97.6 (80.0-100.0) fL MCH 30.1 (25.0-35.0) pg MCHC 30.8 L (31.0-37.0) g/dL RDW 15.3 (11.5-15.5) % Plt Count 291 (150-450) k/uL Neutrophils % 73 % Lymphocytes % 20 % Monocytes % 3 % Eosinophils % 0 % Basophils % 0 % Neutrophils # 1.9 (1.3-7.7) k/uL Lymphocytes # 0.5 L (1.0-4.8) k/uL Monocytes # 0.1 (0-1.0) k/uL Eosinophils # 0.0 (0-0.7) k/uL Basophils # 0.0 (0-0.2) k/uL Hypochromasia Slight PT 10.7 (9.0-12.0) sec INR 1.1 (<1.1) APTT 22.9 (22.0-30.0) sec Sodium 138 (137-145) mmol/L Potassium 4.0 (3.5-5.1) mmol/L Chloride 113 H (98-107) mmol/L Carbon Dioxide 22 (22-30) mmol/L Anion Gap 3 mmol/L BUN 11 (7-17) mg/dL Creatinine 1.10 H (0.52-1.04) mg/dL Est GFR (MDRD) Af Amer 60 (>60 ml/min/1.73 sqM) Est GFR (MDRD) Non-Af 49 (>60 ml/min/1.73 sqM) Glucose 106 H (74-99) mg/dL Calcium 9.4 (8.4-10.2) mg/dL Total Bilirubin 0.4 (0.2-1.3) mg/dL AST 66 H (14-36) U/L ALT 97 H (9-52) U/L Alkaline Phosphatase 56 (38-126) U/L Total Protein 5.3 L (6.3-8.2) g/dL Albumin 3.0 L (3.5-5.0) g/dL Disposition <Jonatan Saleh - Last Filed: 10/22/16 14:51> <Aristeo Valdez - Last Filed: 10/22/16 16:08> Clinical Impression: Breast cancer, DVT (deep venous thrombosis) Disposition: ADMITTED IP TO THIS HOSP Condition: Fair Referrals: Ronnell Koo MD [Primary Care Provider] - 1-2 days
[2016-10-22 15:27] LABS: Basophils % (A) 0 %; CHCM 31.9; Eosinophils % (A) 0 %; HCT 26.1 % (34.0-46.0); HDW 3.31; Hypochromasia Slight; Luc # (Auto) 0.11; Luc % (Auto) 4; Lymphocytes # (A) 0.5 k/uL (1.0-4.8); Lymphocytes % (A) 20 %; MCH 30.1 pg (25.0-35.0); MCHC 30.8 g/dL (31.0-37.0); MCV 97.6 fL (80.0-100.0); Mean Platelet Volume 7.8; Monocytes # (A) 0.1 k/uL (0-1.0); Monocytes % (A) 3 %; Neutrophils # (A) 1.9 k/uL (1.3-7.7); Neutrophils % (A) 73 %; RBC 2.68 m/uL (3.80-5.40); RDW 15.3 % (11.5-15.5); WBC 2.7 k/uL (3.8-10.6); WBC (Perox) 2.78
[2016-10-22 15:35] LABS: Calcium 9.4 mg/dL (8.4-10.2); Total Bilirubin 0.4 mg/dL (0.2-1.3); Total Protein 5.3 g/dL (6.3-8.2)
[2016-10-22 15:36] LABS: INR 1.1 (<1.1); Partial Thromboplastin Time 22.9 sec (22.0-30.0); Prothrombin Time 10.7 sec (9.0-12.0)
[2016-10-22] MEDS ORDERED: NALOXONE 0.4 MG/ML 1 ML VIAL IV PRN (16:10)
[2016-10-22] MEDS ORDERED: ACETAMINOPHEN TAB 325 MG TAB PO PRN (16:10)
[2016-10-22] MEDS ORDERED: LORazepam 0.5 MG TAB PO PRN (16:12)
[2016-10-22] MEDS ORDERED: ALBUTEROL NEBULIZED 2.5 MG/3 ML INHALATION PRN (16:12)
[2016-10-22] MEDS ORDERED: BECLOMETHASONE DIP 80 MCG/PUFF INHALER INHALATION SCH (16:15)
[2016-10-22] MEDS ORDERED: BUDESONIDE 1 MG/2 ML NEBU INHALATION STA (16:20)
[2016-10-22] MEDS ORDERED: [UNRECOGNIZED DRUG - OTHER] PO SCH (17:00)
[2016-10-22] MEDS: DOCUSATE 100 MG CAP PO SCH (20:30)
[2016-10-22] MEDS: GABAPENTIN 300 MG CAP PO SCH (20:30)
[2016-10-22] MEDS: METOPROLOL TARTRATE 25 MG TAB PO SCH (20:30)
[2016-10-22] MEDS: SYMBICORT 160-4.5 MCG INHALER INHALATION SCH (21:13)
[2016-10-22] MEDS: ALBUTEROL NEBULIZED 2.5 MG/3 ML INHALATION SCH (21:13)
[2016-10-22] MEDS: HYDROcodone/APAP 7.5-325MG 1 EACH TAB PO PRN (23:50)
[2016-10-23] MEDS: FAMOTIDINE 20 MG TAB PO SCH (05:43)
[2016-10-23] MEDS ORDERED: HEPARIN SODIUM,PORCINE 10,000 UNIT/ML 1 ML VIAL IV ONE (08:15)
[2016-10-23] MEDS ORDERED: HEPARIN SODIUM,PORCINE 5,000 UNIT/ML 1 ML VIAL IV PRN (08:15)
[2016-10-23] MEDS ORDERED: RIVAROXABAN 10 MG TAB PO SCH (09:00)
[2016-10-23] MEDS: GABAPENTIN 300 MG CAP PO SCH ×3 (09:16→21:53)
[2016-10-23] MEDS: METOPROLOL TARTRATE 25 MG TAB PO SCH ×2 (09:16→21:53)
[2016-10-23] MEDS: DEXAMETHASONE 4 MG TAB PO SCH (09:17)
[2016-10-23] MEDS: ANASTROZOLE 1 MG TAB PO SCH (09:17)
[2016-10-23] MEDS: ALBUTEROL NEBULIZED 2.5 MG/3 ML INHALATION SCH ×4 (09:30→19:32)
[2016-10-23 10:06] LABS: HDW 3.29; HGB 8.1 gm/dL (11.4-16.0); Hypochromasia Slight; MCH 30.3 pg (25.0-35.0); MCHC 31.1 g/dL (31.0-37.0); MCV 97.4 fL (80.0-100.0); RBC 2.67 m/uL (3.80-5.40); RDW 15.5 % (11.5-15.5); WBC (Perox) 2.79
[2016-10-23 10:11] LABS: INR 1.1 (<1.1); Prothrombin Time 10.8 sec (9.0-12.0)
[2016-10-23 10:18] LABS: Partial Thromboplastin Time 22.1 sec (22.0-30.0)
[2016-10-23] MEDS: HEPARIN SODIUM,PORCINE/D5W PMX 25,000 UNIT in DEXTROSE/WATER 1 500ML.BAG IV SCH ×2 (10:25→19:47)
[2016-10-23] MEDS: FOLIC ACID 1 MG TAB PO SCH (10:37)
[2016-10-23] MEDS: THIAMINE 100 MG TAB PO SCH (10:37)
[2016-10-23 10:48] LABS: Add Differential Manual Differential
[2016-10-23 10:50] LABS: Nucleated Red Blood Cells 0 /100 WBC (0-0); Total Cells Counted 100
[2016-10-23 10:51] LABS: Manual Review Performed
[2016-10-23] MEDS: SYMBICORT 160-4.5 MCG INHALER INHALATION SCH ×3 (10:57→19:32)
--- NOTE | 2016-10-23 14:56 | P.GSCN ---
History of Present Illness Consult date: 10/23/16 Reason for Consult: left arm DVT History of present illness: impression; 0. extensive left arm DVT without evidence of phlegmasia 1. Stage IV breast cancer with brain metastasis; patient recently underwent brain biopsy in 07/2016 and radiation therapy to her head; s/p MRM right breast with axiallary dissection 2011 2. s/p placement of left subclavian mediport; this was removed in 2012 3. personal history of left leg DVT with pulmonary embolism 07/2016; patient has been maintained on rivaroxaban since 4. renal cell carcinoma; s/p right nephrectomy 2012 5. nicotine dependence in remission 6. obesity 7. pneumonia with admission approximately 10 days ago; patient noted left hand edema at that time plan; 1. enoxaperin 1mg/kg sq BID x 6 months if OK with heme/onc; then re-evaluate 2. continue arm elevation 3. patient is not a candidate for thrombolysis at this time HPI; Very pleasant 70 y/o woman with history of stage IV breast Ca with metastasis to brain; recently completed course of radiation to the brain. Noted to be hypotensive 2 weeks ago; was admitted and treated for pneumonia. Noticed that her left hand was swollen approximately one week ago while admitted for pneumonia; swelling of hand became worse and involved left arm. Admitted in July 2016 for left leg DVT with massive PE; treated with xarelto since then. Patient has been compliant with meds. Remote history of GI bleed. Had a mediport placed at time of treatment for breast cancer (required chemotherapy, radiation, MRM). Location on chest wall suggest left subclavian vein as entry point. Denies any other thromboembolic episodes. Denies a history of sudden onset of facial edema and neck edema; her face has become edematous gradually with the use of steroids for treatment of her breast Ca. CMHx; nicotine dependence in remission, Stage IV breast CA, renal cell carcinoma, morbid obesity, anemia, pneumonia, GERD, COPD PSHx; cholectystectomy, appendenctomy, right nephrectomy, thyroid surgery, right modified radical mastectomy, ORIF right wrist fracture Habits; 35 pack year history of smoking; stopped one year ago, no EtOH, no drugs FHX; unobtainable; patient was adopted. PE: HEENT: normocephalic, well-healed biopsy incision in right temporal area, no carotid bruits, no JVD, healed right supraclavicular inciison, no thyromegaly or lymphadenopathy, "kingsley facies" as a result of steroid use; no evidence of superior vena cava syndrome THORAX; no evidence of engorged veins on anterior chest wall suggestive of superior vena cava syndrome Lungs; clear anteriorly Heart; RRR, normal S1 and S2 ABD obese; well-healed right upper quadrant incision, no hernas noted EXTR; femoral, popliteal, dorsalis pedis are palpable bilaterally; posterior tibial pulses are not; 1+ pitting edema from knees to feet, no evidence of chronic venous insufficiency; left arm demonstrates palpable left brachial and radial pulses; pitting edema from hand to shoulder; no evidence of phlegmasia Duplex of the left upper extremity demonstrates extensive thrombosis involving the left subclavian, axillary, brachial and internal jugular veins. Venous duplex of the lower extremities demonstrates no evidence of deep venous thrombosis bilaterally. impression/plan 1. acute on chronic left subclavian, axillary, brachial and internal jugular DVT as a result of hypercoagulable state from malignancy and past mediport placement in the left brachiocepahlc vein. 2. mets to the brain would change anticoagulation regimen to enoxaperin 1mg/kg sq BID x 6 months in light of acute onset DVT and re-evaluate thereafter if OK with heme/onc arm elevation no role for thrombolysis or surgical intervention at this point thanks for consult Past Medical History Past Medical History: Asthma, Cancer, COPD, Deep Vein Thrombosis (DVT), GERD/ Reflux, Hypertension, Osteoarthritis (OA), Pulmonary Embolus (PE), Renal Disease Additional Past Medical History / Comment(s): RT breast,-SX AND 10 RADIATION [place] , Brain , and RT kidney cancer. PT STATED SHE IS RT SIDE DOMINANT BUT D/T BRAIN METS HAS PROBLEMS AT TIMES WITH LOSS OF CONTROL SO EATING AND WRITING DIFFICULT-HAS SPECIAL UTENSILS AT HOME.PT UNSURE OF DARTES ON VACCINES History of Any Multi-Drug Resistant Organisms: None Reported Past Surgical History: Appendectomy, Cholecystectomy Additional Past Surgical History / Comment(s): RT mastectomy-"25 LYMPH NODES REMOVED AND 15 WERE POSITIVE FOR CANCER" , R wrist fx repair, right nephrectomy , brain biopsy, TUBES IN EARS Past Anesthesia/Blood Transfusion Reactions: No Reported Reaction Past Psychological History: Depression Additional Psychological History / Comment(s): AT TIME OF THIS ADMIT PT DENIES ANY PROBLEM WITH DEPRESSION, NO THOUGHTS OF WANTING TO OR HARMING SELF.JUST FRUSTRATED BECAUSE SHE HAS DIFFICULTY DOING THINGS HERSELF AT THIS TIME. PT IS LIVES IN HOME WITH SPOUSE ,5 DOGS-HAS 6 STEPS INTO HOME .STATED "RUNS A ROOM AND BOARD- HAS 2 RENTERS", PT USES A 4 WHEELED WALKER, HAS A SHOWER CHAIR, BSC, RAILING FOR STEPS. NO OUTSIDE SERVICES Smoking Status: Former smoker Past Alcohol Use History: Rare Additional Past Alcohol Use History / Comment(s): STARTED SMOKING 1967, QUIT 2015, SMOKED 1/2-1 PPD. Past Drug Use History: None Reported - Past Family History Mother Family Medical History: No Reported History Additional Family Medical History / Comment(s): pt adopted no family history known Medications and Allergies Home Medications Medication Instructions Recorded Confirmed Type Cimetidine [Tagamet] 400 mg PO DAILY@0600 05/26/14 10/22/16 History Beclomethasone Dipropionate [Qvar 1 - 2 puff INHALATION RT-BID PRN 06/25/15 History 80 mcg/puff] Multivit with Calcium,Iron,Min 1 tab PO DAILY@0900 06/25/15 10/22/16 History [Women's Daily Multivitamin] Anastrozole [Arimidex] 1 mg PO DAILY@0900 09/04/16 10/22/16 History Dexamethasone 1 mg PO DAILY@0900 10/13/16 10/22/16 History LORazepam [Ativan] 0.5 mg PO BID PRN 10/13/16 10/22/16 History Metoprolol Tartrate [Lopressor] 25 mg PO BID@0900,2100 10/13/16 10/22/16 History Rivaroxaban [Xarelto] 20 mg PO DAILY@0900 10/13/16 10/22/16 History Acetaminophen [Tylenol] 650 mg PO Q4H PRN 10/17/16 10/22/16 History Albuterol Nebulized [Ventolin 2.5 mg INHALATION RT-Q4H PRN 10/17/16 10/22/16 History Nebulized] Albuterol Nebulized [Ventolin 2.5 mg INHALATION RT-QID 10/17/16 10/22/16 History Nebulized] Arginaid Extra Liquid 1 can PO AC-BID@0900,1700 10/17/16 10/22/16 History Docusate [Colace] 100 mg PO HS@2100 10/17/16 10/22/16 History Gabapentin [Neurontin] 300 mg PO TID@0900,1300,2100 10/17/16 10/22/16 History HYDROcodone/APAP 7.5-325MG [[place] 1 tab PO Q6H PRN 10/17/16 10/22/16 History 7.5-325] Allergies Allergy/AdvReac Type Severity Reaction Status Date / Time ciprofloxacin HCl Allergy Itching Verified 10/22/16 14:18 [From Cipro] NSAIDS (Non-Steroidal Allergy Rash/Hives Verified 10/22/16 14:18 Anti-Inflamma aripiprazole [From Abilify] AdvReac sleepiness Verified 10/22/16 14:18 Penicillins AdvReac Nausea Verified 10/22/16 14:18 Surgical - Exam Vital Signs Temp Pulse Resp BP Pulse Ox 97.4 F L 103 H 20 135/76 99 10/22/16 13:06 10/22/16 13:06 10/22/16 13:06 10/22/16 13:06 10/22/16 13:06 Results - Labs 10/23/16 09:53 10/22/16 15:18 Abnormal Lab Results - Last 24 Hours (Table) 10/23/16 Range/Units 09:53 WBC 3.0 L (3.8-10.6) k/uL RBC 2.67 L (3.80-5.40) m/uL Hgb 8.1 L (11.4-16.0) gm/dL Hct 26.0 L (34.0-46.0) %
--- NOTE | 2016-10-23 19:15 | HP ---
DATE OF ADMISSION: 10/22/2016 CHIEF COMPLAINT: Left arm swelling. HISTORY OF PRESENT ILLNESS: This 70-year-old woman with a past medical history of multiple medical problems including asthma, COPD, history of DVT, history of pulmonary embolism, history of hypertension, DJD, history of breast cancer with brain metastases, on radiation, history of depression, being followed by Dr. Ronnell Koo in the outpatient setting was recently admitted with pneumonia and hypertension and multiple other medical problems. The patient went home and currently the patient is having swelling and discomfort over the left arm which is increasing in intensity. The patient had an outpatient evaluation also. The patient admitted to the ER. The patient had extensive DVT of the left system into the left subclavian and as well as left internal jugular subclavian and axillary and vein and the patient was admitted to the hospital for further evaluation and treatment. Evaluation by Dr. Browne is in progress at this time as well as Dr. Ceja. Please note, the patient is taking apparently on Xarelto, indicating this could be Xarelto failure. The patient is mildly confused, able to give sketchy history at this time. There is no history of fever, rigors or chills. No history of headache, loss of consciousness or seizures. PAST MEDICAL HISTORY: 1. History of chronic obstructive pulmonary disease/asthma. 2. History of breast cancer with brain METS. 3. History of DVT. 4. Gastroesophageal reflux disease. 5. Hypertension. 6. History of DJD. 7. Pulmonary embolism. 8. Appendectomy. 9. Cholecystectomy. Medications prior to admission include home medications are: 1. Colace 100 mg p.o. 2. Vitmain B1 100 mg p.o. daily. 3. Xarelto 20 mg daily. 4. Multivitamins one p.o. daily. 5. Lopressor 25 mg b.i.d. 6. Ativan 0.5 mg b.i.d. p.r.n. 7. [place] 7.5 q.6h p.r.n. 8. Neurontin 300 mg p.o. daily. 9. Folic acid 1 mg daily. 10. Dexamethasone 1 mg p.o. daily. 11. Tagamet 400 mg p.o. daily. 12. Symbicort 160/4.5 2 puffs b.i.d. 15. Arimidex 1 mg daily. 16. Ventolin 2.5 q.i.d. and q.4 p.r.n. 17. Tylenol 650 q6h p.r.n. ALLERGIES: CIPRO, NSAIDS, ABILIFY AND PENICILLIN. FAMILY HISTORY: Patient adopted, unable to obtain the family history. SOCIAL HISTORY: Previous history of smoking. Occasional alcohol. REVIEW OF SYSTEMS: ENT: No diminishing hearing. Diminished vision. CARDIOVASCULAR: No angina or palpitations. RESPIRATORY: As mentioned earlier. GI: As mentioned earlier. : No dysuria. Nervous system: No numbness, weakness. Allergy/immunology: No asthma or hayfever. MUSCULOSKELETAL: As mentioned earlier. DERMATOLOGY: Negative. ENDOCRINE: As mentioned earlier. CONSTITUTIONAL: As mentioned earlier. RHEUMATOLOGY: Negative. PSYCHIATRY: As mentioned earlier. PHYSICAL EXAMINATION: Alert and oriented times two. Pulse 84, blood pressure 120/74, respirations 18, temperature 98.9, pulse ox 93% on room air. HEENT: Conjunctivae normal. Oral mucosa moist. NECK: No jugular venous distention. No carotid bruit. No lymph node enlargement. CARDIOVASCULAR: S1, S2 muffled. No S3, no S4. RESPIRATORY: Breath sounds diminished at the bases, a few scattered rhonchi and crackles. Expiratory wheezing also present. ABDOMEN: Soft, nontender. No mass palpable. Legs: No edema. No swelling. Nervous system: Higher functions as mentioned earlier. Moves all four limbs. No focal motor or sensory deficits. LYMPHATICS: No lymph nodes palpable in the neck, axillae or groin. SKIN: No ulcer, rash or bleeding. Examination of the left arm, significant swelling and lymphedema also present. Pitting in the edema present left arm. No tenderness or erythema. LABS: WBC 3.1, hemoglobin 8.1, platelets are normal. Glucose 106. AST 66, ALT 97. ASSESSMENT: 1. Acute deep venous thrombosis of the left arm involving left internal jugular subclavian axillary and brachial vein. 2. Stage IV breast cancer with brain metastases. 3. Xarelto failure possibly. 4. History of recent right lower lobe pneumonia with sepsis, septic shock and hypertension, multiple other complications. 5. Change in mental status metabolic encephalopathy, acute on chronic multifactorial. 6. Anemia, leukopenia. 7. Bicytopenia secondary from malignancy. 8. Increased AST, ALT, possibly hepatitis. 9. Increased creatinine with mild acute renal failure, possible prerenal acute tubular necrosis. 10. History of asthma, chronic obstructive pulmonary disease. 11. History of deep venous thrombosis. 12. History of pulmonary embolism. 13. History of gastroesophageal reflux disease. 14. Hypertension. 15. History of degenerative joint disease. 16. History of right breast cancer with brain metastases as mentioned earlier. 17. Appendectomy. 18. Cholecystectomy. 19. History of depression. 20. Remote history of nicotine dependence. 21. FULL CODE. 22. Obesity body mass index of 34.1. 23. Gait dysfunction. RECOMMENDATIONS AND DISCUSSION: In this 70-year-old woman who presented with multiple complex medical issues, we will monitor the patient closely. Continue the current medications. Continue symptomatic treatment. Lovenox will be initiated. Vascular and hematology/oncology consultations. The patient might indicate Xarelto failure. Otherwise, continue the rest of the medications. Guarded prognosis because of multiple complex medical issues. Further recommendations to follow. A copy of dictation is being forwarded to Dr. Ronnell Koo who is the primary physician. Once again, the patient will be discharged in stable condition with guarded prognosis. MANUELD
[2016-10-23] MEDS: DOCUSATE 100 MG CAP PO SCH (21:53)
[2016-10-23] MEDS: HYDROcodone/APAP 7.5-325MG 1 EACH TAB PO PRN (23:02)
[2016-10-24 02:42] LABS: Aty Lym Flag Slight; CHCM 30.3; HCT 24.9 % (34.0-46.0); HDW 3.22; HGB 7.9 gm/dL (11.4-16.0); Hypochromasia Marked; MCH 31.5 pg (25.0-35.0); MCHC 31.7 g/dL (31.0-37.0); MCV 99.4 fL (80.0-100.0); Macrocytosis Slight; Mean Platelet Volume 7.3; RBC 2.51 m/uL (3.80-5.40); RDW 15.2 % (11.5-15.5); WBC (Perox) 3.15
[2016-10-24 02:57] LABS: ALT 78 U/L (9-52); AST 47 U/L (14-36); Alkaline Phosphatase 55 U/L (38-126); Anion Gap 8 mmol/L; Blood Urea Nitrogen 11 mg/dL (7-17); Carbon Dioxide 22 mmol/L (22-30); Chloride 114 mmol/L (98-107); Glucose 85 mg/dL (74-99); Non-African American GFR(MDRD) 55 (>60 ml/min/1.73 sqM); Potassium 3.7 mmol/L (3.5-5.1); Sodium 144 mmol/L (137-145); Total Bilirubin 0.5 mg/dL (0.2-1.3); Total Protein 4.8 g/dL (6.3-8.2)
[2016-10-24 03:40] LABS: Add Differential Manual Differential
[2016-10-24 03:42] LABS: Manual Review Performed; Nucleated Red Blood Cells 0 /100 WBC (0-0); Total Cells Counted 100
[2016-10-24] MEDS: FAMOTIDINE 20 MG TAB PO SCH (05:27)
[2016-10-24] MEDS: HEPARIN SODIUM,PORCINE/D5W PMX 25,000 UNIT in DEXTROSE/WATER 1 500ML.BAG IV SCH (05:28)
[2016-10-24] MEDS: DEXAMETHASONE 4 MG TAB PO SCH (07:21)
[2016-10-24] MEDS: FOLIC ACID 1 MG TAB PO SCH (07:21)
[2016-10-24] MEDS: ANASTROZOLE 1 MG TAB PO SCH (07:21)
[2016-10-24] MEDS: THIAMINE 100 MG TAB PO SCH (07:21)
[2016-10-24] MEDS: GABAPENTIN 300 MG CAP PO SCH ×3 (07:21→22:26)
[2016-10-24] MEDS: METOPROLOL TARTRATE 25 MG TAB PO SCH ×2 (07:26→22:26)
[2016-10-24] MEDS: ALBUTEROL NEBULIZED 2.5 MG/3 ML INHALATION SCH ×4 (07:36→19:26)
[2016-10-24] MEDS: SYMBICORT 160-4.5 MCG INHALER INHALATION SCH ×2 (07:36→19:26)
[2016-10-24] MEDS: HYDROcodone/APAP 7.5-325MG 1 EACH TAB PO PRN ×2 (12:05→17:28)
--- NOTE | 2016-10-24 17:40 | PN ---
DATE OF SERVICE: 10/24/2016 This is a 70-year-old woman who was admitted with acute DVT of left arm, significant swelling and pain of the left upper limb also. The patient was started on IV heparin. The patient had stage IV breast cancer with brain mets also. The patient also might indicate Xarelto failure Dr. Browne is following the patient closely. PAST MEDICAL HISTORY: Reviewed. REVIEW OF SYSTEMS: CARDIOVASCULAR: No angina or palpitation. RESPIRATORY: As mentioned earlier. GI: As mentioned earlier. : No dysuria or hematuria. MUSCULOSKELETAL: As mentioned earlier. CURRENT MEDICATIONS: 1. Heparin drip. 2. Tylenol 650 q.6, p.r.n. 3. [place] 7.5 q.6 p.r.n. 4. Albuterol nebulizer q.i.d. 5. Arimidex 1 mg daily. 6. Symbicort 160/4.5 b.i.d. 7. Hexadrol 1 mg daily. 8. Colace 100 mg q.h.s. 9. Pepcid 20 mg daily. 10. Folic acid 1 mg. 11. Neurontin 300 mg q.i.d. 12. Heparin subQ p.r.n. IV heparin. 13. Ativan 0.5 mg b.i.d. 14. Lopressor 25 mg b.i.d. 15. Narcan 0.2 q.2 p.r.n. 16. Vitamin B1 one hundred mg p.o. daily. PHYSICAL EXAM: Patient is alert and oriented x3. Pulse is 88, blood pressure 130/73, respirations 16, temperature 98.4. Pulse ox 93% on room air. HEENT: Conjunctivae normal. NECK: No jugular venous distension. CARDIOVASCULAR SYSTEM: S1, S2, muffled. RESPIRATORY: Breath sounds diminished at the bases. A few scattered rhonchi, no crackles. Abdomen is soft, nontender. EXTREMITIES: Legs no edema. No swelling. NERVOUS SYSTEM: No focal distension, left arm significant swelling present. LABS: WBC is 3, hemoglobin is 7.9 and APTT noted. The AST, ALT is also noted. ASSESSMENT: 1. Acute deep venous thrombosis of the left arm involving the left intrajugular as well as subclavian axillary and brachial vein on the left side. 2. Stage IV breast cancer with brain metastases. 3. Possibly Xarelto failure. 4. History of recent right lower lobe pneumonia with sepsis, septic shock and hypotension with multiple complications. 5. Change in mental status, metabolic encephalopathy, acute on chronic, multifactorial. 6. Anemia, leukopenia, and cytopenia secondary from malignancy. 7. Increased AST, ALT, possibly hepatitis. 8. Increased creatinine with mild acute renal failure, possibly prerenal, acute tubular necrosis. 9. History of asthma, chronic obstructive pulmonary disease. 10. History of deep venous thrombosis. 11. History of pulmonary embolisms. 12. History of gastroesophageal reflux disease. 13. History of hypertension. 14. History of degenerative joint disease. 15. History of right breast cancer with brain metastases and as mentioned earlier. 16. History of appendectomy and history of cholecystectomy. 17. History of depression. 18. Remote history of nicotine dependence. 19. Obesity, body mass index of 34.1. 20. Gait dysfunction. 21. FULL CODE. RECOMMENDATION: Recommend to continue with the current medication. Continue with the IV heparin, Lovenox may be an option as long-term. Otherwise will repeat labs. Monitor closely, PT, OT evaluation and Social Work will evaluate for the home situation. Prognosis guarded because of multiple complex medical issues. Further recommendations to follow.
[2016-10-24] MEDS: DOCUSATE 100 MG CAP PO SCH (22:26)
[2016-10-25] MEDS: HEPARIN SODIUM,PORCINE/D5W PMX 25,000 UNIT in DEXTROSE/WATER 1 500ML.BAG IV SCH (01:26)
[2016-10-25] MEDS: FAMOTIDINE 20 MG TAB PO SCH (06:00)
[2016-10-25] MEDS: ALBUTEROL NEBULIZED 2.5 MG/3 ML INHALATION SCH ×4 (07:34→21:26)
[2016-10-25] MEDS: SYMBICORT 160-4.5 MCG INHALER INHALATION SCH ×2 (07:34→21:26)
[2016-10-25] MEDS: ANASTROZOLE 1 MG TAB PO SCH (08:02)
[2016-10-25] MEDS: DEXAMETHASONE 4 MG TAB PO SCH (08:02)
[2016-10-25] MEDS: GABAPENTIN 300 MG CAP PO SCH ×3 (08:03→21:11)
[2016-10-25] MEDS: METOPROLOL TARTRATE 25 MG TAB PO SCH ×2 (08:03→21:11)
[2016-10-25 08:07] LABS: ALT 64 U/L (9-52); AST 34 U/L (14-36); Alkaline Phosphatase 57 U/L (38-126); Anion Gap 8 mmol/L; Blood Urea Nitrogen 8 mg/dL (7-17); Calcium 9.2 mg/dL (8.4-10.2); Carbon Dioxide 24 mmol/L (22-30); Chloride 112 mmol/L (98-107); Glucose 83 mg/dL (74-99); Non-African American GFR(MDRD) 56 (>60 ml/min/1.73 sqM); Potassium 3.7 mmol/L (3.5-5.1); Sodium 144 mmol/L (137-145); Total Bilirubin 0.6 mg/dL (0.2-1.3); Total Protein 4.9 g/dL (6.3-8.2)
[2016-10-25 08:10] LABS: Basophils % (A) 1 %; CHCM 29.5; Eosinophils # (A) 0.1 k/uL (0-0.7); Eosinophils % (A) 3 %; HCT 28.1 % (34.0-46.0); HDW 3.05; HGB 8.6 gm/dL (11.4-16.0); Hypochromasia Marked; Luc # (Auto) 0.15; Luc % (Auto) 4; Lymphocytes % (A) 28 %; MCH 31.1 pg (25.0-35.0); MCHC 30.5 g/dL (31.0-37.0); MCV 101.9 fL (80.0-100.0); Macrocytosis Slight; Mean Platelet Volume 7.4; Monocytes # (A) 0.3 k/uL (0-1.0); Monocytes % (A) 10 %; Neutrophils # (A) 1.8 k/uL (1.3-7.7); Neutrophils % (A) 54 %; RBC 2.76 m/uL (3.80-5.40); RDW 15.3 % (11.5-15.5); WBC 3.4 k/uL (3.8-10.6); WBC (Perox) 3.46
[2016-10-25] MEDS: THIAMINE 100 MG TAB PO SCH (11:50)
[2016-10-25] MEDS: FOLIC ACID 1 MG TAB PO SCH (11:50)
[2016-10-25] MEDS: ENOXAPARIN 100 MG/ML SYRINGE SQ SCH (16:23)
--- NOTE | 2016-10-25 16:24 | P.CONS ---
History of Present Illness - Reason for Consult Consult date: 10/25/16 breast cancer Requesting physician: Michelle Marte - Chief Complaint LUE swelling, DVT - History of Present Illness Mrs. Rocha is a very pleasant 70-year-old female patient of Dr. Velez who was just recently admitted October 17 for pneumonia. Patient was hospitalized in August for weakness resulting from steroid withdrawal status post whole brain radiation therapy. During the Aug admission patient was diagnosed with PE and and left lower extremity common femoral DVT, was started on Xarelto. Patient states that she was seeing her primary care physician Dr. Koo, she had left upper extremity swelling that was progressive over several days. Patient was sent in for Doppler and found to have DVT in the left internal jugular, subclavian, axillary and brachial veins. Patient had Doppler performed of bilateral lower extremities with no DVT noted. Patient does not recall missing any doses of Xarelto, she states that she is taking it as prescribed. She states that she has been feeling very well, she denies any headaches, dizziness, vision changes, appetite is decent, no nausea, cough, shortness of breath, chest pain, acute changes in bowel or bladder habits or bleeding. She is due next week for follow up MRI of the brain to evaluate treatment of brain metastases, appt soon after with Dr. Mckeon, she is also due to follow up with Dr. Velez in the next 2 weeks. Review of Systems All systems: negative Constitutional: Reports as per HPI Past Medical History Past Medical History: Asthma, Cancer, COPD, Deep Vein Thrombosis (DVT), GERD/ Reflux, Hypertension, Osteoarthritis (OA), Pulmonary Embolus (PE), Renal Disease Additional Past Medical History / Comment(s): RT breast,-SX AND 10 RADIATION [place] , Brain , and RT kidney cancer. PT STATED SHE IS RT SIDE DOMINANT BUT D/T BRAIN METS HAS PROBLEMS AT TIMES WITH LOSS OF CONTROL SO EATING AND WRITING DIFFICULT-HAS SPECIAL UTENSILS AT HOME.PT UNSURE OF DARTES ON VACCINES History of Any Multi-Drug Resistant Organisms: None Reported Past Surgical History: Appendectomy, Cholecystectomy Additional Past Surgical History / Comment(s): RT mastectomy-"25 LYMPH NODES REMOVED AND 15 WERE POSITIVE FOR CANCER" , R wrist fx repair, right nephrectomy , brain biopsy, TUBES IN EARS Past Anesthesia/Blood Transfusion Reactions: No Reported Reaction Past Psychological History: Depression Additional Psychological History / Comment(s): AT TIME OF THIS ADMIT PT DENIES ANY PROBLEM WITH DEPRESSION, NO THOUGHTS OF WANTING TO OR HARMING SELF.JUST FRUSTRATED BECAUSE SHE HAS DIFFICULTY DOING THINGS HERSELF AT THIS TIME. PT IS LIVES IN HOME WITH SPOUSE ,5 DOGS-HAS 6 STEPS INTO HOME .STATED "RUNS A ROOM AND BOARD- HAS 2 RENTERS", PT USES A 4 WHEELED WALKER, HAS A SHOWER CHAIR, BSC, RAILING FOR STEPS. NO OUTSIDE SERVICES Smoking Status: Former smoker Past Alcohol Use History: Rare Additional Past Alcohol Use History / Comment(s): STARTED SMOKING 1967, QUIT 2015, SMOKED 1/2-1 PPD. Past Drug Use History: None Reported - Past Family History Mother Family Medical History: No Reported History Additional Family Medical History / Comment(s): pt adopted no family history known Medications and Allergies Home Medications Medication Instructions Recorded Confirmed Type Cimetidine [Tagamet] 400 mg PO DAILY@0600 05/26/14 10/22/16 History Beclomethasone Dipropionate [Qvar 1 - 2 puff INHALATION RT-BID PRN 06/25/15 History 80 mcg/puff] Multivit with Calcium,Iron,Min 1 tab PO DAILY@0900 06/25/15 10/22/16 History [Women's Daily Multivitamin] Anastrozole [Arimidex] 1 mg PO DAILY@0900 09/04/16 10/22/16 History Dexamethasone 1 mg PO DAILY@0900 10/13/16 10/22/16 History LORazepam [Ativan] 0.5 mg PO BID PRN 10/13/16 10/22/16 History Metoprolol Tartrate [Lopressor] 25 mg PO BID@0900,2100 10/13/16 10/22/16 History Acetaminophen [Tylenol] 650 mg PO Q4H PRN 10/17/16 10/22/16 History Albuterol Nebulized [Ventolin 2.5 mg INHALATION RT-Q4H PRN 10/17/16 10/22/16 History Nebulized] Albuterol Nebulized [Ventolin 2.5 mg INHALATION RT-QID 10/17/16 10/22/16 History Nebulized] Arginaid Extra Liquid 1 can PO AC-BID@0900,1700 10/17/16 10/22/16 History Docusate [Colace] 100 mg PO HS@2100 10/17/16 10/22/16 History Gabapentin [Neurontin] 300 mg PO TID@0900,1300,2100 10/17/16 10/22/16 History HYDROcodone/APAP 7.5-325MG [[place] 1 tab PO Q6H PRN 10/17/16 10/22/16 History 7.5-325] Allergies Allergy/AdvReac Type Severity Reaction Status Date / Time ciprofloxacin HCl Allergy Itching Verified 10/22/16 14:18 [From Cipro] NSAIDS (Non-Steroidal Allergy Rash/Hives Verified 10/22/16 14:18 Anti-Inflamma aripiprazole [From Abilify] AdvReac sleepiness Verified 10/22/16 14:18 Penicillins AdvReac Nausea Verified 10/22/16 14:18 Physical Exam Vitals: Vital Signs Temp Pulse Pulse Pulse Resp BP Pulse Ox 10/25/16 15:00 98.4 F 102 H 16 163/89 93 L 10/25/16 11:47 88 10/25/16 11:39 90 10/25/16 08:00 91 16 10/25/16 07:51 96 10/25/16 07:37 94 10/25/16 07:00 98.6 F 91 16 135/70 96 10/24/16 23:00 98.7 F 97 16 132/71 92 L 10/24/16 19:28 84 10/24/16 16:00 88 18 Intake and Output 10/25/16 10/25/16 10/25/16 06:59 14:59 22:59 Intake Total 340.642 413.817 Balance 340.642 413.817 Intake: Intake, IV Titration 90.642 163.817 Amount Heparin Sodium,Porcine/ 90.642 163.817 D5w Pmx 25,000 unit In Dextrose/Water 1 500ml. bag @ 18 UNITS/KG/HR 33. 44 mls/hr IV .[id number] [facility] Rx#:[id number] Oral 250 250 Other: Voiding Method Toilet Toilet # Voids 1 2 Weight 92.896 kg Patient Weight 10/26/16 06:59 Weight 92.896 kg - Constitutional General appearance: cooperative, no acute distress, obese - EENT Eyes: anicteric sclerae, EOMI, PERRLA, normal appearance ENT: normal oropharynx - Neck Neck: no lymphadenopathy - Respiratory Respiratory: bilateral: CTA - Cardiovascular left upper extremity swelling, improved per patient and nursing staff. Heart sounds: normal: S1, S2 leg Peripheral Edema: bilateral: Trace - Gastrointestinal General gastrointestinal: no absent bowel sounds, no decreased bowel sounds, no distended, no hepatomegaly, no hyperactive bowel sounds, normal bowel sounds, no organomegaly, no rigid, no scaphoid, soft, no splenomegaly, no tenderness, no umbilical hernia, no ventral hernia - Integumentary Integumentary: normal, pale - Neurologic Neurologic: focal deficits - Musculoskeletal Musculoskeletal: generalized weakness - Psychiatric Psychiatric: A&O x's 3, appropriate affect, intact judgment & insight Results CBC & Chem 7: 10/25/16 07:07 10/25/16 07:07 Labs: Abnormal Lab Results - Last 24 Hours (Table) 10/24/16 10/25/16 10/25/16 Range/Units 19:54 07:07 07:07 WBC 3.4 L (3.8-10.6) k/uL RBC 2.76 L (3.80-5.40) m/uL Hgb 8.6 L (11.4-16.0) gm/dL Hct 28.1 L (34.0-46.0) % MCV 101.9 H (80.0-100.0) fL MCHC 30.5 L (31.0-37.0) g/dL APTT 65.8 H (22.0-30.0) sec Chloride 112 H (98-107) mmol/L ALT 64 H (9-52) U/L Total Protein 4.9 L (6.3-8.2) g/dL Albumin 2.6 L (3.5-5.0) g/dL 10/25/16 Range/Units 07:07 WBC (3.8-10.6) k/uL RBC (3.80-5.40) m/uL Hgb (11.4-16.0) gm/dL Hct (34.0-46.0) % MCV (80.0-100.0) fL MCHC (31.0-37.0) g/dL APTT 62.2 H (22.0-30.0) sec Chloride (98-107) mmol/L ALT (9-52) U/L Total Protein (6.3-8.2) g/dL Albumin (3.5-5.0) g/dL Venous US: report reviewed Assessment and Plan (1) DVT (deep venous thrombosis) Narrative/Plan: Patient has evidence of acute left upper extremity DVT, bilateral lower extremities are negative for DVT. Patient was diagnosed with extensive pulmonary embolism and LLE common femoral DVT on 09/06/2015. Patient was started on Xarelto, she does not recall missing any doses and states that she had been taking them with food, in the morning with breakfast. Xarelto is supposed to be taken with a high fat meal and is prescribed to be given with dinner but pt states eating well so absorption of the drug should have been adequate from her description. This would be considered anticoagulation failure with the formation of LUE clot while on therapy. Pt may have had the LUE clot previously but she was asymptomatic so this will be treated as failure. Patient was placed on a heparin drip but, unfortunately IV access was lost today about noon. Treatment dose of Lovenox 100 mg subcu twice a day ordered. Renal function was reviewed and is adequate her treatment with Lovenox. Patient states that she has experience giving insulin injections and she feels that she can handle Lovenox injections. Prescription was sent to the pharmacy for co-pay verification, case management informed. Case was discussed with internal medicine. Status: Acute (2) Breast cancer Narrative/Plan: patient has a follow-up scheduled with Dr. Velez next week. Patient is also following up with Dr. Mckeon of radiation oncology for evaluation post treatment for brain metastases. Patient will continue Arimidex for now. Status: Chronic (3) Anemia Narrative/Plan: Pt was not previously as anemic as she is presenting, labs will be ordered for evaluation. Status: Acute
--- NOTE | 2016-10-25 17:31 | PN ---
DATE OF SERVICE: 10/25/2016 This 70-year-old woman who was admitted with acute DVT of the left arm, now in the left internal jugular and subclavian axillary, is on IV heparin. The patient had probably Xarelto failure. Vascular Surgery is following the patient closely. No chest pain. No palpitation. No fever. On exam, alert and oriented x3. Pulse 94, blood pressure 130/72, respiration 16, temperature 98.6, pulse ox 96% on room air. HEENT: Conjunctivae normal. NECK: No jugular venous distention. CARDIOVASCULAR SYSTEM: S1, S2 muffled. RESPIRATORY SYSTEM: Breath sounds diminished at the bases. No rhonchi. No crackles. ABDOMEN: Soft, non-tender. No mass palpable. LEGS: No edema. No swelling. NERVOUS SYSTEM: No focal deficit. EXAMINATION OF THE LEFT ARM: Some swelling present. LABS: WBC 3.5, hemoglobin 8.6. Albumin is 2.6. ASSESSMENT: 1. Acute deep venous thrombosis of the left arm involving the left internal jugular as well as subclavian and axillary and brachial vein on the left side. 2. Stage IV breast cancer with brain metastasis. 3. Possible Xarelto failure. 4. History of recent right lower lobe pneumonia with sepsis, septic shock and hypotension and multiple complications. 5. Change in mental status, metabolic encephalopathy, acute on chronic, multifactorial. 6. Gait dysfunction. 7. Anemia, leukopenia and pancytopenia secondary to malignancy. 8. Increased AST, ALT, possibly hepatitis, acute, non-specific. 9. Increased creatinine with mild acute renal failure, possibly prerenal, acute tubular necrosis. 10. History of asthma and chronic obstructive pulmonary disease. 11. History of deep venous thrombosis. 12. History of pulmonary embolism. 13. History of gastroesophageal reflux disease. 14. History of hypertension. 15. History of degenerative joint disease. 16. History of right breast cancer with brain metastasis, as mentioned earlier. 17. History of appendectomy. 18. History of cholecystectomy. 19. History of depression not otherwise specified. 20. Remote history nicotine dependence. 21. Obesity with body mass index of 34.1. 22. Gait dysfunction. 23. FULL CODE. RECOMMENDATIONS AND DISCUSSION: In this 70-year-old woman who presented with multiple complex medical issues, we will monitor the patient closely, continue the current medications, continue with symptomatic treatment. Otherwise at this time I would recommend continuing with IV heparin. Ajayx is a possibility. Will closely monitor with Hematology/Oncology. Further recommendations to follow.
[2016-10-25 17:53] LABS: Iron 18 ug/dL (37-170)
[2016-10-25 18:02] LABS: % Iron Saturation 6.5 % (20-50); Total Iron Binding Capacity 276 ug/dL (265-497)
[2016-10-25 18:44] LABS: Vitamin B12 >1000 pg/mL
[2016-10-25] MEDS: DOCUSATE 100 MG CAP PO SCH (21:11)
[2016-10-26] MEDS: FAMOTIDINE 20 MG TAB PO SCH (05:42)
[2016-10-26] MEDS: ALBUTEROL NEBULIZED 2.5 MG/3 ML INHALATION SCH ×4 (07:14→21:37)
[2016-10-26] MEDS: SYMBICORT 160-4.5 MCG INHALER INHALATION SCH ×2 (07:15→21:37)
--- NOTE | 2016-10-26 07:18 | P.PN ---
Progress Note - Text Patient seen and evaluated. Please see full dictated consultation. Patient has DVT along the left internal jugular vein and left shoulder. She has been seen by vascular regarding management of her DVT. She has poor peripheral access. Alternatives including PICC line may be of benefit. Patient currently on anticoagulants which will need to be held prior to any port placement. Recommend duplex ultrasound of right upper extremity to evaluate for DVTs as well. We'll follow.
[2016-10-26 08:17] LABS: Basophils % (A) 1 %; CH 29.9; CHCM 30.6; Eosinophils # (A) 0.1 k/uL (0-0.7); Eosinophils % (A) 3 %; HCT 28.3 % (34.0-46.0); HDW 3.24; HGB 8.7 gm/dL (11.4-16.0); Hypochromasia Marked; Luc # (Auto) 0.12; Luc % (Auto) 3; Lymphocytes # (A) 1.3 k/uL (1.0-4.8); Lymphocytes % (A) 32 %; MCHC 30.6 g/dL (31.0-37.0); Mean Platelet Volume 7.2; Monocytes # (A) 0.3 k/uL (0-1.0); Monocytes % (A) 8 %; Neutrophils # (A) 2.1 k/uL (1.3-7.7); Neutrophils % (A) 53 %; RBC 2.89 m/uL (3.80-5.40); RDW 15.2 % (11.5-15.5); WBC 3.9 k/uL (3.8-10.6); WBC (Perox) 3.93
[2016-10-26 08:27] LABS: ALT 60 U/L (9-52); AST 40 U/L (14-36); Alkaline Phosphatase 51 U/L (38-126); Anion Gap 8 mmol/L; Blood Urea Nitrogen 8 mg/dL (7-17); Calcium 9.3 mg/dL (8.4-10.2); Carbon Dioxide 23 mmol/L (22-30); Chloride 113 mmol/L (98-107); Glucose 80 mg/dL (74-99); Non-African American GFR(MDRD) 54 (>60 ml/min/1.73 sqM); Sodium 144 mmol/L (137-145); Total Bilirubin 0.8 mg/dL (0.2-1.3); Total Protein 5.1 g/dL (6.3-8.2)
[2016-10-26] MEDS: METOPROLOL TARTRATE 25 MG TAB PO SCH ×2 (09:16→20:22)
[2016-10-26] MEDS: ANASTROZOLE 1 MG TAB PO SCH (09:16)
[2016-10-26] MEDS: GABAPENTIN 300 MG CAP PO SCH ×3 (09:16→20:22)
[2016-10-26] MEDS: DEXAMETHASONE 4 MG TAB PO SCH (09:16)
[2016-10-26] MEDS: ENOXAPARIN 100 MG/ML SYRINGE SQ SCH ×2 (09:16→20:22)
[2016-10-26] MEDS ORDERED: SODIUM FERRIC GLUCONAT-SUCROSE 125 MG in SODIUM CHLORIDE 0.9% 100 ML IVPB SCH (11:00)
[2016-10-26] MEDS: FOLIC ACID 1 MG TAB PO SCH (12:30)
[2016-10-26] MEDS: THIAMINE 100 MG TAB PO SCH (12:30)
--- NOTE | 2016-10-26 12:44 | US ---
EXAMINATION TYPE: US venous doppler duplex UE RT DATE OF EXAM: 10/26/2016 12:24 PM COMPARISON: NONE CLINICAL HISTORY: Rule out DVT. SIDE PERFORMED: Right Visualized structures include subclavian and axillary brachial and ulnar veins. The basilic vein was also imaged. Cephalic vein cannot be visualized during this exam. Right Arm: Appears negative for DVT. Cephalic v, not visualized. IMPRESSION: No deep venous thrombosis right upper extremity.
--- NOTE | 2016-10-26 14:30 | P.PN ---
Subjective Principal diagnosis: LUE DVT Pt seen today in follow up. She is doing well with the lovenox injections, her RUE was evaluated for DVT as she is being considered for port or PICC placement due to poor peripheral access. Pt states feeling good, no fevers, nausea, pain , she had a loose stool this AM, no bleeding, she is ambulatory, eating and drinking well. Objective - Vital Signs Vital signs: Vital Signs Temp 98.7 F 10/25/16 21:10 Pulse 90 10/26/16 11:35 Resp 18 10/26/16 07:00 BP 137/87 10/26/16 07:00 Pulse Ox 95 10/26/16 07:00 Intake & Output 10/25/16 10/26/16 10/26/16 18:59 06:59 18:59 Intake Total 413.817 590 450 Balance 413.817 590 450 Weight 92.896 kg Intake: Intake, IV Titration 163.817 Amount Heparin Sodium,Porcine/ 163.817 D5w Pmx 25,000 unit In Dextrose/Water 1 500ml. bag @ 18 UNITS/KG/HR 33. 44 mls/hr IV .[id number] [facility] Rx#:[id number] Oral 250 590 450 Other: Voiding Method Toilet Toilet # Voids 2 1 - Constitutional General appearance: Present: average body habitus, cooperative, no acute distress - EENT Eyes: Present: normal appearance - Respiratory Respiratory: bilateral: CTA - Cardiovascular Details: LUE mild swelling, left chest wall has venous prominence Heart sounds: normal: S1, S2 - Gastrointestinal General gastrointestinal: Present: normal bowel sounds, soft - Psychiatric Psychiatric: Present: A&O x's 3, appropriate affect, intact judgment & insight - Labs CBC & Chem 7: 10/26/16 07:38 10/26/16 07:38 Labs: Abnormal Lab Results - Last 24 Hours (Table) 10/25/16 10/25/16 10/26/16 Range/Units 16:42 16:42 07:38 RBC 2.89 L (3.80-5.40) m/uL Hgb 8.7 L (11.4-16.0) gm/dL Hct 28.3 L (34.0-46.0) % MCHC 30.6 L (31.0-37.0) g/dL Chloride (98-107) mmol/L Iron 18 L (37-170) ug/dL % Saturation 6.5 L (20-50) % AST (14-36) U/L ALT (9-52) U/L Total Protein (6.3-8.2) g/dL Albumin (3.5-5.0) g/dL RBC Folate >1,938 H (280 - 791) ng/mL 10/26/16 Range/Units 07:38 RBC (3.80-5.40) m/uL Hgb (11.4-16.0) gm/dL Hct (34.0-46.0) % MCHC (31.0-37.0) g/dL Chloride 113 H (98-107) mmol/L Iron (37-170) ug/dL % Saturation (20-50) % AST 40 H (14-36) U/L ALT 60 H (9-52) U/L Total Protein 5.1 L (6.3-8.2) g/dL Albumin 2.7 L (3.5-5.0) g/dL RBC Folate (280 - 791) ng/mL - Imaging and Cardiology Venous US: report reviewed Assessment and Plan (1) DVT (deep venous thrombosis) Narrative/Plan: Pt is on lovenox, Rx prior auth and copay verification in process. Pt will be on anticoagulation lifetime. Status: Acute (2) Breast cancer Narrative/Plan: Pt has completed WBRT, she has f/u sched with Rad Onc and Med Onc in the next few weeks, plan of care will follow. Status: Chronic (3) Anemia Narrative/Plan: Labs indicate iron deficiency. Will start oral iron then reevaluated and provide parenteral iron if appropriate in the outpatient setting. Status: Acute
--- NOTE | 2016-10-26 16:38 | P.GSCN ---
<Nicole Drake Lauren - Last Filed: 10/26/16 16:25> History of Present Illness Consult date: 10/26/16 Reason for Consult: Surgical eval for IV access consideration for MediPort History of present illness: 70-year-old female being seen by surgical service at the request of the attending for consideration of a MediPort due to poor peripheral access. Dopplers to her right upper extremity were done today showed no evidence of a DVT patient does have a history of metastatic breast cancer. Patient was diagnosed in April 2012 patient underwent a modified radical mastectomy with lymph node dissection. Patient's been followed by hematology oncology service. Patient did undergo a course of chemotherapy for the breast cancer. Unfortunately patient was diagnosed with brain metastasis in June 2016. The biopsy of the brain confirmed that it was metastatic breast cancer. Patient underwent whole brain radiation therapy. Subsequent the patient underwent in August 2016 developing weakness to the left lower extremity diagnosed with a DVT in the bilateral pulmonary emboli started on Xarelto. At that time the patient was transferred to an ECF facility for rehab. Patient recently underwent treatment for pneumonia within the last several weeks patient 's past surgical history appendectomy, cholecystectomy in the right mastectomy right nephrectomy Review of Systems Essentially unremarkable except as mentioned in the present illness Past Medical History Past Medical History: Asthma, Cancer, COPD, Deep Vein Thrombosis (DVT), GERD/ Reflux, Hypertension, Osteoarthritis (OA), Pulmonary Embolus (PE), Renal Disease Additional Past Medical History / Comment(s): RT breast,-SX AND 10 RADIATION [place] , Brain , and RT kidney cancer. PT STATED SHE IS RT SIDE DOMINANT BUT D/T BRAIN METS HAS PROBLEMS AT TIMES WITH LOSS OF CONTROL SO EATING AND WRITING DIFFICULT-HAS SPECIAL UTENSILS AT HOME.PT UNSURE OF DARTES ON VACCINES History of Any Multi-Drug Resistant Organisms: None Reported Past Surgical History: Appendectomy, Cholecystectomy Additional Past Surgical History / Comment(s): RT mastectomy-"25 LYMPH NODES REMOVED AND 15 WERE POSITIVE FOR CANCER" , R wrist fx repair, right nephrectomy , brain biopsy, TUBES IN EARS Past Anesthesia/Blood Transfusion Reactions: No Reported Reaction Past Psychological History: Depression Additional Psychological History / Comment(s): AT TIME OF THIS ADMIT PT DENIES ANY PROBLEM WITH DEPRESSION, NO THOUGHTS OF WANTING TO OR HARMING SELF.JUST FRUSTRATED BECAUSE SHE HAS DIFFICULTY DOING THINGS HERSELF AT THIS TIME. PT IS LIVES IN HOME WITH SPOUSE ,5 DOGS-HAS 6 STEPS INTO HOME .STATED "RUNS A ROOM AND BOARD- HAS 2 RENTERS", PT USES A 4 WHEELED WALKER, HAS A SHOWER CHAIR, BSC, RAILING FOR STEPS. NO OUTSIDE SERVICES Smoking Status: Former smoker Past Alcohol Use History: Rare Additional Past Alcohol Use History / Comment(s): STARTED SMOKING 1967, QUIT 2015, SMOKED 1/2-1 PPD. Past Drug Use History: None Reported - Past Family History Mother Family Medical History: No Reported History Additional Family Medical History / Comment(s): pt adopted no family history known Medications and Allergies Home Medications Medication Instructions Recorded Confirmed Type Cimetidine [Tagamet] 400 mg PO DAILY@0600 05/26/14 10/22/16 History Beclomethasone Dipropionate [Qvar 1 - 2 puff INHALATION RT-BID PRN 06/25/15 History 80 mcg/puff] Multivit with Calcium,Iron,Min 1 tab PO DAILY@0900 06/25/15 10/22/16 History [Women's Daily Multivitamin] Anastrozole [Arimidex] 1 mg PO DAILY@0900 09/04/16 10/22/16 History Dexamethasone 1 mg PO DAILY@0900 10/13/16 10/22/16 History LORazepam [Ativan] 0.5 mg PO BID PRN 10/13/16 10/22/16 History Metoprolol Tartrate [Lopressor] 25 mg PO BID@0900,2100 10/13/16 10/22/16 History Acetaminophen [Tylenol] 650 mg PO Q4H PRN 10/17/16 10/22/16 History Albuterol Nebulized [Ventolin 2.5 mg INHALATION RT-Q4H PRN 10/17/16 10/22/16 History Nebulized] Albuterol Nebulized [Ventolin 2.5 mg INHALATION RT-QID 10/17/16 10/22/16 History Nebulized] Arginaid Extra Liquid 1 can PO AC-BID@0900,1700 10/17/16 10/22/16 History Docusate [Colace] 100 mg PO HS@209910/17/16 10/22/16 History Gabapentin [Neurontin] 300 mg PO TID@0900,1300,209910/17/16 10/22/16 History HYDROcodone/APAP 7.5-325MG [[place] 1 tab PO Q6H PRN 10/17/16 10/22/16 History 7.5-325] Allergies Allergy/AdvReac Type Severity Reaction Status Date / Time ciprofloxacin HCl Allergy Itching Verified 10/22/16 14:18 [From Cipro] NSAIDS (Non-Steroidal Allergy Rash/Hives Verified 10/22/16 14:18 Anti-Inflamma aripiprazole [From Abilify] AdvReac sleepiness Verified 10/22/16 14:18 Penicillins AdvReac Nausea Verified 10/22/16 14:18 Surgical - Exam Vital Signs Temp Pulse Resp BP Pulse Ox 97.4 F L 103 H 20 135/76 99 10/22/16 13:06 10/22/16 13:06 10/22/16 13:06 10/22/16 13:06 10/22/16 13:06 GENERAL APPEARANCE: The patient is alert, oriented to self and place, in no acute distress. Pleasant cooperative VITAL SIGNS: Reviewed HEENT: Head is normocephalic and atraumatic. Pupils are equal and reactive. The nares are patent. Oropharynx is clear without lesions. NECK: Supple without lymphadenopathy. Traches midline. HEART: S1, S2. Regular rate and rhythm. No murmur noted LUNGS: No crackles or wheezes are heard. ABDOMEN: Soft, nontender, nondistended with good bowel sounds. No peritoneal signs. No palpable organomegaly or masses. EXTREMITIES: Normal skin color and turgor. The left upper extremity swollen. Radial pedal pulses are 2/4 bilaterally. NEUROLOGICAL: No focal deficits. Strength and sensation are grossly intact. Results - Labs 10/26/16 07:38 10/26/16 07:38 Abnormal Lab Results - Last 24 Hours (Table) 10/25/16 10/25/16 10/26/16 Range/Units 16:42 16:42 07:38 RBC 2.89 L (3.80-5.40) m/uL Hgb 8.7 L (11.4-16.0) gm/dL Hct 28.3 L (34.0-46.0) % MCHC 30.6 L (31.0-37.0) g/dL Chloride (98-107) mmol/L Iron 18 L (37-170) ug/dL % Saturation 6.5 L (20-50) % AST (14-36) U/L ALT (9-52) U/L Total Protein (6.3-8.2) g/dL Albumin (3.5-5.0) g/dL RBC Folate >1,938 H (280 - 791) ng/mL 10/26/16 Range/Units 07:38 RBC (3.80-5.40) m/uL Hgb (11.4-16.0) gm/dL Hct (34.0-46.0) % MCHC (31.0-37.0) g/dL Chloride 113 H (98-107) mmol/L Iron (37-170) ug/dL % Saturation (20-50) % AST 40 H (14-36) U/L ALT 60 H (9-52) U/L Total Protein 5.1 L (6.3-8.2) g/dL Albumin 2.7 L (3.5-5.0) g/dL RBC Folate (280 - 791) ng/mL Diabetes panel 10/26/16 Range/Units 07:38 Sodium 144 (137-145) mmol/L Potassium 4.0 (3.5-5.1) mmol/L Chloride 113 H (98-107) mmol/L Carbon Dioxide 23 (22-30) mmol/L BUN 8 (7-17) mg/dL Creatinine 1.02 (0.52-1.04) mg/dL Glucose 80 (74-99) mg/dL Calcium 9.3 (8.4-10.2) mg/dL AST 40 H (14-36) U/L ALT 60 H (9-52) U/L Alkaline Phosphatase 51 (38-126) U/L Total Protein 5.1 L (6.3-8.2) g/dL Albumin 2.7 L (3.5-5.0) g/dL Calcium panel 10/26/16 Range/Units 07:38 Calcium 9.3 (8.4-10.2) mg/dL Albumin 2.7 L (3.5-5.0) g/dL Pituitary panel 10/26/16 Range/Units 07:38 Sodium 144 (137-145) mmol/L Potassium 4.0 (3.5-5.1) mmol/L Chloride 113 H (98-107) mmol/L Carbon Dioxide 23 (22-30) mmol/L BUN 8 (7-17) mg/dL Creatinine 1.02 (0.52-1.04) mg/dL Glucose 80 (74-99) mg/dL Calcium 9.3 (8.4-10.2) mg/dL Adrenal panel 10/26/16 Range/Units 07:38 Sodium 144 (137-145) mmol/L Potassium 4.0 (3.5-5.1) mmol/L Chloride 113 H (98-107) mmol/L Carbon Dioxide 23 (22-30) mmol/L BUN 8 (7-17) mg/dL Creatinine 1.02 (0.52-1.04) mg/dL Glucose 80 (74-99) mg/dL Calcium 9.3 (8.4-10.2) mg/dL Total Bilirubin 0.8 (0.2-1.3) mg/dL AST 40 H (14-36) U/L ALT 60 H (9-52) U/L Alkaline Phosphatase 51 (38-126) U/L Total Protein 5.1 L (6.3-8.2) g/dL Albumin 2.7 L (3.5-5.0) g/dL Assessment and Plan Plan: Impression Poor Peripheral IV access to be considered for MediPort placement Dopplers to the bilateral lower extremities no evidence of a DVT Positive DVT within the left internal jugular vein, subclavian vein, axillary vein and brachial vein for Doppler studies Diagnosed right breast cancer 2011 Metastatic breast cancer to the brain diagnosed in June 2016 Diagnosed with bilateral pulmonary emboli on Xarelto lifelong diagnosed August [address] Gomez will evaluate possible MediPort placement due to poor IV access if indicated the timing will need to be determined Alternatives including PICC line may be of benefit Currently anticoagulant xarelto has been held patient is on Lovenox will need to be held prior to any port placement Further surgical recommendations pending The above dictated assessment and findings were discussed with dr Gomez Impression and the plan of care have been dictated as directed. Nicole Drake nurse practitioner acting as a scribe for Patricia <Gail Gomez - Last Filed: 11/27/16 14:41> Surgical - Exam Vital Signs Temp Pulse Resp BP Pulse Ox 97.4 F L 103 H 20 135/76 99 10/22/16 13:06 10/22/16 13:06 10/22/16 13:06 10/22/16 13:06 10/22/16 13:06 Results - Labs 10/28/16 07:01 10/28/16 07:01 Assessment and Plan (1) DVT (deep venous thrombosis) Status: Acute (2) Malignant neoplasm metastatic to brain Status: Acute (3) Metastasis to brain Status: Acute (4) Breast cancer Status: Chronic
--- NOTE | 2016-10-26 17:42 | P.PN ---
Subjective Patient resting in bed states that of left arm has less edema. Surgery to insert a centrally for lab draws Objective - Vital Signs Vital signs: Vital Signs Temp 98.9 F 10/26/16 15:00 Pulse 90 10/26/16 15:55 Resp 18 10/26/16 15:00 BP 119/60 10/26/16 15:00 Pulse Ox 94 L 10/26/16 15:00 Intake & Output 10/25/16 10/26/16 10/26/16 18:59 06:59 18:59 Intake Total 413.817 590 450 Balance 413.817 590 450 Weight 92.896 kg Intake: Intake, IV Titration 163.817 Amount Heparin Sodium,Porcine/ 163.817 D5w Pmx 25,000 unit In Dextrose/Water 1 500ml. bag @ 18 UNITS/KG/HR 33. 44 mls/hr IV .[id number] [facility] Rx#:[id number] Oral 250 590 450 Other: Voiding Method Toilet Toilet # Voids 2 1 - Constitutional General appearance: Present: mild distress, obese - EENT Eyes: Present: PERRLA Ears: bilateral: normal - Neck Neck: Present: normal ROM - Respiratory Respiratory: bilateral: diminished - Cardiovascular Rhythm: regular - Integumentary Integumentary: Present: normal - Neurologic Neurologic: Present: CNII-XII intact - Musculoskeletal Musculoskeletal: Present: generalized weakness - Psychiatric Psychiatric: Present: A&O x's 3, appropriate affect, intact judgment & insight - Labs CBC & Chem 7: 10/26/16 07:38 10/26/16 07:38 Labs: Abnormal Lab Results - Last 24 Hours (Table) 10/25/16 10/25/16 10/26/16 Range/Units 16:42 16:42 07:38 RBC 2.89 L (3.80-5.40) m/uL Hgb 8.7 L (11.4-16.0) gm/dL Hct 28.3 L (34.0-46.0) % MCHC 30.6 L (31.0-37.0) g/dL Chloride (98-107) mmol/L Iron 18 L (37-170) ug/dL % Saturation 6.5 L (20-50) % AST (14-36) U/L ALT (9-52) U/L Total Protein (6.3-8.2) g/dL Albumin (3.5-5.0) g/dL RBC Folate >1,938 H (280 - 791) ng/mL 10/26/16 Range/Units 07:38 RBC (3.80-5.40) m/uL Hgb (11.4-16.0) gm/dL Hct (34.0-46.0) % MCHC (31.0-37.0) g/dL Chloride 113 H (98-107) mmol/L Iron (37-170) ug/dL % Saturation (20-50) % AST 40 H (14-36) U/L ALT 60 H (9-52) U/L Total Protein 5.1 L (6.3-8.2) g/dL Albumin 2.7 L (3.5-5.0) g/dL RBC Folate (280 - 791) ng/mL Assessment and Plan Plan: Assessment acute DVT left arm involving left internal jugular as well as subclavian brachial vein stage IV breast cancer with brain metastasis recent history of of right pneumonia with sepsis change in mental status metabolic encephalopathy acute and chronic multifactorial gait dysfunction pancytopenia secondary malignancy increased is TLT acute and specific mild acute renal failure history of asthma/COPD history of DVT history pulmonary realism GERD hypertension obesity BMI 34.1 Plan continue consultation with oncology vascular surgeon surgery for vascular access
[2016-10-26] MEDS: FERROUS SULFATE 325 MG TAB PO SCH (17:43)
[2016-10-26] MEDS: DOCUSATE 100 MG CAP PO SCH (20:22)
[2016-10-26] MEDS: HYDROcodone/APAP 7.5-325MG 1 EACH TAB PO PRN (22:17)
[2016-10-27] MEDS: FAMOTIDINE 20 MG TAB PO SCH (05:45)
[2016-10-27] MEDS: FERROUS SULFATE 325 MG TAB PO SCH ×2 (08:07→16:35)
[2016-10-27] MEDS: ENOXAPARIN 100 MG/ML SYRINGE SQ SCH (08:07)
[2016-10-27] MEDS: GABAPENTIN 300 MG CAP PO SCH ×4 (08:08→23:07)
[2016-10-27] MEDS: ANASTROZOLE 1 MG TAB PO SCH (08:10)
[2016-10-27] MEDS: METOPROLOL TARTRATE 25 MG TAB PO SCH ×2 (08:10→23:16)
[2016-10-27] MEDS: DEXAMETHASONE 4 MG TAB PO SCH (08:10)
[2016-10-27 08:20] LABS: Basophils % (A) 1 %; CH 29.5; CHCM 30.4; Eosinophils # (A) 0.1 k/uL (0-0.7); Eosinophils % (A) 4 %; HCT 27.4 % (34.0-46.0); HDW 3.23; HGB 8.7 gm/dL (11.4-16.0); Hypochromasia Marked; Luc # (Auto) 0.13; Luc % (Auto) 4; Lymphocytes # (A) 0.9 k/uL (1.0-4.8); Lymphocytes % (A) 28 %; MCH 30.8 pg (25.0-35.0); MCHC 31.7 g/dL (31.0-37.0); MCV 97.2 fL (80.0-100.0); Mean Platelet Volume 7.2; Monocytes # (A) 0.3 k/uL (0-1.0); Monocytes % (A) 10 %; Neutrophils # (A) 1.7 k/uL (1.3-7.7); Neutrophils % (A) 53 %; RBC 2.82 m/uL (3.80-5.40); RDW 15.2 % (11.5-15.5); WBC 3.3 k/uL (3.8-10.6); WBC (Perox) 3.24
[2016-10-27 08:36] LABS: ALT 66 U/L (9-52); AST 44 U/L (14-36); Alkaline Phosphatase 53 U/L (38-126); Anion Gap 8 mmol/L; Blood Urea Nitrogen 7 mg/dL (7-17); Calcium 9.4 mg/dL (8.4-10.2); Carbon Dioxide 23 mmol/L (22-30); Chloride 112 mmol/L (98-107); Glucose 74 mg/dL (74-99); Non-African American GFR(MDRD) 58 (>60 ml/min/1.73 sqM); Sodium 143 mmol/L (137-145); Total Bilirubin 0.7 mg/dL (0.2-1.3)
[2016-10-27] MEDS: SYMBICORT 160-4.5 MCG INHALER INHALATION SCH ×2 (09:44→22:13)
[2016-10-27] MEDS: THIAMINE 100 MG TAB PO SCH (11:05)
[2016-10-27] MEDS: FOLIC ACID 1 MG TAB PO SCH (11:05)
[2016-10-27] MEDS: ALBUTEROL NEBULIZED 2.5 MG/3 ML INHALATION SCH ×4 (12:02→22:13)
--- NOTE | 2016-10-27 12:26 | P.PN ---
Subjective Principal diagnosis: patient resting in bed without complaint. States left arm edema improving Patient awaiting for insertion of central line for venous access Objective - Vital Signs Vital signs: Vital Signs Temp 98.5 F 10/27/16 09:24 Pulse 68 10/27/16 12:17 Resp 18 10/27/16 09:24 BP 138/73 10/27/16 09:24 Pulse Ox 96 10/27/16 09:24 Intake & Output 10/26/16 10/27/16 10/27/16 18:59 06:59 18:59 Intake Total 690 400 Balance 690 400 Intake: Oral 690 400 Other: Voiding Method Toilet # Voids 2 - Constitutional General appearance: Present: obese - EENT Eyes: Present: PERRLA Ears: bilateral: normal - Neck Neck: Present: normal ROM - Respiratory Respiratory: right: wheezing - Cardiovascular Rhythm: regular - Integumentary Integumentary: Present: normal - Neurologic Neurologic: Present: CNII-XII intact - Musculoskeletal Musculoskeletal: Present: generalized weakness - Psychiatric Psychiatric: Present: A&O x's 3, appropriate affect, intact judgment & insight - Labs CBC & Chem 7: 10/27/16 07:40 10/27/16 07:40 Labs: Abnormal Lab Results - Last 24 Hours (Table) 10/27/16 10/27/16 Range/Units 07:40 07:40 WBC 3.3 L (3.8-10.6) k/uL RBC 2.82 L (3.80-5.40) m/uL Hgb 8.7 L (11.4-16.0) gm/dL Hct 27.4 L (34.0-46.0) % Lymphocytes # 0.9 L (1.0-4.8) k/uL Chloride 112 H (98-107) mmol/L AST 44 H (14-36) U/L ALT 66 H (9-52) U/L Total Protein 5.0 L (6.3-8.2) g/dL Albumin 2.7 L (3.5-5.0) g/dL Assessment and Plan Plan: assessment Acute on DVT left arm involving left internal jugular as well as subclavian axillary and brachial vein on the left side Stage IV breast cancer with brain metastasis History of recent right lower lobe pneumonia with sepsis Metabolic encephalopathy acute on chronic multifactorial Gait dysfunction Pancytopenia secondary malignancy Mild acute renal failure History of asthma/COPD History of DVT with pulmonary embolism History of GERD Hypertension Obesity BMI 34.1 Plan Port for venous access Continue consultation with Dr. Ceja oncology Vascular surgeon Surgery for IV access
--- NOTE | 2016-10-27 14:49 | P.PN ---
Subjective 70-year-old female being seen by surgical service at the request of the attending for MediPort placement patient has poor IV access this was discussed at the bedside with the surgeon Dr. Whaley this will be scheduled for tomorrow recommending holding any anticoagulation including Lovenox there's been no new events patient is aware the plan of care Objective - Vital Signs Vital signs: Vital Signs Temp 98.5 F 10/27/16 09:24 Pulse 68 10/27/16 12:17 Resp 18 10/27/16 09:24 BP 138/73 10/27/16 09:24 Pulse Ox 96 10/27/16 09:24 Intake & Output 10/26/16 10/27/16 10/27/16 18:59 06:59 18:59 Intake Total 690 400 Balance 690 400 Intake: Oral 690 400 Other: Voiding Method Toilet # Voids 2 - Exam Physical exam 70-year-old female resting comfortably in bed appears in no acute distress Lungs essentially clear adequate air movement Heart S1-S2 audible and regular Abdomen soft nontender not distended no reports of nausea vomiting extremities no edema - Labs CBC & Chem 7: 10/27/16 07:40 10/27/16 07:40 Labs: Abnormal Lab Results - Last 24 Hours (Table) 10/27/16 10/27/16 Range/Units 07:40 07:40 WBC 3.3 L (3.8-10.6) k/uL RBC 2.82 L (3.80-5.40) m/uL Hgb 8.7 L (11.4-16.0) gm/dL Hct 27.4 L (34.0-46.0) % Lymphocytes # 0.9 L (1.0-4.8) k/uL Chloride 112 H (98-107) mmol/L AST 44 H (14-36) U/L ALT 66 H (9-52) U/L Total Protein 5.0 L (6.3-8.2) g/dL Albumin 2.7 L (3.5-5.0) g/dL Assessment and Plan Plan: Impression Poor Peripheral IV access to be considered for MediPort placement Dopplers to the bilateral lower extremities no evidence of a DVT Positive DVT within the left internal jugular vein, subclavian vein, axillary vein and brachial vein for Doppler studies Diagnosed right breast cancer 2011 Metastatic breast cancer to the brain diagnosed in June 2016 Diagnosed with bilateral pulmonary emboli on Xarelto lifelong diagnosed August [address] Gomez will proceed with MediPort placement due to poor IV access scheduled for tomorrow Currently anticoagulant xarelto has been held patient is on Lovenox will need to be held prior to any port placement The above dictated assessment and findings were discussed with dr Gomez Impression and the plan of care have been dictated as directed. Nicole Drake nurse practitioner acting as a scribe for Patricia
[2016-10-27] MEDS: DOCUSATE 100 MG CAP PO SCH (23:06)
[2016-10-27] MEDS: HYDROcodone/APAP 7.5-325MG 1 EACH TAB PO PRN (23:08)
--- NOTE | 2016-10-28 06:05 | P.HPADDEND ---
H&P Addendum H&P Addendum Date: 10/28/16 Patient presents with history of metastatic breast cancer to the brain. Intravenous therapy requested. Patient has history of DVT of the left neck and shoulder with overall poor peripheral access. Duplex study of right side unremarkable for DVT. We'll proceed with port placement. Benefits and risks reviewed.
[2016-10-28] MEDS: FAMOTIDINE 20 MG TAB PO SCH (06:22)
[2016-10-28 07:54] LABS: Aty Lym Flag Slight; CH 29.1; CHCM 29.5; HCT 28.4 % (34.0-46.0); HDW 3.26; HGB 8.8 gm/dL (11.4-16.0); Hypochromasia Marked; MCH 30.5 pg (25.0-35.0); MCV 98.6 fL (80.0-100.0); RBC 2.88 m/uL (3.80-5.40); WBC 2.8 k/uL (3.8-10.6); WBC (Perox) 2.98
[2016-10-28 08:06] LABS: ALT 92 U/L (9-52); AST 107 U/L (14-36); Alkaline Phosphatase 87 U/L (38-126); Anion Gap 7 mmol/L; Blood Urea Nitrogen 8 mg/dL (7-17); Calcium 9.4 mg/dL (8.4-10.2); Carbon Dioxide 23 mmol/L (22-30); Chloride 112 mmol/L (98-107); Glucose 78 mg/dL (74-99); Non-African American GFR(MDRD) 56 (>60 ml/min/1.73 sqM); Sodium 142 mmol/L (137-145); Total Bilirubin 0.7 mg/dL (0.2-1.3)
[2016-10-28] MEDS: FERROUS SULFATE 325 MG TAB PO SCH ×2 (08:39→16:49)
[2016-10-28] MEDS: ANASTROZOLE 1 MG TAB PO SCH (08:39)
[2016-10-28] MEDS: DEXAMETHASONE 4 MG TAB PO SCH (08:39)
[2016-10-28] MEDS: METOPROLOL TARTRATE 25 MG TAB PO SCH ×2 (08:39→21:57)
[2016-10-28] MEDS: GABAPENTIN 300 MG CAP PO SCH ×3 (08:39→21:12)
[2016-10-28 08:40] LABS: Add Differential Manual Differential
[2016-10-28 08:48] LABS: Band Neutrophils % 0.5 %; Manual Review Performed; Nucleated Red Blood Cells 0 /100 WBC (0-0); Total Cells Counted 200
[2016-10-28] MEDS: ALBUTEROL NEBULIZED 2.5 MG/3 ML INHALATION SCH ×4 (09:18→19:22)
[2016-10-28] MEDS: SYMBICORT 160-4.5 MCG INHALER INHALATION SCH ×2 (09:18→19:22)
[2016-10-28] MEDS ORDERED: CLINDAMYCIN 900 MG in DEXTROSE 5% IN WATER 50 ML IVPB ONE ×2 (12:00)
--- NOTE | 2016-10-28 12:35 | P.PN ---
Subjective Principal diagnosis: Patient resting in bed continues to remain stable. Awaiting for surgery to insert IV access port Objective - Vital Signs Vital signs: Vital Signs Temp 98.7 F 10/28/16 07:00 Pulse 74 10/28/16 12:29 Resp 18 10/28/16 07:00 BP 143/77 10/28/16 07:00 Pulse Ox 95 10/28/16 07:00 Intake & Output 10/27/16 10/28/16 10/28/16 18:59 06:59 18:59 Intake Total 400 Balance 400 Intake: Oral 400 Other: Voiding Method Toilet # Voids 1 - Constitutional General appearance: Present: obese - EENT Eyes: Present: PERRLA Ears: bilateral: normal - Neck Neck: Present: normal ROM - Respiratory Respiratory: bilateral: CTA - Cardiovascular Rhythm: regular - Gastrointestinal General gastrointestinal: Present: soft - Integumentary Integumentary: Present: normal - Neurologic Neurologic: Present: CNII-XII intact - Musculoskeletal Musculoskeletal: Present: generalized weakness - Psychiatric Psychiatric: Present: A&O x's 3, appropriate affect, intact judgment & insight - Labs CBC & Chem 7: 10/28/16 07:01 10/28/16 07:01 Labs: Abnormal Lab Results - Last 24 Hours (Table) 10/28/16 10/28/16 Range/Units 07:01 07:01 WBC 2.8 L (3.8-10.6) k/uL RBC 2.88 L (3.80-5.40) m/uL Hgb 8.8 L (11.4-16.0) gm/dL Hct 28.4 L (34.0-46.0) % Lymphocytes # (Manual) 0.8 L (1.0-4.8) k/uL Chloride 112 H (98-107) mmol/L AST 107 H (14-36) U/L ALT 92 H (9-52) U/L Total Protein 5.0 L (6.3-8.2) g/dL Albumin 2.7 L (3.5-5.0) g/dL Assessment and Plan Plan: Assessment Acute DVT left arm involving left internal jugular as well as subclavian and axillary and brachial vein on the left side Stage IV breast cancer with brain metastasis History of right lower lobe pneumonia with shock change in mental status metabolic encephalopathy acute on chronic multifactorial Gait dysfunction Acute abdomen pancytopenia secondary malignancy mild acute renal failure History of asthma/COPD History of DVT History of pulmonary embolism GERD Hypertension Degenerative joint disease Obesity BMI 34 Plan Insertion of IV access port Continue consultation with oncology and vascular surgeon
[2016-10-28] MEDS: THIAMINE 100 MG TAB PO SCH (13:37)
[2016-10-28] MEDS: FOLIC ACID 1 MG TAB PO SCH (13:37)
[2016-10-28] MEDS ORDERED: LACTATED RINGERS 1,000 ML IV ONE (18:16)
[2016-10-28] MEDS ORDERED: LIDOCAINE 1% 20 ML VIAL (10MG/ML) FOR IV START INTRADERMA ONE (18:17)
[2016-10-28] MEDS ORDERED: ONDANSETRON 4 MG/2 ML VIAL IVP ONE (18:17)
[2016-10-28] MEDS ORDERED: KETAMINE 10 MG/ML 20 ML VIAL ONE (19:10)
[2016-10-28] MEDS ORDERED: LABETALOL 5 MG/ML VIAL MDV ONE (19:10)
[2016-10-28] MEDS ORDERED: MIDAZOLAM 2 MG/2 ML VIAL ONE (19:10)
[2016-10-28] MEDS ORDERED: fentaNYL (PF) 50 MCG/ML 2 ML AMP ONE (19:10)
[2016-10-28] MEDS ORDERED: LIDOCAINE (PF) 10 MG/ML 2 ML VIAL SQ ONE ×2 (19:33)
[2016-10-28] MEDS ORDERED: HEPARIN SODIUM,PORCINE 10,000 UNIT/ML 1 ML VIAL IV ONE (19:33)
[2016-10-28] MEDS ORDERED: HEPARIN SODIUM,PORCINE 100 UNIT/ML 5 ML VIAL IV ONE ×2 (19:33)
[2016-10-28] MEDS ORDERED: NALOXONE 0.4 MG/ML 1 ML VIAL IV PRN (20:30)
[2016-10-28] MEDS ORDERED: HYDROcodone/APAP 5-325MG 1 EACH TAB PO PRN (20:30)
--- NOTE | 2016-10-28 20:33 | P.PCN ---
Date of Procedure: 10/28/16 Preoperative Diagnosis: Metastatic breast cancer to the brain, chemotherapeutic access, DVT left neck and shoulder Postoperative Diagnosis: Same Procedure(s) Performed: Right IJ Mediport placement, 6-[place] by Bard, fluoroscopy 8 seconds, ultrasound right internal carotid and right internal jugular Implants: Bard 6-[place] Mediport Anesthesia: MAC, local Surgeon: Gail Gomez Estimated Blood Loss (ml): 5 Pathology: none sent Condition: stable Operative Findings: Patent right internal carotid and right internal jugular artery and vein. Port may be immediately used.
--- NOTE | 2016-10-28 20:47 | XR ---
EXAMINATION TYPE: XR chest 1V portable DATE OF EXAM: 10/28/2016 8:30 PM COMPARISON: 10/18/2016 HISTORY: Line placement TECHNIQUE: Single frontal view of the chest is obtained. FINDINGS: There is no heart failure nor confluent pneumonic infiltrate. There is right sided central venous catheter with tip in the superior vena cava. There is no pneumothorax. There are chest leads. IMPRESSION: No active cardiopulmonary disease. Heart and lungs are not significantly different than last exam.
[2016-10-28] MEDS: HYDROcodone/APAP 7.5-325MG 1 EACH TAB PO PRN (21:56)
[2016-10-28] MEDS: DOCUSATE 100 MG CAP PO SCH (21:57)
[2016-10-29] MEDS: FAMOTIDINE 20 MG TAB PO SCH (06:16)
--- NOTE | 2016-10-29 07:19 | FL ---
EXAMINATION TYPE: FL guided central line placement DATE OF EXAM: 10/28/2016 8:10 PM FLUOROSCOPY Fluoroscopy time of 8 seconds was used during Port-A-Cath insertion. 1 image/s document/s the proced ure.
[2016-10-29] MEDS: ALBUTEROL NEBULIZED 2.5 MG/3 ML INHALATION SCH ×2 (07:40→11:44)
[2016-10-29] MEDS: SYMBICORT 160-4.5 MCG INHALER INHALATION SCH (07:40)
[2016-10-29 08:27] VITALS: BP 119/66; RESP 18; TEMP 98.7
[2016-10-29] MEDS: ENOXAPARIN 100 MG/ML SYRINGE SQ SCH (09:05)
[2016-10-29] MEDS: METOPROLOL TARTRATE 25 MG TAB PO SCH (09:06)
[2016-10-29] MEDS: HYDROcodone/APAP 7.5-325MG 1 EACH TAB PO PRN (09:06)
[2016-10-29] MEDS: FERROUS SULFATE 325 MG TAB PO SCH (09:06)
[2016-10-29] MEDS: DEXAMETHASONE 4 MG TAB PO SCH (09:06)
[2016-10-29] MEDS: GABAPENTIN 300 MG CAP PO SCH ×2 (09:06→13:11)
[2016-10-29] MEDS: ANASTROZOLE 1 MG TAB PO SCH (09:06)
[2016-10-29 11:54] VITALS: PULSE 76
[2016-10-29] MEDS: THIAMINE 100 MG TAB PO SCH (13:11)
[2016-10-29] MEDS: FOLIC ACID 1 MG TAB PO SCH (13:11)
[2016-10-29 14:45] VITALS: BMI 34.0
--- NOTE | 2016-10-30 10:15 | DS ---
DATE OF ADMISSION: 10/22/2016 DATE OF DISCHARGE: 10/29/2016 DATE OF SERVICE: 10/29/2016 FINAL DIAGNOSES: 1. Acute deep venous thrombosis of the left arm involving the left internal jugular as well as subclavian and axillary and brachial vein on the left side. 2. Status post right IJ Mediport placement. 3. Stage IV breast cancer with brain metastases. 4. Possible Xarelto failure, on Lovenox. 5. History of recent right lower lobe pneumonia with sepsis, septic shock and hypotension multiple complications. 6. Change in mental status, metabolic encephalopathy, acute on chronic multifactorial. 7. Gait dysfunction. 8. Anemia, leukopenia and pancytopenia secondary to malignancy. 9. Increased AST, ALT; possible hepatitis, nonspecific. 10. Increased creatinine with mild acute renal failure, possible prerenal, acute tubular necrosis. 11. History of asthma, chronic obstructive pulmonary disease. 12. History of deep venous thrombosis. 13. History of pulmonary embolism. 14. History of gastroesophageal reflux disease. 15. History of hypertension. 16. History of degenerative joint disease. 17. History of right breast cancer with brain metastasis as mentioned earlier. 18. History of appendectomy. 19. History of cholecystectomy. 20. History of depression, not otherwise specified. 21. Remote history nicotine dependence. 22. Obesity with body mass index of 34.1. 23. FULL CODE. DISCHARGE DISPOSITION: Patient will be discharged in a stable condition with guarded prognosis. Total time taken 35 minutes. HISTORY OF PRESENT ILLNESS: This 70-year-old woman with a past medical history of multiple medical problems as mentioned earlier being followed by Dr. Ronnell Koo in the outpatient setting was admitted with significant DVT of the left arm and left upper limb and neck system, which is thought to be Xarelto failure. Lovenox was initiated. Patient was seen by multiple consultants and recommend outpatient followup. Lovenox is being arranged. On exam, vitals are stable. CARDIOVASCULAR SYSTEM: S1, S2, muffled. ABDOMEN: Soft. RESPIRATORY: A few rhonchi. No crackles. The patient's discharge advice: 1. Diet is cardiac. 2. Activity limited until followup. 3. Follow up with Dr. Koo in 2 to 3 days. 4. Follow up with Dr. Mckeon. 5. Follow up with Dr. Velez as mentioned earlier. The discharge medications are: 1. Arginaid Extra Liquid. 2. Tylenol 650 q.4 p.r.n. 3. Albuterol q.i.d. and p.r.n. 4. Arimidex 1 mg p.o. daily. 5. Qvar 1 to 2 puffs daily. 6. Symbicort 160/4.5 two puffs b.i.d. 7. Tagamet 400 mg p.o. daily. 8. Dexamethasone 1 mg p.o. daily. 9. Colace 100 mg p.o. q.h.s. 10. Lovenox 100 mg subcu b.i.d. 11. Iron sulfate 325 mg p.o. daily. 12. Folic acid 1 mg p.o. daily. 13. Neurontin 300 mg p.o. t.i.d. 14. [place] 7.5 q.6 p.r.n. 15. Ativan 0.5 mg b.i.d. 16. Lopressor 25 mg p.o. b.i.d. 17. Multivitamin 1 p.o. daily. Once again, the patient will be discharged in a stable condition with guarded prognosis.
--- NOTE | 2016-11-02 22:08 | P.OP ---
Date of Procedure: 10/28/16 Description of Procedure: SURGEON: SUSANA GUEVARA MD PURCHASING DIRECTOR: None. PREOPERATIVE DIAGNOSES: 1. Metastatic breast cancer to the brain 2. Need for chemotherapeutic access. 3. DVT left neck and shoulder. POSTOPERATIVE DIAGNOSES: 1. Metastatic breast cancer to the brain 2. Need for chemotherapeutic access. 3. DVT left neck and shoulder. PROCEDURES PERFORMED: 1. Ultrasound guided central venous access of the right internal jugular venous vein. 2. Fluoroscopic guidance for central venous access right internal jugular vein 8 seconds. 3. Placement of right internal jugular power port 6 Greek by Bard. ANESTHESIA: IV sedation with 20 mL 1% lidocaine. ESTIMATED BLOOD LOSS: 5 mL. SPECIMENS REMOVED: None. COMPLICATIONS: None. INDICATIONS: The patient is a 71-year-old female recently diagnosed with metastatic breast cancer to the brain. She presents for chemotherapeutic access for progression of her disease. Benefits and risks of surgical intervention were described including bleeding, infection, mechanical problems with his port. Informed consent was obtained. DESCRIPTION OR PROCEDURE: Patient was brought into the operating room, laid in supine position. After adequate IV sedation, the chest and bilateral neck were prepped and draped in a standard sterile fashion including the shoulder with ChloraPrep. Timeout protocol was confirmed with the surgical team regarding the patient's name, procedure to be performed including preoperative medications for antibiotics. Bilateral SCDs were placed. An ultrasound was used to capture views of the right internal jugular vein including right carotid artery, which was patent and without thrombus along its course. The right IJ was then localized using anesthetic for the skin. A 16 Greek needle was used to access the IJ. Threading was without difficultly as the needle was advanced into the IJ with dark nonpulsatile venous blood. A J-wire was placed under fluoroscopic guidance. Two fingerbreadths distal to the clavicle, on the lateral third, a transverse 1.5 to 2 cm incision was deepened into the skin after localizing the skin. A pocket was created for the port. The port on the back table was flushed with heparinized saline and then attached to the catheter tubing. An adapter was fastened to the actual port site over the tubing. The port easily had fit snug into the pocket. A subcutaneous tunneler was placed along the open end of the tubing and brought out through the separate stab incision. Fluoroscopic guidance confirmed no kinking along the tubing and the port site. Next, the J-wire was exchanged for a catheter sheath for which the tubing was cut to 21 cm and then advanced through the catheter sheath. The Peel-away sheath was then removed and the tubing was secured at the junction of the superior vena cava as well as the right atrium. This was all done under fluoroscopic guidance for a total of 8 seconds. Easy pullback as well as return and aspiration was obtained of the port site. The skin incision was closed using layers using 3-0 Vicryl for the subcu followed by 4-0 Monocryl in a running subcuticular fashion. At the stick site this was also reapproximated using 4-0 Monocryl. The incisions were covered with gauze and Tegaderm. The skin was cleansed and Dermabond was applied. A total of 20 mL of local anesthetic was placed. At the end of the procedure, needle, sponge, and instrument count was verified correct by medical or surgical instrument maker. Heparin lock of 5 mL was placed. The patient was awoken taken to the second stage postanesthesia care unit. The patient tolerated the procedure well. FINDINGS: 1. No thrombus encountered along the right carotid artery or internal jugular vein. 2. Access of the right internal jugular vein under ultrasound guidance. 3. Fluoroscopy of 8 seconds. 4. Final fluoroscopic image confirmed no mechanical kink of the port site or at the junction at the skin puncture site.
--- NOTE | 2016-11-27 14:37 | P.GSCN ---
History of Present Illness Consult date: 10/25/16 Reason for Consult: Need for chemotherapeutic access Requesting physician: Ronnell Koo History of present illness: The patient is a 71-year-old female with previous history of breast cancer. She was recently diagnosed with metastatic breast cancer to the brain. She has history of poor peripheral access including DVT along the left neck and arm. Per request of her provider, chemotherapeutic access is requested. Review of Systems CONSTITUTIONAL: History of weight gain. HEENT: Has trouble with vision. Occassional difficulty with swallowing. LYMPHATIC: Has lumps and bumps around the neck. ENDOCRINE: Denies any thyroid disorders. Denies any blood sugar glucose intolerance. RESPIRATORY: No recent pneumonia. Has dyspnea on exertion. CARDIOVASCULAR: No active chest pain, palpitations, or recent heart attacks. Has DVT of the neck and left arm. GASTROINTESTINAL: Has heart burn, No recent bright red blood per rectum. GENITOURINARY: Denies any blood in urine or increased urinary frequency. MUSCULOSKELETAL: Has back pain, stiffness, joint arthritis. NEUROLOGIC: Denies any numbness or tingling along the distal extremities. No seizure disorders or headaches. PSYCHIATRIC: Has depression or suidical ideation. HEMATOLOGIC: Has abnormal bleeding or bruising. BREASTS: Has breast cancer. Past Medical History Past Medical History: Asthma, Cancer, COPD, Deep Vein Thrombosis (DVT), GERD/ Reflux, Hypertension, Osteoarthritis (OA), Pulmonary Embolus (PE), Renal Disease Additional Past Medical History / Comment(s): RT breast,-SX AND 10 RADIATION [place] , Brain , and RT kidney cancer. PT STATED SHE IS RT SIDE DOMINANT BUT D/T BRAIN METS HAS PROBLEMS AT TIMES WITH LOSS OF CONTROL SO EATING AND WRITING DIFFICULT-HAS SPECIAL UTENSILS AT HOME.PT UNSURE OF DARTES ON VACCINES History of Any Multi-Drug Resistant Organisms: None Reported Past Surgical History: Appendectomy, Cholecystectomy Additional Past Surgical History / Comment(s): RT mastectomy-"25 LYMPH NODES REMOVED AND 15 WERE POSITIVE FOR CANCER" , R wrist fx repair, right nephrectomy , brain biopsy, TUBES IN EARS Past Anesthesia/Blood Transfusion Reactions: No Reported Reaction Past Psychological History: Depression Additional Psychological History / Comment(s): AT TIME OF THIS ADMIT PT DENIES ANY PROBLEM WITH DEPRESSION, NO THOUGHTS OF WANTING TO OR HARMING SELF.JUST FRUSTRATED BECAUSE SHE HAS DIFFICULTY DOING THINGS HERSELF AT THIS TIME. PT IS LIVES IN HOME WITH SPOUSE ,5 DOGS-HAS 6 STEPS INTO HOME .STATED "RUNS A ROOM AND BOARD- HAS 2 RENTERS", PT USES A 4 WHEELED WALKER, HAS A SHOWER CHAIR, BSC, RAILING FOR STEPS. NO OUTSIDE SERVICES Smoking Status: Former smoker Past Alcohol Use History: Rare Additional Past Alcohol Use History / Comment(s): STARTED SMOKING 1967, QUIT 2015, SMOKED 1/2-1 PPD. Past Drug Use History: None Reported - Past Family History Mother Family Medical History: No Reported History Additional Family Medical History / Comment(s): pt adopted no family history known Medications and Allergies Home Medications Medication Instructions Recorded Confirmed Type Cimetidine [Tagamet] 400 mg PO DAILY@0600 05/26/14 10/22/16 History Beclomethasone Dipropionate [Qvar 1 - 2 puff INHALATION RT-BID PRN 06/25/15 History 80 mcg/puff] Multivit with Calcium,Iron,Min 1 tab PO DAILY@0900 06/25/15 10/22/16 History [Women's Daily Multivitamin] Anastrozole [Arimidex] 1 mg PO DAILY@0900 09/04/16 10/22/16 History Dexamethasone 1 mg PO DAILY@0900 10/13/16 10/22/16 History LORazepam [Ativan] 0.5 mg PO BID PRN 10/13/16 10/22/16 History Metoprolol Tartrate [Lopressor] 25 mg PO BID@0900,2100 10/13/16 10/22/16 History Acetaminophen [Tylenol] 650 mg PO Q4H PRN 10/17/16 10/22/16 History Albuterol Nebulized [Ventolin 2.5 mg INHALATION RT-Q4H PRN 10/17/16 10/22/16 History Nebulized] Albuterol Nebulized [Ventolin 2.5 mg INHALATION RT-QID 10/17/16 10/22/16 History Nebulized] Arginaid Extra Liquid 1 can PO AC-BID@0900,1700 10/17/16 10/22/16 History Docusate [Colace] 100 mg PO HS@209910/17/16 10/22/16 History Gabapentin [Neurontin] 300 mg PO TID@0900,1300,209910/17/16 10/22/16 History HYDROcodone/APAP 7.5-325MG [Ona 1 tab PO Q6H PRN 10/17/16 10/22/16 History 7.5-325] Allergies Allergy/AdvReac Type Severity Reaction Status Date / Time ciprofloxacin HCl Allergy Itching Verified 10/22/16 14:18 [From Cipro] NSAIDS (Non-Steroidal Allergy Rash/Hives Verified 10/22/16 14:18 Anti-Inflamma aripiprazole [From Abilify] AdvReac sleepiness Verified 10/22/16 14:18 Penicillins AdvReac Nausea Verified 10/22/16 14:18 Surgical - Exam Vital Signs Temp Pulse Resp BP Pulse Ox 97.4 F L 103 H 20 135/76 99 10/22/16 13:06 10/22/16 13:06 10/22/16 13:06 10/22/16 13:06 10/22/16 13:06 GENERAL: Well developed and in no acute distress. Pleasant. HEENT: No sclera icterus. Extraocular movements grossly intact. Moist buccal mucosa. Head is atraumatic, normocephalic. Hears conversational speech. No nasal drainage. NECK: Supple without lymphadenopathy. No JV distention. CHEST: Non-labored respirations and equal bilateral excursions. Absent right breast. CARDIOVASCULAR: Regular rate and rhythm. Palpable 2+ radial pulses. ABDOMEN: Soft, nontender. Nondistended. MUSCULOSKELETAL: No clubbing, cyanosis or edema. NEUROLOGIC: No focal or lateralizing signs. PSYCH: Appropriate affect. Alert and oriented to person, place and time. Results - Labs 10/28/16 07:01 10/28/16 07:01 Abnormal Lab Results - Last 24 Hours (Table) 10/25/16 10/25/16 10/25/16 Range/Units 07:07 07:07 07:07 WBC 3.4 L (3.8-10.6) k/uL RBC 2.76 L (3.80-5.40) m/uL Hgb 8.6 L (11.4-16.0) gm/dL Hct 28.1 L (34.0-46.0) % MCV 101.9 H (80.0-100.0) fL MCHC 30.5 L (31.0-37.0) g/dL APTT 62.2 H (22.0-30.0) sec Chloride 112 H (98-107) mmol/L Iron (37-170) ug/dL % Saturation (20-50) % ALT 64 H (9-52) U/L Total Protein 4.9 L (6.3-8.2) g/dL Albumin 2.6 L (3.5-5.0) g/dL 10/25/16 Range/Units 16:42 WBC (3.8-10.6) k/uL RBC (3.80-5.40) m/uL Hgb (11.4-16.0) gm/dL Hct (34.0-46.0) % MCV (80.0-100.0) fL MCHC (31.0-37.0) g/dL APTT (22.0-30.0) sec Chloride (98-107) mmol/L Iron 18 L (37-170) ug/dL % Saturation 6.5 L (20-50) % ALT (9-52) U/L Total Protein (6.3-8.2) g/dL Albumin (3.5-5.0) g/dL Diabetes panel 10/25/16 Range/Units 07:07 Sodium 144 (137-145) mmol/L Potassium 3.7 (3.5-5.1) mmol/L Chloride 112 H (98-107) mmol/L Carbon Dioxide 24 (22-30) mmol/L BUN 8 (7-17) mg/dL Creatinine 0.98 (0.52-1.04) mg/dL Glucose 83 (74-99) mg/dL Calcium 9.2 (8.4-10.2) mg/dL AST 34 (14-36) U/L ALT 64 H (9-52) U/L Alkaline Phosphatase 57 (38-126) U/L Total Protein 4.9 L (6.3-8.2) g/dL Albumin 2.6 L (3.5-5.0) g/dL Calcium panel 10/25/16 Range/Units 07:07 Calcium 9.2 (8.4-10.2) mg/dL Albumin 2.6 L (3.5-5.0) g/dL Pituitary panel 10/25/16 Range/Units 07:07 Sodium 144 (137-145) mmol/L Potassium 3.7 (3.5-5.1) mmol/L Chloride 112 H (98-107) mmol/L Carbon Dioxide 24 (22-30) mmol/L BUN 8 (7-17) mg/dL Creatinine 0.98 (0.52-1.04) mg/dL Glucose 83 (74-99) mg/dL Calcium 9.2 (8.4-10.2) mg/dL Adrenal panel 10/25/16 Range/Units 07:07 Sodium 144 (137-145) mmol/L Potassium 3.7 (3.5-5.1) mmol/L Chloride 112 H (98-107) mmol/L Carbon Dioxide 24 (22-30) mmol/L BUN 8 (7-17) mg/dL Creatinine 0.98 (0.52-1.04) mg/dL Glucose 83 (74-99) mg/dL Calcium 9.2 (8.4-10.2) mg/dL Total Bilirubin 0.6 (0.2-1.3) mg/dL AST 34 (14-36) U/L ALT 64 H (9-52) U/L Alkaline Phosphatase 57 (38-126) U/L Total Protein 4.9 L (6.3-8.2) g/dL Albumin 2.6 L (3.5-5.0) g/dL Assessment and Plan (1) DVT (deep venous thrombosis) Status: Acute (2) Malignant neoplasm metastatic to brain Status: Acute (3) Metastasis to brain Status: Acute (4) Breast cancer Status: Chronic Plan: 1. Patient has DVT along the left internal jugular vein and left shoulder. She has been seen by vascular regarding management of her DVT. She has poor peripheral access. 2. Alternatives including PICC line may be of benefit. 3. Patient currently on anticoagulants which will need to be held prior to any port placement. 4. Recommend duplex ultrasound of right upper extremity to evaluate for DVTs as well. We'll follow.
== END 2016-10-29 15:25 | disposition home or self-care (01) | DRG 299 ==
LOC: EC 12:51 → 5MS5E 16:10 → 5ONC 10-24 16:12
PROVIDERS: ADMIT Family Medicine; ATTEND Family Medicine
PROC: 02HV33Z Insertion of Infusion Device into Superior Vena Cava, Percutaneous Approach (ICD-10-PCS; principal; 2016-10-28 12:25)
PROC: 0JH63WZ Insertion of Totally Implantable Vascular Access Device into Chest Subcutaneous Tissue and Fascia, Percutaneous Approach (ICD-10-PCS; principal; 2016-10-28 12:25)
PROC: B5181ZA Fluoroscopy of Superior Vena Cava using Low Osmolar Contrast, Guidance (ICD-10-PCS; principal; 2016-10-28 12:25)
PROC: B548ZZA Ultrasonography of Superior Vena Cava, Guidance (ICD-10-PCS; principal; 2016-10-28 12:25)
DX: I82.622 Acute embolism and thrombosis of deep veins of left upper extremity (principal); G93.41 Metabolic encephalopathy; N17.0 Acute kidney failure with tubular necrosis; D61.818 Other pancytopenia; C79.31 Secondary malignant neoplasm of brain; D68.69 Other thrombophilia; E66.01 Morbid (severe) obesity due to excess calories; J44.9 Chronic obstructive pulmonary disease, unspecified; I82.C12 Acute embolism and thrombosis of left internal jugular vein; I82.B12 Acute embolism and thrombosis of left subclavian vein; E61.1 Iron deficiency; F17.201 Nicotine dependence, unspecified, in remission; I10 Essential (primary) hypertension; J45.909 Unspecified asthma, uncomplicated; K21.9 Gastro-esophageal reflux disease without esophagitis; M19.90 Unspecified osteoarthritis, unspecified site; Z68.34 Body mass index [BMI] 34.0-34.9, adult; Z79.01 Long term (current) use of anticoagulants; Z85.3 Personal history of malignant neoplasm of breast; Z85.528 Personal history of other malignant neoplasm of kidney; Z79.811 Long term (current) use of aromatase inhibitors; Z79.899 Other long term (current) drug therapy; Z90.5 Acquired absence of kidney; Z86.711 Personal history of pulmonary embolism
CPT/HCPCS: 36415; 71010; 77001; 80053; 82607; 82728; 82747; 83540; 83550; 85025; 85610; 85730; 93970; 94640; 99285

== ENCOUNTER → 2016-11-04 | Outpatient (CLI) | payer MEDICARE, OTHER ==
--- NOTE | 2016-11-04 16:44 | MR ---
EXAMINATION TYPE: MR brain wo/w con DATE OF EXAM: 11/04/2016 1:31 PM COMPARISON: 06/30/2016 HISTORY: secondary malignant neoplasm of brain CONTRAST: Performed utilizing 18 mL intravenous MultiHance gadolinium contrast. TECHNIQUE: Multiplanar, multiecho imaging on a 3.0 Odalis magnet is performed through the brain. Stud y is performed within 24 hours of arrival to the hospital. The craniovertebral junction is normal. The pituitary is normal. Diffusion-weighted imaging is performed. There is a cortical area of hyperintensity along the midlin e in the left frontal gyrus. Cortical ischemic change could be considered at this level. Some subtle cortical enhancement along the right parietal-occipital watershed is not excluded. Correl ate with symptoms. There are scattered punctate areas of hyperintensity on T2 and Inversion Recovery weighted sequences which are non-specific but can be related to microvascular ischemic changes. Ventricles and sulci are appropriate for the patient age. There is a small area of enhancement within the posterior medial left cerebellum. Series 601 image 18 this measures 0.5 cm and could reflect a metastatic lesion. There is a 1.3 cm ring-enhancing lesion left thalamus. Enhancement appears to be along the right posterior parietal-occipital watershed regio n. Leptomeningeal metastasis could be considered. Tiny area of enhancement along the midline, series 601 image 69, could be a tiny metastatic lesions IMPRESSIONS: 1. Several ring-enhancing lesions within the brain including the left medial parietal vertex, posteri or left medial occipital region, a medial right occipital lesion, left thalamic lesion, medial inferi or left cerebellum, and abnormal enhancement in the right watershed leptomeningeal region. Findings c an be compatible with metastatic lesions. Distribution appears similar to 06/30/2016.
== END | disposition home or self-care (01) ==
LOC: RADMRIMAIN 11:46
PROVIDERS: ATTEND Radiology Radiation Oncology
DX: C79.31 Secondary malignant neoplasm of brain (principal); G93.9 Disorder of brain, unspecified
CPT/HCPCS: 70553; A9577

== ENCOUNTER 2016-11-23 01:54 | Emergency (ER) | payer MEDICARE, OTHER ==
[2016-11-23 01:59] VITALS: TEMP 97
[2016-11-23] MEDS ORDERED: SODIUM CHLORIDE 0.9% 1,000 ML IV STA ×2 (02:14)
--- NOTE | 2016-11-23 02:41 | ED ---
Fall HPI - General Chief Complaint: Fall Stated Complaint: FALL Time Seen by Provider: 11/23/16 01:54 Source: patient, family, EMS, old records reviewed Mode of arrival: EMS - History of Present Illness Initial Comments: This is a 71-year-old female history of breast cancer and metastatic disease to the brain was diagnosed the family believes in July of this year who apparently was doing well at 9:00 this past evening she apparently did fall out of bed sometime prior to admission. She was brought here for evaluation by EMS. She initially had an adequate blood glucose and blood pressure. The information was unclear until the arrived and was able to clarify the events. He states she had fallen out of bed and was moaning he knows that she has slurred speech. This apparently is new and again he states last time he saw her normal was around 9 PM last evening when she was given herself injections of a blood thinner. He is not sure what the name of the blood thinners. He does state that she had a biopsy done at [facility] in [place] in either July or August. At that time was within the metastatic brain cancer was diagnosed. No reports of recent fevers chills nausea vomiting sweats. MD Complaint: fall, other - Related Data Home Medications Medication Instructions Recorded Confirmed Cimetidine [Tagamet] 400 mg PO DAILY@0600 05/26/14 10/22/16 Beclomethasone Dipropionate [Qvar 1 - 2 puff INHALATION RT-BID PRN 06/25/15 80 mcg/puff] Multivit with Calcium,Iron,Min 1 tab PO DAILY@0900 06/25/15 10/22/16 [Women's Daily Multivitamin] Anastrozole [Arimidex] 1 mg PO DAILY@0900 09/04/16 10/22/16 Dexamethasone 1 mg PO DAILY@0900 10/13/16 10/22/16 LORazepam [Ativan] 0.5 mg PO BID PRN 10/13/16 10/22/16 Metoprolol Tartrate [Lopressor] 25 mg PO BID@0900,2100 10/13/16 10/22/16 Acetaminophen [Tylenol] 650 mg PO Q4H PRN 10/17/16 10/22/16 Albuterol Nebulized [Ventolin 2.5 mg INHALATION RT-Q4H PRN 10/17/16 10/22/16 Nebulized] Albuterol Nebulized [Ventolin 2.5 mg INHALATION RT-QID 10/17/16 10/22/16 Nebulized] Arginaid Extra Liquid 1 can PO AC-BID@0900,1700 10/17/16 10/22/16 Docusate [Colace] 100 mg PO HS@2100 10/17/16 10/22/16 Gabapentin [Neurontin] 300 mg PO TID@0900,1300,2100 10/17/16 10/22/16 HYDROcodone/APAP 7.5-325MG [[place] 1 tab PO Q6H PRN 10/17/16 10/22/16 7.5-325] Previous Rx's Medication Instructions Recorded Budesonide-Formot 160-4.5 Mcg 2 puff INHALATION RT-BID #1 puff 10/20/16 [Symbicort 160-4.5 Mcg Inhaler] Folic Acid 1 mg PO DAILY@1200 tab 10/20/16 Thiamine [Vitamin B-1] 100 mg PO DAILY@1200 tab 10/20/16 Enoxaparin [Lovenox] 100 mg SQ Q12H #60 syr 10/25/16 Ferrous Sulfate [Iron (65 MG 325 mg PO DAILY #30 tab 10/29/16 Elemental)] Allergies Allergy/AdvReac Type Severity Reaction Status Date / Time ciprofloxacin HCl Allergy Itching Verified 10/22/16 14:18 [From Cipro] NSAIDS (Non-Steroidal Allergy Rash/Hives Verified 10/22/16 14:18 Anti-Inflamma aripiprazole [From Abilify] AdvReac sleepiness Verified 10/22/16 14:18 Penicillins AdvReac Nausea Verified 10/22/16 14:18 Review of Systems ROS Statement: Those systems with pertinent positive or pertinent negative responses have been documented in the HPI. ROS Other: All systems not noted in ROS Statement are negative. Limitations: ROS unobtainable due to patients medical condition Past Medical History Past Medical History: Asthma, Cancer, COPD, Deep Vein Thrombosis (DVT), GERD/ Reflux, Hypertension, Osteoarthritis (OA), Pulmonary Embolus (PE), Renal Disease Additional Past Medical History / Comment(s): RT breast,-SX AND 10 RADIATION [place] , Brain , and RT kidney cancer. PT STATED SHE IS RT SIDE DOMINANT BUT D/T BRAIN METS HAS PROBLEMS AT TIMES WITH LOSS OF CONTROL SO EATING AND WRITING DIFFICULT-HAS SPECIAL UTENSILS AT HOME.PT UNSURE OF DARTES ON VACCINES History of Any Multi-Drug Resistant Organisms: None Reported Past Surgical History: Appendectomy, Cholecystectomy Additional Past Surgical History / Comment(s): RT mastectomy-"25 LYMPH NODES REMOVED AND 15 WERE POSITIVE FOR CANCER" , R wrist fx repair, right nephrectomy , brain biopsy, TUBES IN EARS Past Anesthesia/Blood Transfusion Reactions: No Reported Reaction Past Psychological History: Depression Additional Psychological History / Comment(s): AT TIME OF THIS ADMIT PT DENIES ANY PROBLEM WITH DEPRESSION, NO THOUGHTS OF WANTING TO OR HARMING SELF.JUST FRUSTRATED BECAUSE SHE HAS DIFFICULTY DOING THINGS HERSELF AT THIS TIME. PT IS LIVES IN HOME WITH SPOUSE ,5 DOGS-HAS 6 STEPS INTO HOME .STATED "RUNS A ROOM AND BOARD- HAS 2 RENTERS", PT USES A 4 WHEELED WALKER, HAS A SHOWER CHAIR, BSC, RAILING FOR STEPS. NO OUTSIDE SERVICES Smoking Status: Former smoker Past Alcohol Use History: Rare Additional Past Alcohol Use History / Comment(s): STARTED SMOKING 1967, QUIT 2015, SMOKED 1/2-1 PPD. Past Drug Use History: None Reported - Past Family History Mother Family Medical History: No Reported History Additional Family Medical History / Comment(s): pt adopted no family history known General Exam - General Exam Comments Initial Comments: This is a well-developed lethargic female she does demonstrate some left facial asymmetry but does move all her extremities Limitations: no limitations General appearance: alert, lethargic Head exam: Present: atraumatic, normocephalic, normal inspection ENT exam: Present: mucous membranes dry Neck exam: Present: normal inspection. Absent: tenderness, meningismus, lymphadenopathy Respiratory exam: Present: normal lung sounds bilaterally. Absent: respiratory distress, wheezes, rales, rhonchi, stridor Cardiovascular Exam: Present: normal rhythm, tachycardia, normal heart sounds. Absent: systolic murmur, diastolic murmur, rubs, gallop, clicks GI/Abdominal exam: Present: soft, normal bowel sounds. Absent: distended, tenderness, guarding, rebound, rigid Rectal exam: Present: deferred Extremities exam: Present: normal inspection, full ROM, normal capillary refill Back exam: Present: normal inspection Neurological exam: Present: altered. Absent: CN II-XII intact, motor sensory deficit Psychiatric exam: Present: other (Unable to fully assess) Skin exam: Present: warm, dry, intact, normal color. Absent: rash Course Vital Signs 11/23/16 11/23/16 01:55 03:16 Temperature 97.0 F L Pulse Rate 115 H 87 Respiratory 20 18 Rate Blood Pressure 143/105 143/85 O2 Sat by Pulse 95 96 Oximetry - Reevaluation(s) Reevaluation #1: 11/23/16 04:28 The patient had return from CAT scan and still remained awake somewhat lethargic but condescending of what we were telling her. Initial CAT scan results showed evidence of an interparenchymal bleed in the right side with some evidence of vasogenic edema the area of bleed measures 6.2 cm it is very mild evidence of mass effect. Some evidence of trace amount of subarachnoid hemorrhage I did discuss this with the radiologist please see the complete report Reevaluation #2: 11/23/16 04:30 The patient's was able to go back home and get the anticoagulant the patient was on it was Lovenox. Is it was unclear whether this was a bleed into a metastatic tumor or secondary to the fall out of bed the patient was converted to a priority 2 trauma. I did discuss case with Dr. Whaley. I did discuss the case with the patient's initially after he arrived after her arrival and later by phone patient is to be a full code with everything possibly done at this time. Patient will be accepted by Dr. Angel and Dr. Grossman. Due to the size of the area involved in the patient's current condition intubation was indicated for airway protection. Procedures - Intubation Time Out Performed: Yes Sedative: Versed Mg Given: 2 Paralytic: Succinylcholine Mg Given: 80 ET Tube Size: 7.5 ET Tube Uncuffed: No Tube Secured Depth (cm): 22 Tube Secured Location: lips Tube Placement Confirmation: visualized tube passing through cords, equal breath sounds bilaterally, confirmation by capnometry Patient Tolerated Procedure: well Intubation Complications: none (Review the post intubation x-ray reveals the tip of the tube to be approximately 2 and half centimeters above the maxime which was somewhat tortuous.) - Restraint - Face to Face Restraint Occurrence 1 Patient's Immediate Situation: Endangers self safety Patient's Reaction to the Intervention: Resistive to care Patient's Medical & Behavioral Condition: Awake, Confused Need to Continue or Terminate Restraint or Seclusion: Continue Face to Face Eval of Restraint Date: 11/23/16 Face to Face Eval of Restraint Time: 03:25 Medical Decision Making - Medical Decision Making I did discuss the findings with the patient prior to intubation as well as discussion with the patient's then 2 occasions. Patient will be transferred to [facility] for a higher level of care and neurosurgical evaluation. It is again unclear whether the inner parenchymal bleed was pre-or post fall out of bed. Initial history did not indicate a trauma designation of one or 2. - Lab Data Result diagrams: 11/23/16 02:40 11/23/16 02:40 Lab Results 11/23/16 11/23/16 11/23/16 Range/Units 02:00 02:40 02:40 WBC 4.2 (3.8-10.6) k/uL RBC 4.30 (3.80-5.40) m/uL Hgb 11.9 D (11.4-16.0) gm/dL Hct 37.5 (34.0-46.0) % MCV 87.1 D (80.0-100.0) fL MCH 27.8 (25.0-35.0) pg MCHC 31.9 (31.0-37.0) g/dL RDW 14.5 (11.5-15.5) % Plt Count 239 (150-450) k/uL Neutrophils % (Manual) 56.0 % Lymphocytes % (Manual) 29.0 % Monocytes % (Manual) 14.0 % Eosinophils % (Manual) 1.0 % Neutrophils # (Manual) 2.4 (1.3-7.7) k/uL Lymphocytes # (Manual) 1.2 (1.0-4.8) k/uL Monocytes # (Manual) 0.6 (0-1.0) k/uL Eosinophils # (Manual) 0.0 (0-0.7) k/uL Nucleated RBCs 0 (0-0) /100 WBC Manual Slide Review Performed Reactive Lymphocytes Present Hypochromasia Moderate Poikilocytosis Slight PT 11.7 (9.0-12.0) sec INR 1.2 (<1.1) APTT 25.0 (22.0-30.0) sec Sodium (137-145) mmol/L Potassium (3.5-5.1) mmol/L Chloride (98-107) mmol/L Carbon Dioxide (22-30) mmol/L Anion Gap mmol/L BUN (7-17) mg/dL Creatinine (0.52-1.04) mg/dL Est GFR (MDRD) Af Amer (>60 ml/min/1.73 sqM) Est GFR (MDRD) Non-Af (>60 ml/min/1.73 sqM) Glucose (74-99) mg/dL Calcium (8.4-10.2) mg/dL Magnesium (1.6-2.3) mg/dL Total Bilirubin (0.2-1.3) mg/dL AST (14-36) U/L ALT (9-52) U/L Alkaline Phosphatase (38-126) U/L Ammonia (<30) umol/L Total Creatine Kinase 25 L (30-135) U/L CK-MB (CK-2) <0.2 (0.0-2.4) ng/mL CK-MB (CK-2) Rel Index Troponin I 0.036 H* (0.000-0.034) ng/mL Total Protein (6.3-8.2) g/dL Albumin (3.5-5.0) g/dL Urine Color Urine Appearance (Clear) Urine pH (5.0-8.0) Ur Specific [place] (1.001-1.035) Urine Protein (Negative) Urine Glucose (UA) (Negative) Urine Ketones (Negative) Urine Blood (Negative) Urine Nitrite (Negative) Urine Bilirubin (Negative) Urine Urobilinogen (<2.0) mg/dL Ur Leukocyte Esterase (Negative) 11/23/16 11/23/16 11/23/16 Range/Units 02:40 02:40 03:12 WBC (3.8-10.6) k/uL RBC (3.80-5.40) m/uL Hgb (11.4-16.0) gm/dL Hct (34.0-46.0) % MCV (80.0-100.0) fL MCH (25.0-35.0) pg MCHC (31.0-37.0) g/dL RDW (11.5-15.5) % Plt Count (150-450) k/uL Neutrophils % (Manual) % Lymphocytes % (Manual) % Monocytes % (Manual) % Eosinophils % (Manual) % Neutrophils # (Manual) (1.3-7.7) k/uL Lymphocytes # (Manual) (1.0-4.8) k/uL Monocytes # (Manual) (0-1.0) k/uL Eosinophils # (Manual) (0-0.7) k/uL Nucleated RBCs (0-0) /100 WBC Manual Slide Review Reactive Lymphocytes Hypochromasia Poikilocytosis PT (9.0-12.0) sec INR (<1.1) APTT (22.0-30.0) sec Sodium 141 (137-145) mmol/L Potassium 3.4 L (3.5-5.1) mmol/L Chloride 104 (98-107) mmol/L Carbon Dioxide 21 L (22-30) mmol/L Anion Gap 16 mmol/L BUN 15 (7-17) mg/dL Creatinine 1.30 H (0.52-1.04) mg/dL Est GFR (MDRD) Af Amer 49 (>60 ml/min/1.73 sqM) Est GFR (MDRD) Non-Af 41 (>60 ml/min/1.73 sqM) Glucose 92 (74-99) mg/dL Calcium 10.9 H (8.4-10.2) mg/dL Magnesium 1.4 L (1.6-2.3) mg/dL Total Bilirubin 0.7 (0.2-1.3) mg/dL AST 51 H (14-36) U/L ALT 55 H (9-52) U/L Alkaline Phosphatase 53 (38-126) U/L Ammonia <9 (<30) umol/L Total Creatine Kinase (30-135) U/L CK-MB (CK-2) (0.0-2.4) ng/mL CK-MB (CK-2) Rel Index Troponin I (0.000-0.034) ng/mL Total Protein 6.0 L (6.3-8.2) g/dL Albumin 3.5 (3.5-5.0) g/dL Urine Color Yellow Urine Appearance Clear (Clear) Urine pH 5.5 (5.0-8.0) Ur Specific [place] 1.013 (1.001-1.035) Urine Protein Negative (Negative) Urine Glucose (UA) Negative (Negative) Urine Ketones 2+ H (Negative) Urine Blood Negative (Negative) Urine Nitrite Negative (Negative) Urine Bilirubin 1+ H (Negative) Urine Urobilinogen 2.0 (<2.0) mg/dL Ur Leukocyte Esterase Negative (Negative) - EKG Data -: EKG Interpreted by Me EKG shows normal: sinus rhythm (Sinus rhythm rate of 131 VA interval 162 QRS duration 58 daily since QTC of 392/578 low-voltage no acute ST-T wave changes occasional PVCs.) - Radiology Data Radiology results: report reviewed (I did review the x-ray no definite acute changes I did review the CAT scan and discussed the case with radiologist as above.), image reviewed Critical Care Time Critical Care Time: Yes Critical Care Time: 39 minutes of critical care time which included initial monitoring of the EMS run and discussed with paramedics history physical lab and x-rays CAT scans and evaluation of the above. Multiple re-evaluations the patient discussed with the patient's on 2 occasions. Discussion with the receiving facility on 2 occasions. Review of old documentation was available and documentation of the above. Patient will be on propofol for transfer. Disposition Clinical Impression: Intraparenchymal hemorrhage of brain, Malignant neoplasm metastatic to brain, Fall, Dehydration, Hypokalemia, Hypomagnesemia, Breast cancer Disposition: OTHER INSTITUTION NOT DEFINED Condition: Critical - Out of Hospital Transfer - Req. Specs Out of Hospital Transfer - Requested Specifics: Other Emergency Center
[2016-11-23 03:00] LABS: Aty Lym Flag Slight; CH 28.1; CHCM 32.2; HCT 37.5 % (34.0-46.0); HDW 3.73; Hypochromasia Moderate; MCH 27.8 pg (25.0-35.0); MCHC 31.9 g/dL (31.0-37.0); Mean Platelet Volume 7.9; Poikilocytosis Slight; RDW 14.5 % (11.5-15.5); WBC 4.2 k/uL (3.8-10.6); WBC (Perox) 4.25
[2016-11-23 03:03] LABS: Calcium 10.9 mg/dL (8.4-10.2); HGB 11.9 gm/dL (11.4-16.0); MCV 87.1 fL (80.0-100.0); Magnesium 1.4 mg/dL (1.6-2.3); Potassium 3.4 mmol/L (3.5-5.1); Total Bilirubin 0.7 mg/dL (0.2-1.3)
[2016-11-23 03:10] LABS: Creatine Kinase 25 U/L (30-135)
--- NOTE | 2016-11-23 03:19 | XR ---
EXAM: XR Chest, 1 View CLINICAL HISTORY: Reason: pain TECHNIQUE: Frontal view of the chest. COMPARISON: Chest x-ray dated 10/28/2016 FINDINGS: Lungs: Unremarkable. No consolidation. Pleural space: Unremarkable. No pneumothorax. Heart: Unchanged heart and mediastinal silhouette. Bones/joints: Unchanged osseous structures. Tubes, lines and devices: Stable right IJ Port-A-Cath with tip in the SVC. IMPRESSION: No acute findings.
[2016-11-23 03:23] LABS: Creatine Kinase MB <0.2 ng/mL (0.0-2.4)
[2016-11-23 03:25] LABS: Appearance,Urine Clear (Clear); Bilirubin,Urine 1+ (Negative); Glucose,Urine (UA) Negative (Negative); Ketones,Urine 2+ (Negative); Leukocyte Esterase,Urine Negative (Negative); Nitrite,Urine Negative (Negative); PH, Urine 5.5 (5.0-8.0); Protein,Urine Negative (Negative); Specific Gravity,Urine 1.013 (1.001-1.035); UA Billing (MACRO vs. MICRO) CHEM
[2016-11-23] MEDS ORDERED: POTASSIUM CHLORIDE 20 MEQ, LIDOCAINE 2% INJ 20 MG in SODIUM CHLORIDE 0.9% 100 ML IVPB ONE (03:26)
[2016-11-23] MEDS ORDERED: MAGNESIUM SULFATE-D5W PMX 1 GM in DEXTROSE/WATER 1 100ML.BAG IVPB ONE (03:26)
--- NOTE | 2016-11-23 03:27 | CT ---
ADDENDUM - Added by Pj Storey MD on 11/23/2016 3:32 AM (-07:00) Typographical error on prior report. Note that there is 6 mm, not 6 cm, of leftward midline shift. EXAM: CT Head Without Intravenous Contrast CLINICAL HISTORY: Reason: Pain TECHNIQUE: Axial computed tomography images of the head/brain without intravenous contrast. CTDI is 57.4 mGy and DLP is 1184.9 mGy-cm This CT exam was performed using one or more of the following dose reduction techniques: automated exposure control, adjustment of the mA and/or kV according to patient size, and/or use of iterative reconstruction technique. COMPARISON: Head CT dated 06/30/2016 FINDINGS: Brain: Large intraparenchymal hemorrhage seen within the right anterior temporal lobe measuring up to 6.2 cm (14-29). Small amount of adjacent vasogenic edema and mild mass effect on the adjacent right lateral ventricle and approximately 6 cm of leftward midline shift. Trace amount of associated subarachnoid hemorrhage. Punctate calcifications are seen throughout both cerebral hemispheres, which is grossly unchanged. Chronic small vessel ischemic disease and senescent changes. Ventricles: Unremarkable. No ventriculomegaly. Bones/joints: Evidence of right-sided craniotomy. No acute fracture. Soft tissues: Unremarkable. Sinuses: Minimal mucosal thickening of the paranasal sinuses. Mastoid air cells: Unremarkable as visualized. No mastoid effusion. IMPRESSION: 1. Large intraparenchymal hemorrhage seen within the right anterior temporal lobe measuring up to 6.2 cm (14-29). Small amount of adjacent vasogenic edema and mild mass effect on the adjacent right lateral ventricle and approximately 6 cm of leftward midline shift. 2. Trace amount of associated subarachnoid hemorrhage. EXAM: CT Cervical Spine Without Intravenous Contrast CLINICAL HISTORY: Reason: Pain TECHNIQUE: Axial computed tomography images of the cervical spine without intravenous contrast. CTDI is 24.8 mGy and DLP is 609.4 mGy-cm This CT exam was performed using one or more of the following dose reduction techniques: automated exposure control, adjustment of the mA and/or kV according to patient size, and/or use of iterative reconstruction technique. COMPARISON: C-spine CT dated 06/30/2016 FINDINGS: Vertebrae: No acute fracture or traumatic malalignment of the cervical spine. Discs/spinal canal/neural foramina: Mild multilevel degenerative changes with mild to moderate right C3-4 and C4-5 neural foraminal stenosis and marked left C4-5 and C5-6 neural foraminal stenosis. Soft tissues: Unremarkable. Thyroid: There are multiple calcifications within both thyroid lobes. Lung apices: The lung apices demonstrates atelectasis and scarring within lung apices. IMPRESSION: No acute fracture or traumatic malalignment of the cervical spine. [employer] 11/23/16 03:30 Call Doctor Regarding Above results, called Dr. Kitchen on 11/23 03:29 (-04:00)
[2016-11-23 03:31] LABS: Troponin I 0.036 ng/mL (0.000-0.034)
[2016-11-23 03:39] LABS: Add Differential Manual Differential
[2016-11-23 03:42] LABS: Manual Review Performed; Nucleated Red Blood Cells 0 /100 WBC (0-0); Reactive Lymphocytes Present; Total Cells Counted 100
[2016-11-23 03:45] LABS: INR 1.2 (<1.1); Prothrombin Time 11.7 sec (9.0-12.0)
[2016-11-23] MEDS ORDERED: MIDAZOLAM (PF) 1 MG/ML 5 ML VIAL IV STA (04:10)
[2016-11-23] MEDS ORDERED: SUCCINYLCHOLINE CHLORIDE VIAL 200 MG/10 ML VIAL IV STA (04:11)
[2016-11-23] MEDS ORDERED: PROPOFOL 500 MG in EMPTY BAG 1 BAG IV ONE (04:15)
[2016-11-23] MEDS ORDERED: LORazepam 2 MG/ML SYRINGE IV STA ×2 (04:24→05:05)
--- NOTE | 2016-11-23 04:35 | XR ---
EXAM: XR Chest, 1 View CLINICAL HISTORY: Reason: Pain TECHNIQUE: Frontal view of the chest. COMPARISON: Chest x-ray dated 11/23/2016 at 2:49 AM FINDINGS: Lungs: Unremarkable. No consolidation. Pleural space: Unremarkable. No pneumothorax. Heart: Unremarkable. No cardiomegaly. Mediastinum: Unremarkable. Bones/joints: Unremarkable. Tubes, lines and devices: Endotracheal tube terminating 1 cm above the maxime. Right IJ Port-A-Cath with tip in the SVC. IMPRESSION: Endotracheal tube terminating 1 cm above the maxime.
[2016-11-23 05:15] VITALS: BP 148/89; PULSE 104; RESP 16
== END 2016-11-23 05:36 | disposition short-term general hospital (02) ==
LOC: EC 01:54
DX: I60.8 Other nontraumatic subarachnoid hemorrhage (principal); C79.31 Secondary malignant neoplasm of brain; C50.911 Malignant neoplasm of unspecified site of right female breast; E86.0 Dehydration; E87.6 Hypokalemia; E83.42 Hypomagnesemia; K21.9 Gastro-esophageal reflux disease without esophagitis; I10 Essential (primary) hypertension; J45.909 Unspecified asthma, uncomplicated; J44.9 Chronic obstructive pulmonary disease, unspecified; M19.90 Unspecified osteoarthritis, unspecified site; Z87.891 Personal history of nicotine dependence; Z79.899 Other long term (current) drug therapy; Z88.0 Allergy status to penicillin; Z88.6 Allergy status to analgesic agent; Z88.1 Allergy status to other antibiotic agents; Z88.8 Allergy status to other drugs, medicaments and biological substances; Z86.711 Personal history of pulmonary embolism; Z86.718 Personal history of other venous thrombosis and embolism; Z85.528 Personal history of other malignant neoplasm of kidney; Z90.11 Acquired absence of right breast and nipple; Z90.5 Acquired absence of kidney; Z90.49 Acquired absence of other specified parts of digestive tract; W06.XXXA Fall from bed, initial encounter
CPT/HCPCS: 99291 ×2; 31500 ×2; 96365 ×2; 96366 ×2; 96368 ×2; 96375 ×2; 96376 ×2; 96361 ×2; 36415; 94002; 93005; 80053; 82140; 82550; 82553; 83735; 84484; 85025; 85610; 85730; 81003; 71010; 72125; 70450; J2001; J0330; J2060; J3480; J2250; J3475; J2704